=== PATIENT | female | born 1945 | race Caucasian/White ===

== ENCOUNTER → 2016-12-05 | Outpatient (CLI) | payer BC ==
[~2016-12-05] MED LIST: ANAS1TAB6 PO; ASPI81TA28 PO; CALC1CHW47 PO; CEPH500C PO; CHOL1CHW16 PO; CYAN100020 PO; ESCI10TA17 PO; FERR325T51 PO; FIBE1CHW PO; IRBE-37 PO; LXP10 PO; MAGN1CAP2 PO; METF1000 PO; METF500T PO; METO25TA56 PO; OMEG10007 PO; ONDA4TAB10 SL; PANT40TA PO; REPA1TAB42 PO; SIMV40TA2 PO; SITA100T3 PO
[2016-12-05 09:48] LABS: ALT/SGPT 28 U/L (12-78); BLOOD UREA NITROGEN 30 mg/dl (7-18); BUN/CREATININE RATIO 21.1 (10-20); CALCIUM 9.4 mg/dl (8.5-10.1); CARBON DIOXIDE 27 mmol/L (21-32); CHLORIDE 106 mmol/L (98-107); GLUCOSE 166 mg/dl (70-99); MAGNESIUM 1.4 mg/dl (1.8-2.4); POTASSIUM 4.6 mmol/L (3.5-5.1); SODIUM 142 mmol/L (136-145)
[2016-12-05 09:52] LABS: ALB/GLOB RATIO 1.1 (0.9-2); ALKALINE PHOSPHATASE 75 U/L (45-117); AST/SGOT 23 U/L (15-37); CHOLESTEROL 112 mg/dl (0-200); CHOLESTEROL/HDL RATIO 2.4; HDL CHOLESTEROL 47 mg/dl; LDL CHOLESTEROL CALCULATED 48 mg/dl; TRIGLYCERIDES 84 mg/dl (0-150); VERY LOW DENSITY LIPOPROT CALC 17 mg/dl
[2016-12-05 10:02] LABS: ESTIMATED AVERAGE GLUCOSE 123 mg/dl; HA1C FLAG Normal (Normal)
== END | disposition home or self-care (01) ==
LOC: C.LAB 08:46
PROVIDERS: ATTEND Internal Medicine Geriatric Medicine
DX: I10 Essential (primary) hypertension (principal); E78.5 Hyperlipidemia, unspecified; I25.10 Atherosclerotic heart disease of native coronary artery without angina pectoris; E11.9 Type 2 diabetes mellitus without complications; R94.39 Abnormal result of other cardiovascular function study; Z12.31 Encounter for screening mammogram for malignant neoplasm of breast; Z85.3 Personal history of malignant neoplasm of breast

== ENCOUNTER → 2016-12-05 | Outpatient (CLI) | payer BC ==
--- NOTE | 2016-12-09 13:32 | MAMMOGRAPHY REPORT ---
UNILATERAL LEFT DIGITAL SCREENING MAMMOGRAM TOMOSYNTHESIS WITH CAD: 12/05/2016 CLINICAL HISTORY: Asymptomatic. Personal history of breast cancer. TECHNIQUE: Breast tomosynthesis in addition to standard 2D mammography was performed. Current study was also evaluated with a Computer Aided Detection (CAD) system. Left CC and MLO 2-D and tomosynth esis images were obtained. COMPARISON: Comparison is made to exams dated: 11/30/2015 mammogram, 11/24/2014 mammogram, 11/18/2013 mammogram, 11/17/2012 mammogram, 11/14/2011 mammogram, and 11/07/2010 mammogram - [facility]. BREAST COMPOSITION: The tissue of the left breast is heterogeneously dense, which may obscure small masses. FINDINGS: There is a possible 11 mm mass seen within the left breast posterior to the nipple on the cc view middle depth, best seen on the tomosynthesis images, not clearly evident on the MLO views. While the appearance of this region is similar on 2-D exams going back to at least 2011, given the subtle mammographic appearance of the right breast cancer, further evaluation with ultrasound and po ssible additional spot compression views is recommended. The remainder of the left breast is stable compared to prior exams, without suspicious masses, calci fications, or areas of architectural distortion noted. Scattered benign-appearing calcifications ar e stable. IMPRESSION: ACR BI-RADS CATEGORY 0: INCOMPLETE EVALUATION: NEED ADDITIONAL IMAGING EVALUATION Possible left breast mass, for which additional imaging evaluation is recommended. The patient will be called to schedule an appointment. Approximately 10% of breast cancers are not detected with mammography. A negative mammographic repor t should not delay biopsy if a clinically suggestive mass is present. Dian Powell M.D. /:12/06/2016 16:30:33 Bridge Opener: Lisa TORRES(R)(M), [facility] letter sent: Addl Imaging 0 BI-RADS Code: ACR BI-RADS Category 0: Incomplete Evaluation: Need Additional Imaging Evaluation
== END | disposition home or self-care (01) ==
LOC: C.MAMM 09:28
PROVIDERS: ATTEND Internal Medicine
DX: Z12.31 Encounter for screening mammogram for malignant neoplasm of breast (principal); Z85.3 Personal history of malignant neoplasm of breast

== ENCOUNTER 2016-12-21 12:39 | Emergency (ER) | payer BC ==
[~2016-12-21] VITALS: Ht 167.6 cm; Wt 89.9 kg
[~2016-12-21 12:39] MED LIST changes: -ANAS1TAB6 PO; -CEPH500C PO; -LXP10 PO; -ONDA4TAB10 SL
[2016-12-21 12:45] VITALS: Ht 167.6 cm; Wt 89.9 kg
[2016-12-21] MEDS ORDERED: LXP10 PO (13:22)
[2016-12-21 13:58] LABS: BASO % 0.1 %; BASO ABS # 0.01 K/uL (0-0.2); COMPLETE YES; HEMATOCRIT 32.7 % (37-47); IG% 0.3 %; LYMPH % 14.7 %; LYMPH ABS # 1.53 K/uL (1.2-3.4); MEAN CELL VOLUME 85.4 fL (80-100); MEAN CORPUSCULAR HEMOGLOBIN 29.8 pg (25-34); MEAN CORPUSCULAR HGB CONC 34.9 g/dl (32-36); MEAN PLATELET VOLUME 8.7 fL (7.4-10.4); MONO % 6.9 %; PLATELET COUNT 152 K/uL (130-400); RED BLOOD COUNT 3.83 M/uL (4.2-5.4); WHITE BLOOD COUNT 10.38 K/uL (4.8-10.8)
[2016-12-21] MEDS ORDERED: ALBUTEROL HFA 8 GM INHALER INH STA (14:03)
--- NOTE | 2016-12-21 14:11 | EMERGENCY ROOM VISIT NOTE ---
History Report prepared by Erin: Yamila Barrera Under the Supervision of: Dr. José Conti M.D. First contact with patient: 13:58 Chief Complaint: FLU LIKE SX Stated Complaint: DIARRHEA, FLU LIKE SX History of Present Illness The patient is a 71 year old female who presents to the Emergency Room with complaints of persistent flu like symptoms that began Friday. She currently rates her discomfort as a 3/10 in severity. The patient states that she has been experiencing a cough, fever, and chills. She reports normal urination, but additionally states that she has been experiencing diarrhea. The patient states that she has had a decrease in appetite and a decrease in fluid intake. She states that she has had difficulty getting her medications down, due to her illness. The patient states that she has been experiencing abdominal pain, due to her persistent cough. She additionally notes body aches today. The patient denies ever using an inhaler for her symptoms. Source of History: patient Onset: Friday Position: other (global) Symptom Intensity: 3/10 Quality: other (flu like symptoms) Timing: other (persistent) Associated Symptoms: + abdominal pain, + chills, + cough, + diarrhea, + fevers Note: Associated Symptoms: body aches Review of Systems All systems have been listed, reviewed, and are negative other than those previously mentioned. Please see Additional Medical History Sheet. Past Medical & Surgical Medical Problems: (1) ARUNA (acute kidney injury) (2) Anemia (3) Benign hypertension (4) Breast cancer (5) Diabetes mellitus (6) Dyspnea Family History Cancer Diabetes mellitus FH: heart disease Hypertension Social History Smoking Status: Former Smoker Alcohol Use: none Drug Use: none Marital Status: single Housing Status: lives alone Occupation Status: retired Current/Historical Medications Scheduled Aspirin (Aspirin Ec), 81 MG PO QAM Calcium & Phosphorus W/ Vitami (Calcium Gummies), 2 TABS PO QAM Cholecalciferol (Vitamin D3 Adult Gummies), 2,000 UNITS PO QAM Cyanocobalamin (Vitamin B12), 1 TAB PO QAM Escitalopram (Lexapro), 10 MG PO QAM Escitalopram Oxalate (Escitalopram Oxalate), 10 MG PO PM Ferrous Sulfate (Iron Supplement), 1 TAB PO BID Fiber (Fiber Select Gummies), 2 TAB PO QAM Fish Oil (Redcrest-3), 1 CAP PO QAM Irbesartan (Avapro), 150 MG PO AM Magnesium Oxide (Mg Supplement (Magnesium), 400 MG PO QAM Metformin Hcl (Glucophage), 1,000 MG PO BID Metformin Hcl (Glucophage), 500 MG PO HS Metoprolol Tartrate (Lopressor) (Lopressor), 25 MG PO BID Pantoprazole (Protonix), 40 MG PO BID Repaglinide (Prandin), 1 MG PO TID Sitagliptin Phosphate (Januvia), 100 MG PO QAM Allergies Coded Allergies: Benzonatate (Verified Allergy, Unknown, PATIENT IS UNAWARE OF REACTION WAS PLACED ON CHART, 12/21/16) Propoxyphene (Verified Allergy, Unknown, PATIENT IS UNAWARE OF REACTION WAS PLACED ON CHART, 12/21/16) Codeine (Verified Adverse Reaction, Unknown, NAUSEA/VOMITING, 12/21/16) Physical Exam Vital Signs Date Time Temp Pulse Resp B/P Pulse Ox O2 Delivery O2 Flow Rate FiO2 12/21/16 14:35 77 18 133/64 91 Room Air 12/21/16 12:45 37.6 98 20 126/61 96 Room Air Physical Exam GENERAL: Patient awake, alert, oriented x 3. Patient follows commands. Patient does not appear toxic. Patient is adequately hydrated and well- nourished. SKIN: No erythema, pallor, cyanosis or rash HEENT: Normal head, pupils equal, reactive to light and accommodation. Increased cerumen bilaterally. Oral cavity and posterior pharynx appear normal. Neck: Without adenopathy, no neck vein distention. CHEST: Mastectomy to the right side. LUNGS: Occasional cough, otherwise clear. No wheezes, no rales, no rhonchi. HEART: No murmurs. No gallops. No rubs ABDOMEN: Obese. No masses, no rebound, no hepatomegaly or splenomegaly. EXTREMITIES: No signs of trauma. No pedal or pretibial edema. No calf or thigh tenderness. NEUROLOGIC: Cranial nerves II-XII within normal limits. No gross motor sensory function deficits. Medical Decision & Procedures ER Provider Diagnostic Interpretation: X ray results are stated below per my interpretation and the radiologist's interpretation. CHEST 2 VIEWS ROUTINE CLINICAL HISTORY: Cough. COMPARISON STUDY: Chest radiograph February 03, 2016. FINDINGS: A left subclavian Xjwzmb-f-Kgxv is in place. Cardiomediastinal silhouette is normal. There is no pneumothorax or pleural effusion. Mild left lower lung interstitial thickening is unchanged and is likely chronic. IMPRESSION: No acute cardiopulmonary findings. Electronically signed by: Keith Marion M.D. 12/21/2016 2:43 PM Dictated Date/Time: 12/21/2016 2:40 PM Laboratory Results 12/21/16 13:45 Red Blood Count 3.83, Mean Corpuscular Volume 85.4, Mean Corpuscular Hemoglobin 29.8, Mean Corpuscular Hemoglobin Concent 34.9, Mean Platelet Volume 8.7, Neutrophils (%) (Auto) 78.0, Lymphocytes (%) (Auto) 14.7, Monocytes (%) (Auto) 6.9, Eosinophils (%) (Auto) 0.0, Basophils (%) (Auto) 0.1, Neutrophils # (Auto) 8.09, Lymphocytes # (Auto) 1.53, Monocytes # (Auto) 0.72, Eosinophils # (Auto) 0.00, Basophils # (Auto) 0.01 12/21/16 13:45 Test 12/21/16 13:45 White Blood Count 10.38 K/uL (4.8-10.8) Red Blood Count 3.83 M/uL (4.2-5.4) Hemoglobin 11.4 g/dL (12.0-16.0) Hematocrit 32.7 % (37-47) Mean Corpuscular Volume 85.4 fL (80-100) Mean Corpuscular Hemoglobin 29.8 pg (25-34) Mean Corpuscular Hemoglobin Concent 34.9 g/dl (32-36) Platelet Count 152 K/uL (130-400) Mean Platelet Volume 8.7 fL (7.4-10.4) Neutrophils (%) (Auto) 78.0 % Lymphocytes (%) (Auto) 14.7 % Monocytes (%) (Auto) 6.9 % Eosinophils (%) (Auto) 0.0 % Basophils (%) (Auto) 0.1 % Neutrophils # (Auto) 8.09 K/uL (1.4-6.5) Lymphocytes # (Auto) 1.53 K/uL (1.2-3.4) Monocytes # (Auto) 0.72 K/uL (0.11-0.59) Eosinophils # (Auto) 0.00 K/uL (0-0.5) Basophils # (Auto) 0.01 K/uL (0-0.2) RDW Standard Deviation 41.4 fL (36.4-46.3) RDW Coefficient of Variation 13.2 % (11.5-14.5) Immature Granulocyte % (Auto) 0.3 % Immature Granulocyte # (Auto) 0.03 K/uL (0.00-0.02) Anion Gap 13.0 mmol/L (3-11) Est Creatinine Clear Calc Drug Dose 32.4 ml/min Estimated GFR () 32.3 Estimated GFR (Non- 27.8 BUN/Creatinine Ratio 17.6 (10-20) Calcium Level 8.8 mg/dl (8.5-10.1) Total Bilirubin 0.7 mg/dl (0.2-1) Aspartate Amino Transf (AST/SGOT) 24 U/L (15-37) Alanine Aminotransferase (ALT/SGPT) 21 U/L (12-78) Alkaline Phosphatase 54 U/L (45-117) Total Protein 7.1 gm/dl (6.4-8.2) Albumin 3.3 gm/dl (3.4-5.0) Globulin 3.8 gm/dl (2.5-4.0) Albumin/Globulin Ratio 0.9 (0.9-2) Influenza Type A Antigen Neg for Influ A (NEG) Influenza Type B Antigen Neg for Influ B (NEG) Laboratory results as stated above per my review. Medications Administered Medications (Trade) Dose Ordered Sig/Michael Route Start Time Stop Time Status Last Admin Dose Admin Sodium Chloride (Nss 1000ml) 1,000 ml @ 1,000 mls/hr Q1H ONCE IV 12/21/16 14:15 12/21/16 15:14 12/21/16 14:15 1,000 MLS/HR Ondansetron HCl (Zofran Inj) 4 mg Q1HWA PRN IV 12/21/16 14:15 01/20/17 14:14 12/21/16 14:33 4 MG Albuterol (Ventolin Hfa Inhaler) 2 puffs NOW STAT INH 12/21/16 14:03 12/21/16 14:05 DC 12/21/16 14:33 2 PUFFS ED Course 1359: Past medical records reviewed. The patient was evaluated in room B3B. A complete history and physical examination was performed. 1403: Ordered Albuterol 2 puffs INH. 1415: Ordered Zofran Inj 4 mg IV, Sodium Chloride 1000 ml @ 1000 mls/hr IV. 1458: I reevaluated the patient and she is resting comfortably while drinking fluids. I discussed the exam findings with her and I discussed the treatment plan. She verbalized complete understanding and agreement. She is ready to go home. Medical Decision Nurses notes reviewed. Medical history sheet reviewed. Differential diagnosis includes but is not limited to: pneumonia, bronchitis, upper respiratory infection, influenza and other viral infections. Multiple labs and imaging were obtained. Please see above. The patient has negative influenza testing. White count is not elevated. The patient was given IV fluids and later the patient was able to drink fluids well here. The patient will be given a prescription for Zofran. She will be encouraged to continue pushing fluids and taking acetaminophen as needed for aches, pain or fever. Impression Primary Impression: Influenza-like symptoms Additional Impressions: Diabetes mellitus out of control Hypokalemia Scribe Attestation The scribe's documentation has been prepared under my direction and personally reviewed by me in its entirety. I confirm that the note above accurately reflects all work, treatment, procedures, and medical decision making performed by me. Departure Information Dispostion Home / Self-Care Prescriptions Ondasetron Odt (ZOFRAN ODT) 4 Mg Tab 4 MG SL Q6H for Nausea, #10 TAB Prov: José Conti M.D. 12/21/16 Referrals No Doctor, Assigned (PCP) Patient Instructions My [facility] Additional Instructions 1 Zofran every 4 hours as needed for nausea. Continue all of your current medications as prescribed. Return here if you're unable to hold down liquids. Follow-up with your family physician within the next 10 days. Problem Qualifiers
[2016-12-21] MEDS ORDERED: ONDANSETRON INJ 2 MG/ML 2 ML VIAL IV PRN (14:15)
[2016-12-21] MEDS ORDERED: SODIUM CHLORIDE 0.9% 1000ML 1,000 ML IV ONE (14:15)
--- NOTE | 2016-12-21 14:44 | DIAGNOSTIC IMAGING REPORT ---
CHEST 2 VIEWS ROUTINE CLINICAL HISTORY: Cough. COMPARISON STUDY: Chest radiograph February 03, 2016. FINDINGS: A left subclavian Sqchxv-m-Wscf is in place. Cardiomediastinal silhouette is normal. There is no pneumothorax or pleural effusion. Mild left lower lung interstitial thickening is unchanged and is likely chronic. IMPRESSION: No acute cardiopulmonary findings. Electronically signed by: Keith Marion M.D. 12/21/2016 2:43 PM Dictated Date/Time: 12/21/2016 2:40 PM
[2016-12-21 14:50] LABS: BUN/CREATININE RATIO 17.6 (10-20); CALCIUM 8.8 mg/dl (8.5-10.1); CREATININE 1.8 mg/dl (0.60-1.20); POTASSIUM 3.2 mmol/L (3.5-5.1)
[2016-12-21 14:53] LABS: ALB/GLOB RATIO 0.9 (0.9-2)
[2016-12-21] MEDS ORDERED: ONDA4TAB10 SL (15:12)
[2016-12-21 16:03] VITALS: BP 148/62; PULSE 84; TEMP 37.4; O2SAT 92
[2017-07-14] MEDS ORDERED: CEPH500C PO (09:08)
[2017-07-17] MEDS ORDERED: ANAS1TAB6 PO (09:17)
== END 2016-12-21 16:04 | disposition home or self-care (01) ==
LOC: C.EDB 12:41
DX: R19.7 Diarrhea, unspecified (principal); R05 Cough; R50.9 Fever, unspecified; E11.9 Type 2 diabetes mellitus without complications; E87.6 Hypokalemia; I10 Essential (primary) hypertension; Z87.891 Personal history of nicotine dependence; Z80.9 Family history of malignant neoplasm, unspecified; Z83.3 Family history of diabetes mellitus

== ENCOUNTER → 2016-12-30 | Outpatient (CLI) | payer BC ==
[~2016-12-30] MED LIST changes: +ANAS1TAB6 PO; +CEPH500C PO; +LXP10 PO; +ONDA4TAB10 SL; -SIMV40TA2 PO
--- NOTE | 2016-12-30 15:22 | ECHOCARDIOGRAM REPORT ---
*NOTICE TO RECEIVING [employer] AGENCY This information is strictly Confidential and protected under [place] law. [place] law prohibits you from making any further disclosure of this information unless further disclosure is expressly permitted by the written consent of the person to whom it pertains or is authorized by law. A general authorization for the release of medical or other information is not sufficient for this purpose. Hospital accepts no responsibility if the information is made available to any other person, INCLUDING THE PATIENT. Interpretation Summary * Name: ARLEY ARCINIEGA Study Date: 12/30/2016 02:00 PM BP: 154/62 mmHg * Patient Location: [facility] HR: 81 * : 1945 (M/d/yyyy) Gender: Female Height: 66 in * Age: 71 yrs Ethnicity: CA Weight: 195 lb * Ordering Physician: Rosa Hawk * Referring Physician: Rosa Hawk . MANAGER OF CUSTOMER BILLING * Performed By: Yamila Rankin RDCS * * Reason For Study: BREAST CA, CHEMO * BSA: 2.0 m2 * History: BREAST CA, CHEMO * -- Conclusions -- * Compard with 09/06/16 study, no significant change. * The left ventricle is normal in size. * Left ventricular systolic function is normal. * Ejection Fraction = 60-65%. * The left ventricular wall motion is normal. * There is mild concentric left ventricular hypertrophy. * Grade I diastolic dysfunction, (abnormal relaxation pattern). * There is mild mitral regurgitation. * The left atrial size is normal. * There is trace tricuspid regurgitation. * Right ventricular systolic pressure is normal. * LV global longitudinal strain average = -17.0% (low normal). No prior strain measurements for comparison. Procedure Details * Left Ventricle The left ventricle is normal in size. There is mild concentric left ventricular hypertrophy. Ejection Fraction = 60-65%. Left ventricular systolic function is normal. The left ventricular wall motion is normal. * Right Ventricle The right ventricle is mildly dilated. There is normal right ventricular wall thickness. The right ventricular systolic function is normal. * Atria The left atrial size is normal. The right atrium is mildly dilated. The interatrial septum is intact with no evidence for an atrial septal defect. * Mitral Valve The mitral valve is normal in structure and function. There is no mitral valve stenosis. There is mild mitral regurgitation. * Tricuspid Valve The tricuspid valve is normal in structure and function. There is trace tricuspid regurgitation. Right ventricular systolic pressure is normal. * Aortic Valve The aortic valve is normal in structure and function. No aortic regurgitation is present. * Pulmonic Valve The pulmonic valve is normal in structure and function. Trace pulmonic valvular regurgitation. * Great Vessels The aortic root is normal size. No obvious dissection could be visualized. The pulmonary artery is normal size. * Pericardium/Pleural There is no pericardial effusion. * Left Ventricular Diastolic Function Grade I diastolic dysfunction, (abnormal relaxation pattern). * * MMode 2D Measurements and Calculations * IVSd 1.4 cm * IVSs 2.1 cm * * LVIDd 3.4 cm * LVIDs 2.1 cm * LVPWd 1.4 cm * LVPWs 1.6 cm * * IVS/LVPW 1.0 * FS 38.6 % * EDV(Teich) 48.9 ml * ESV(Teich) 14.7 ml * EF(Teich) 70.0 % * * EDV(cubed) 40.8 ml * ESV(cubed) 9.5 ml * EF(cubed) 76.8 % * % IVS thick 49.3 % * % LVPW thick 17.9 % * * LV mass(C)d 165.3 grams * LV mass(C)dI 83.5 grams/m\S\2 * LV mass(C)s 155.6 grams * LV mass(C)sI 78.7 grams/m\S\2 * * SV(Teich) 34.2 ml * SI(Teich) 17.3 ml/m\S\2 * SV(cubed) 31.4 ml * SI(cubed) 15.9 ml/m\S\2 * * Ao root diam 3.3 cm * Ao root area 8.5 cm\S\2 * LA dimension 2.4 cm * * LA/Ao 0.74 * * LVAd ap4 24.0 cm\S\2 * LVLd ap4 7.6 cm * EDV(MOD-sp4) 62.3 ml * EDV(sp4-el) 64.4 ml * LVAs ap4 13.6 cm\S\2 * LVLs ap4 6.8 cm * ESV(MOD-sp4) 24.4 ml * ESV(sp4-el) 23.4 ml * EF(MOD-sp4) 60.8 % * EF(sp4-el) 63.7 % * * LVAd ap2 18.2 cm\S\2 * LVLd ap2 6.9 cm * EDV(MOD-sp2) 40.5 ml * EDV(sp2-el) 40.7 ml * LVAs ap2 9.7 cm\S\2 * LVLs ap2 5.3 cm * ESV(MOD-sp2) 15.1 ml * ESV(sp2-el) 15.0 ml * EF(MOD-sp2) 62.7 % * EF(sp2-el) 63.0 % * * LVLd %diff -10.11 % * EDV(MOD-bp) 52.7 ml * LVLs %diff -26.96 % * ESV(MOD-bp) 20.5 ml * EF(MOD-bp) 61.0 % * * SV(MOD-sp4) 37.9 ml * SI(MOD-sp4) 19.2 ml/m\S\2 * * SV(MOD-sp2) 25.4 ml * SI(MOD-sp2) 12.8 ml/m\S\2 * * SV(MOD-bp) 32.1 ml * SI(MOD-bp) 16.2 ml/m\S\2 * * SV(sp4-el) 41.1 ml * SI(sp4-el) 20.7 ml/m\S\2 * * SV(sp2-el) 25.6 ml * SI(sp2-el) 12.9 ml/m\S\2 * * * Doppler Measurements and Calculations * MV E max keo 53.9 cm/sec * MV A max keo 73.9 cm/sec * * MV E/A 0.73 * * MV dec time 0.31 sec * * Ao V2 max 128.6 cm/sec * Ao max PG 6.6 mmHg * Ao max PG (full) 1.4 mmHg * * LV V1 max PG 5.2 mmHg * * LV V1 max 113.8 cm/sec * * TR max keo 226.8 cm/sec * * *
== END | disposition home or self-care (01) ==
LOC: C.CPL 12:38
PROVIDERS: ATTEND Nurse Practitioner Family
DX: C50.211 Malignant neoplasm of upper-inner quadrant of right female breast (principal)

== ENCOUNTER → 2017-01-01 | Outpatient (CLI) | payer BC ==
--- NOTE | 2017-01-01 12:35 | MAMMOGRAPHY REPORT ---
ULTRASOUND OF LEFT BREAST: 01/01/2017 CLINICAL HISTORY: Callback from screening mammogram for possible left breast mass. COMPARISON: Comparison is made to exams dated: 12/05/2016 mammogram, 11/30/2015 mammogram, 12/08/2015 ma mmogram, 11/24/2014 mammogram, 11/18/2013 mammogram, and 11/17/2012 mammogram - [facility] enter. TECHNIQUE: Real-time targeted ultrasound of the left breast was performed. FINDINGS: Real-time, high-resolution targeted ultrasound was performed of the left breast at 12:00, 6:00, and subareolar breast, in the region of the possible mass seen on one view only on the recent screening mammogram. The breast parenchyma is heterogeneous on ultrasound, with shadowing of zita l dense fibroglandular tissue seen which reduces the sensitivity of the exam. However, no suspiciou s mass or other suspicious sonographic abnormality is noted. In addition, the asymmetry seen on the screening mammogram does appear similar to prior 2-D images including the 2012 exam. Given the sta bility on 2-D images to multiple prior exams and given the lack of abnormality on ultrasound, the as ymmetry is considered benign and likely represents normal fibroglandular tissue. IMPRESSION: ACR BI-RADS CATEGORY 2: BENIGN No suspicious sonographic abnormality seen in the region of the possible left breast mass on the rec ent screening mammogram. Given that the region appears similar to prior exams including the 2012 ex am and given the lack of abnormality on ultrasound, the finding is benign and likely represents the patient's normal fibroglandular tissue pattern. There is no sonographic evidence of malignancy. A 1 year screening mammogram is recommended. The patient was verbally notified of the results. Dian Powell M.D. ah/:01/01/2017 11:10:34 Technical Customer Support Specialist: Dian Powell MD, [facility] letter sent: Normal 11/04 BI-RADS Code: ACR BI-RADS Category 2: Benign
== END | disposition home or self-care (01) ==
LOC: C.MAMM 10:45
PROVIDERS: ATTEND Internal Medicine
DX: N63 Unspecified lump in breast (principal)

== ENCOUNTER → 2017-01-31 | Outpatient (CLI) | payer BC ==
[~2017-01-31] MED LIST changes: +REPA1TAB40 PO; -REPA1TAB42 PO
--- NOTE | 2017-01-31 12:19 | DIAGNOSTIC IMAGING REPORT ---
RIGHT RIBS UNILATERAL WITH PA CHEST CLINICAL HISTORY: Right posterior rib pain following fall. COMPARISON STUDY: Chest radiograph December 21, 2016 and PET/CT January 01, 2016. FINDINGS: A left subclavian Qozetw-h-Tlob is in place. There are right breast/axillary surgical clips. Mild left basilar opacity favors atelectasis. There is no pneumothorax. There is no consolidation. There are numerous old right rib fractures. A mildly fracture of the right posterior 10th rib is likely old although is age-indeterminate. IMPRESSION: No pneumothorax. Age indeterminate, but likely old, mildly displaced right posterior 10th rib fracture. Numerous old right-sided rib fractures. Electronically signed by: Keith Marion M.D. 01/31/2017 12:18 PM Dictated Date/Time: 01/31/2017 12:08 PM
== END | disposition home or self-care (01) ==
LOC: C.RADBC 11:39
PROVIDERS: ATTEND Internal Medicine
DX: T14.90 Injury, unspecified (principal); M54.6 Pain in thoracic spine; X58.XXXA Exposure to other specified factors, initial encounter

== ENCOUNTER → 2017-04-15 | Outpatient (CLI) | payer BC ==
[2017-04-15 13:20] LABS: URINE APPEARANCE CLEAR (CLEAR); URINE BILIRUBIN NEG (NEG); URINE COLOR YELLOW; URINE EPITHELIAL CELL AUTO 0-5 /lpf (0-5); URINE NITRITE NEG (NEG); URINE PH 6.5 (4.5-7.5); URINE SPECIFIC GRAVITY 1.017 (1.000-1.030); UROBILINOGEN NEG (NEG)
[2017-04-15 13:24] LABS: MANUAL MICROSCOPIC REQUIRED? NO; REVIEW REQ? NO
[2017-04-15 13:50] LABS: URINE PROTIEN/CREAT RATIO 0.3 (0-0.2); URINE TOTAL PROTEIN 28.6 mg/dl (0-11.9)
== END | disposition home or self-care (01) ==
LOC: C.LABPBG 10:43
PROVIDERS: ATTEND Internal Medicine Nephrology
DX: N18.3 Chronic kidney disease, stage 3 (moderate) (principal)

== ENCOUNTER → 2017-04-24 | Outpatient (CLI) | payer BC ==
[2017-04-24 10:28] LABS: CHOLESTEROL/HDL RATIO 2.5
== END | disposition home or self-care (01) ==
LOC: C.LAB 08:13
PROVIDERS: ATTEND Internal Medicine Cardiovascular Disease
DX: E78.5 Hyperlipidemia, unspecified (principal); I10 Essential (primary) hypertension; I25.10 Atherosclerotic heart disease of native coronary artery without angina pectoris

== ENCOUNTER → 2017-06-16 | Outpatient (CLI) | payer BC ==
[~2017-06-16] MED LIST changes: -REPA1TAB40 PO; +REPA1TAB42 PO
[2017-06-16 18:11] LABS: URINE APPEARANCE CLOUDY (CLEAR); URINE BILIRUBIN NEG (NEG); URINE COLOR YELLOW; URINE NITRITE NEG (NEG); URINE PH 7.5 (4.5-7.5); URINE SPECIFIC GRAVITY 1.019 (1.000-1.030); UROBILINOGEN NEG (NEG)
[2017-06-16 18:28] LABS: MANUAL MICROSCOPIC REQUIRED? NO; REVIEW REQ? YES; SULFASALICYLIC ACID NEG (NEG)
[2017-06-16 19:18] LABS: ZZUR CULT IF INDIC CLEAN CATCH YES
== END | disposition home or self-care (01) ==
LOC: C.LABPBG 14:35
PROVIDERS: ATTEND Internal Medicine Geriatric Medicine
DX: R39.9 Unspecified symptoms and signs involving the genitourinary system (principal)

== ENCOUNTER → 2017-07-10 | Outpatient (CLI) | payer BC ==
[~2017-07-10] MED LIST changes: -ONDA4TAB10 SL
--- NOTE | 2017-07-10 12:32 | DIAGNOSTIC IMAGING REPORT ---
RIGHT TOE(S) MIN 2 VIEWS CLINICAL HISTORY: R 2ND TOE/ NON HEALING WOUND Right infection COMPARISON: None. DISCUSSION: Soft tissue edema surrounding the distal aspect of the second toe. No acute bony abnormality. Moderate degenerative change. No lytic or blastic process. IMPRESSION: Soft tissue edema. No acute bony abnormality. No bony destructive process. The above report was generated using voice recognition software. It may contain grammatical, syntax or spelling errors. Electronically signed by: Simone Galloway M.D. 07/10/2017 12:31 PM Dictated Date/Time: 07/10/2017 12:30 PM
== END | disposition home or self-care (01) ==
LOC: C.RAD 12:12
PROVIDERS: ATTEND Emergency Medicine
DX: S91.104A Unspecified open wound of right lesser toe(s) without damage to nail, initial encounter (principal); X58.XXXA Exposure to other specified factors, initial encounter; E11.628 Type 2 diabetes mellitus with other skin complications; R60.0 Localized edema

== ENCOUNTER → 2017-07-25 | Outpatient (CLI) | payer BC ==
[~2017-07-25] MED LIST changes: -METF500T PO; -PANT40TA PO
[2017-07-25 12:49] LABS: ALT/SGPT 27 U/L (12-78); AST/SGOT 21 U/L (15-37); BLOOD UREA NITROGEN 24 mg/dl (7-18); CALCIUM 9.4 mg/dl (8.5-10.1); CARBON DIOXIDE 27 mmol/L (21-32); CHLORIDE 108 mmol/L (98-107); GLUCOSE 132 mg/dl (70-99); POTASSIUM 4.4 mmol/L (3.5-5.1); SODIUM 141 mmol/L (136-145)
[2017-07-25 12:51] LABS: ALB/GLOB RATIO 1.3 (0.9-2); ALKALINE PHOSPHATASE 70 U/L (45-117); PHOSPHORUS 3.9 mg/dl (2.5-4.9)
[2017-07-25 12:56] LABS: ESTIMATED AVERAGE GLUCOSE 128 mg/dl; HA1C FLAG Normal (Normal)
--- NOTE | 2017-08-04 11:32 | CODING QUERY MEDICAL NECESSITY ---
CQSUPPORTING DIAGNOSIS NEEDED A supporting diagnosis is required for the test/procedure performed on this patient in order for us to be reimbursed by the patient's insurance. Please provide a supporting diagnosis for the following test/procedure listed below next to the test name along with your signature. *If there is no additional diagnosis for this patient that would support the following test/procedure please document that below next to the test/procedure. Test(s)/Procedure(s) that require a supporting diagnosis: DOS 07/25/17 GLYCATED HEMOGLOBIN TEST Provider Signature: Date: Thank you Crystal Salas Health Information Management Once completed, please kindly fax back to [phone] For questions please call [phone]
== END | disposition home or self-care (01) ==
LOC: C.LABPBG 09:05
PROVIDERS: ATTEND Internal Medicine Nephrology
DX: N18.3 Chronic kidney disease, stage 3 (moderate) (principal); E55.9 Vitamin D deficiency, unspecified

== ENCOUNTER → 2017-11-24 | Outpatient (CLI) | payer BC ==
[~2017-11-24] MED LIST changes: -CEPH500C PO; +CEPH500C2 PO; +REPA1TAB40 PO; -REPA1TAB42 PO
[2017-11-24 12:38] LABS: HEMOGLOBIN A1C 6.7 % (4.5-5.6)
== END | disposition home or self-care (01) ==
LOC: C.LABPBG 10:18
PROVIDERS: ATTEND Internal Medicine
DX: E11.9 Type 2 diabetes mellitus without complications (principal)

== ENCOUNTER → 2017-12-11 | Outpatient (CLI) | payer BC ==
[~2017-12-11] MED LIST changes: +ATOR-24 PO; -CEPH500C2 PO; -ESCI10TA17 PO; -FERR325T51 PO; +GLC/500 PO; +IRON1CAP2 PO; +METF-384 PO; -METF1000 PO
--- NOTE | 2017-12-11 14:28 | MAMMOGRAPHY REPORT ---
UNILATERAL LEFT DIGITAL SCREENING MAMMOGRAM TOMOSYNTHESIS WITH CAD: 12/11/2017 CLINICAL HISTORY: Routine screening. The patient has no current complaints. TECHNIQUE: Breast tomosynthesis in addition to standard 2D mammography was performed. Current study was also evaluated with a Computer Aided Detection (CAD) system. COMPARISON: Comparison is made to exams dated: 01/01/2017 ultrasound, 12/05/2016 mammogram, 11/30/2015 ma mmogram, 11/24/2014 mammogram, 11/18/2013 mammogram, and 11/17/2012 mammogram - [facility] nter. BREAST COMPOSITION: The tissue of the left breast is heterogeneously dense, which may obscure small masses. FINDINGS: Status post right mastectomy. There are no suspicious masses, calcifications, or areas of architectural distortion noted in the left breast. There has been no significant interval change co mpared to prior exams. Scattered benign-appearing left breast calcifications are not significantly c hanged. Nodular asymmetry seen within the left retroareolar breast on the cc view appears similar to prior exams including the 2013 and 2011 exams. IMPRESSION: ACR BI-RADS CATEGORY 2: BENIGN There is no mammographic evidence of malignancy in the left breast. A 1 year screening mammogram is r ecommended. The patient will receive written notification of the results. Approximately 10% of breast cancers are not detected with mammography. A negative mammographic report should not delay biopsy if a clinically suggestive mass is present. Dian Powell M.D. /:12/11/2017 13:42:10 [employer]er: Whitney TORRES(Jasson)(Millie), [facility] letter sent: Normal 1/2 BI-RADS Code: ACR BI-RADS Category 2: Benign
== END | disposition home or self-care (01) ==
LOC: C.MAMM 08:44
PROVIDERS: ATTEND Internal Medicine
DX: Z12.31 Encounter for screening mammogram for malignant neoplasm of breast (principal); Z90.11 Acquired absence of right breast and nipple

== ENCOUNTER → 2017-12-16 | Day surgery (SDC) | payer BC ==
[2017-12-09 07:43] VITALS: Ht 167.6 cm; Wt 91.8 kg
[~2017-12-16] VITALS: Ht 167.6 cm; Wt 91.8 kg
[~2017-12-16] MED LIST changes: +500ML BSS 0.3ML EPI 1:1000PF IRRIG ONE; +ACETAMINOPHEN 325 MG TAB PO PRN; +AMVISC PLUS 0.8ML SYRINGE INT OCU ONE; +ATROPINE SULFATE 0.1 MG/ML 5ML SYR IV PRN; +BSS FLUSH ONE; +EpHEDrine SULFATE INJ 50 MG/ML AMP IV PRN; +EpINEphrine INJ 1MG/ML AMP 1 MG/ML AMP ONE; +LACTATED RINGER'S 1000ML 500 ML IV SCH; +LIDOCAINE 3.5% OPH GEL PER APPLICATION CHARGE ONE; +LIDOCAINE HCL 1% MPF 2 ML VIAL ONE; +MIDAZOLAM HCL 1 MG/ML 2ML VIAL ONE; +ONDANSETRON INJ 2 MG/ML 2 ML VIAL IV PRN; +PHENYLEPHRINE HCL 10% OP SOLN PER DROP CHARGE OPL SCH; +POVIDONE-IODINE OP SOLN 30 ML BTL ONE; +PROPARACAINE 0.5% OP SOLN PER DROP CHARGE OPL SCH; +TOBRAMYCIN/DEXAMETHASONE OPH OINT PER APPLN CHARGE ONE
[2017-12-16] MEDS: PHENYLEPHRINE HCL 2.5% OP SOLN PER DROP CHARGE OPL SCH ×2 (08:43→08:49)
[2017-12-16] MEDS: TROPICAMIDE 1% OP SOLN PER DROP CHARGE OPL SCH ×2 (08:44→08:51)
[2017-12-16] MEDS: CYCLOPENTOLATE HCL 1% OP SOLN PER DROP CHARGE OPL SCH ×2 (08:46→08:52)
[2017-12-16] MEDS: KETOROLAC 0.5% OP SOLN PER DROP CHARGE OPL SCH ×2 (08:47→08:53)
[2017-12-16] MEDS: GATIFLOXACIN OP SOLN PER DROP CHARGE OPL SCH ×2 (08:48→08:57)
--- NOTE | 2017-12-16 09:00 | History & Physical Bridge - [place] ---
H&P Re-Evaluation Bridge Note: I have examined the patient, reviewed the History & Physical and in the interval since the performance of the History & Physical I have noted the following changes of clinical significance: No changes noted
--- NOTE | 2017-12-16 09:31 | [facility] Operative Report ---
Operative Report Date of Service Dec 16, 2017. Operative Report 1. PREOPERATIVE DIAGNOSIS: Cataract of the left eye. 2. POSTOPERATIVE DIAGNOSIS: Same. 3. PROCEDURE: Phacoemulsification with intraocular lens implantation of the left eye. SURGEON: Dr. Michael Lynch. ANESTHESIA: Topical Lidocaine gel, 1% Non- Preserved intracameral Lidocaine, and monitored intravenous sedation. INDICATIONS FOR THE PROCEDURE: The patient is a 72 - year-old female with a history of cataract of the left eye causing significant visual impairment. The details of the proposed procedure were explained to the patient who asked appropriate questions and following discussion of all risks, benefits and alternatives agreed to have the procedure done. 4. OPERATION AND FINDINGS: DESCRIPTION OF PROCEDURE: After informed consent was obtained, the patient was brought to the Operating Room at the [facility]. The patient was placed in a supine position and then the left eye was prepped and draped in the usual sterile fashion for intraocular surgery. A drop of topical Lidocaine gel was placed in the operative eye. A wire lid speculum was then placed in the fornices. A corneal paracentesis was then created temporally. The Non-Preserved Lidocaine was then instilled into the anterior chamber. The anterior chamber was then pressurized with viscoelastic. A 2.0 mm clear corneal incision was then created temporally. A cystotome was inserted into the anterior chamber and used to create a tear in the anterior lens capsule. This capsular tear was then used to create a small flap and the flap was dragged in a counterclockwise direction in order to create a continuous curvilinear capsulorrhexis. Hydrodissection was accomplished with balanced salt solution. Phacoemulsification of the lens nucleus was then performed in a standard [id number] technique. The phaco time was 24 seconds with an average power of 10 %. The remaining cortical material was removed using irrigation aspiration. The capsular bag was then filled with viscoelastic. A [employer]ch [employer] Lomb MI60L +21.5 diopters lens was then loaded into the injector and injected into the capsular bag. The remaining viscoelastic was removed with the irrigation aspiration handpiece. The wound was hydrated and then checked and found to be watertight. The intraocular pressure was checked and found to be adequate. The wire lid speculum was removed and the patient's face was cleaned and dried. TobraDex ointment was placed in the inferior fornix. The patient was discharged to the Recovery Room having tolerated the procedure well. There were no complications. The patient will be seen tomorrow in the office for follow-up. I attest to the content of the Intraoperative Record and any orders documented therein. Any exceptions are noted below.
[2017-12-16 09:32] VITALS: TEMP 37
--- NOTE | 2017-12-16 09:32 | Discharge Instructions-SurgCtr ---
Discharge Instructions Date of Service Dec 16, 2017. Visit Reason for Visit: Cataract Left Eye Discharge Discharge Diagnosis / Problem: cataract Discharge Goals Goal(s): Improve function Medications Stopped Medications Name(s): metformin. last dose friday Activity Recommendations Activity Limitations: per Instructions/Follow-up section Anesthesia . Post Anesthesia Instructions: If you have had General Anesthesia or IV Sedation: * Do not drive today. * Resume driving when surgeon permits. * Do not make important decisions or sign legal documents today. * Call surgeon for: 1. Temperature elevations greater than 101 degrees F. 2. Uncontrollable pain. 3. Excessive bleeding. 4. Persistent nausea and vomiting. 5. Medication intolerance (nausea, vomiting or rash). * For nausea and vomiting use only clear liquids such as: tea, soda, bouillon until nausea subsides, then gradually increase diet as tolerated. * If you have any concerns or questions, call your surgeon's office. If physician is unavailable and it is an emergency, call 911 or go to the nearest emergency room. . Diet Recommendations Home Diet: resume previous diet Procedures Procedures Performed: Left Cataract Phacoemulsification With Intraocular Lens Implant Pending Studies Studies pending at discharge: no Medical Emergencies . Who to Call and When: Medical Emergencies: If at any time you feel your situation is an emergency, please call 911 immediately. . Non-Emergent Contact Non-Emergency issues call your: Turkey Egg Gatherer . . "Provider Documentation" section prepared by Michael Lynch. .
--- NOTE | 2017-12-16 10:08 | Anesthesia Progress Nt - [facility] ---
Anesthesia Post Op Note Date & Time Dec 16, 2017 at 10:08 Vital Signs Pain Intensity: 0 Vital Signs Past 12 Hours Date Time Temp Pulse Resp B/P (MAP) Pulse Ox O2 Delivery O2 Flow Rate FiO2 12/16/17 08:27 37.2 63 16 154/74 (100) 95 Room Air Notes Mental Status: alert / awake / arousable, participated in evaluation Pt Amnestic to Procedure: No Nausea / Vomiting: adequately controlled Pain: adequately controlled Airway Patency, RR, SpO2: stable & adequate BP & HR: stable & adequate Hydration State: stable & adequate Anesthetic Complications: no major complications apparent non distressing recall as discussed preop
[2017-12-16 10:24] VITALS: BP 197/84; PULSE 57; O2SAT 98
== END | disposition home or self-care (01) ==
LOC: X.SURG 07:41
PROVIDERS: ATTEND Ophthalmology
DX: E11.36 Type 2 diabetes mellitus with diabetic cataract (principal); H26.9 Unspecified cataract; I10 Essential (primary) hypertension; Z98.41 Cataract extraction status, right eye; G47.33 Obstructive sleep apnea (adult) (pediatric); Z85.3 Personal history of malignant neoplasm of breast; Z79.82 Long term (current) use of aspirin; Z79.899 Other long term (current) drug therapy; Z79.4 Long term (current) use of insulin; Z90.11 Acquired absence of right breast and nipple; Z88.8 Allergy status to other drugs, medicaments and biological substances; Z88.5 Allergy status to narcotic agent; Z83.3 Family history of diabetes mellitus; Z82.49 Family history of ischemic heart disease and other diseases of the circulatory system

== ENCOUNTER → 2018-01-13 | Day surgery (SDC) | payer BC ==
[2017-12-25 10:53] VITALS: Ht 167.6 cm; Wt 91.8 kg
[~2018-01-13] VITALS: Ht 167.6 cm; Wt 91.8 kg
[~2018-01-13] MED LIST changes: +CYCLOPENTOLATE HCL 1% OP SOLN PER DROP CHARGE OPR SCH; +GATIFLOXACIN OP SOLN PER DROP CHARGE OPR SCH; +KETOROLAC 0.5% OP SOLN PER DROP CHARGE OPR SCH; -ONDANSETRON INJ 2 MG/ML 2 ML VIAL IV PRN; -PHENYLEPHRINE HCL 10% OP SOLN PER DROP CHARGE OPL SCH; +PHENYLEPHRINE HCL 10% OP SOLN PER DROP CHARGE OPR SCH; +PHENYLEPHRINE HCL 2.5% OP SOLN PER DROP CHARGE OPR SCH; -PROPARACAINE 0.5% OP SOLN PER DROP CHARGE OPL SCH; +PROPARACAINE 0.5% OP SOLN PER DROP CHARGE OPR SCH; +TROPICAMIDE 1% OP SOLN PER DROP CHARGE OPR SCH
[2018-01-13] MEDS: PHENYLEPHRINE HCL 2.5% OP SOLN PER DROP CHARGE OPR SCH ×2 (07:25→07:30)
[2018-01-13] MEDS: TROPICAMIDE 1% OP SOLN PER DROP CHARGE OPR SCH ×2 (07:26→07:31)
[2018-01-13] MEDS: CYCLOPENTOLATE HCL 1% OP SOLN PER DROP CHARGE OPR SCH ×2 (07:27→07:32)
[2018-01-13] MEDS: KETOROLAC 0.5% OP SOLN PER DROP CHARGE OPR SCH ×2 (07:28→07:33)
[2018-01-13] MEDS: GATIFLOXACIN OP SOLN PER DROP CHARGE OPR SCH ×2 (07:29→07:43)
--- NOTE | 2018-01-13 08:47 | [facility] Operative Report ---
Operative Report Date of Service Jan 13, 2018. Operative Report 1. PREOPERATIVE DIAGNOSIS: Cataract of the right eye. 2. POSTOPERATIVE DIAGNOSIS: Same. 3. PROCEDURE: Phacoemulsification with intraocular lens implantation of the right eye. SURGEON: Dr. Michael Lynch. ANESTHESIA: Topical Lidocaine gel, 1% Non- Preserved intracameral Lidocaine, and monitored intravenous sedation. INDICATIONS FOR THE PROCEDURE: The patient is a 72 - year-old female with a history of cataract of the right eye causing significant visual impairment. The details of the proposed procedure were explained to the patient who asked appropriate questions and following discussion of all risks, benefits and alternatives agreed to have the procedure done. 4. OPERATION AND FINDINGS: DESCRIPTION OF PROCEDURE: After informed consent was obtained, the patient was brought to the Operating Room at the [facility]. The patient was placed in a supine position and then the right eye was prepped and draped in the usual sterile fashion for intraocular surgery. A drop of topical Lidocaine gel was placed in the operative eye. A wire lid speculum was then placed in the fornices. A corneal paracentesis was then created temporally. The Non-Preserved Lidocaine was then instilled into the anterior chamber. The anterior chamber was then pressurized with viscoelastic. A 2.0 mm clear corneal incision was then created temporally. A cystotome was inserted into the anterior chamber and used to create a tear in the anterior lens capsule. This capsular tear was then used to create a small flap and the flap was dragged in a counterclockwise direction in order to create a continuous curvilinear capsulorrhexis. Hydrodissection was accomplished with balanced salt solution. Phacoemulsification of the lens nucleus was then performed in a standard [id number] technique. The phaco time was 24 seconds with an average power of 11 %. The remaining cortical material was removed using irrigation aspiration. The capsular bag was then filled with viscoelastic. A Bausch [employer] Lomb MI60L +21.5 diopters lens was then loaded into the injector and injected into the capsular bag. The remaining viscoelastic was removed with the irrigation aspiration handpiece. The wound was hydrated and then checked and found to be watertight. The intraocular pressure was checked and found to be adequate. The wire lid speculum was removed and the patient's face was cleaned and dried. TobraDex ointment was placed in the inferior fornix. The patient was discharged to the Recovery Room having tolerated the procedure well. There were no complications. The patient will be seen tomorrow in the office for follow-up. I attest to the content of the Intraoperative Record and any orders documented therein. Any exceptions are noted below.
--- NOTE | 2018-01-13 08:48 | Discharge Instructions-SurgCtr ---
Discharge Instructions Date of Service Jan 13, 2018. Visit Reason for Visit: Cataract Right Eye Discharge Discharge Diagnosis / Problem: cataract Discharge Goals Goal(s): Improve function Medications Stopped Medications Name(s): metforamin last dose 01-09-18 Activity Recommendations Activity Limitations: per Instructions/Follow-up section Anesthesia . Post Anesthesia Instructions: If you have had General Anesthesia or IV Sedation: * Do not drive today. * Resume driving when surgeon permits. * Do not make important decisions or sign legal documents today. * Call surgeon for: 1. Temperature elevations greater than 101 degrees F. 2. Uncontrollable pain. 3. Excessive bleeding. 4. Persistent nausea and vomiting. 5. Medication intolerance (nausea, vomiting or rash). * For nausea and vomiting use only clear liquids such as: tea, soda, bouillon until nausea subsides, then gradually increase diet as tolerated. * If you have any concerns or questions, call your surgeon's office. If physician is unavailable and it is an emergency, call 911 or go to the nearest emergency room. . Diet Recommendations Home Diet: resume previous diet Procedures Procedures Performed: Right Cataract Phacoemulsification With Intraocular Lens Implant Pending Studies Studies pending at discharge: no Medical Emergencies . Who to Call and When: Medical Emergencies: If at any time you feel your situation is an emergency, please call 911 immediately. . Non-Emergent Contact Non-Emergency issues call your: Power Press Operator . . "Provider Documentation" section prepared by Michael Lynch. .
[2018-01-13 08:52] VITALS: BP 171/97; PULSE 72; TEMP 36.4; O2SAT 94
--- NOTE | 2018-01-13 09:37 | Anesthesia Progress Nt - [facility] ---
Anesthesia Post Op Note Date & Time Jan 13, 2018 at 09:37 Vital Signs Pain Intensity: 2 Vital Signs Past 12 Hours Date Time Temp Pulse Resp B/P (MAP) Pulse Ox O2 Delivery O2 Flow Rate FiO2 01/13/18 08:52 36.4 72 18 171/97 (121) 94 Room Air 01/13/18 07:08 37.0 74 20 144/77 (99) 94 Room Air Notes Mental Status: alert / awake / arousable, participated in evaluation Pt Amnestic to Procedure: Yes Nausea / Vomiting: adequately controlled Pain: adequately controlled Airway Patency, RR, SpO2: stable & adequate BP & HR: stable & adequate Hydration State: stable & adequate Anesthetic Complications: no major complications apparent
== END | disposition home or self-care (01) ==
LOC: X.SURG 06:41
PROVIDERS: ATTEND Ophthalmology
DX: E11.36 Type 2 diabetes mellitus with diabetic cataract (principal); H26.9 Unspecified cataract; G47.33 Obstructive sleep apnea (adult) (pediatric); I10 Essential (primary) hypertension; M19.90 Unspecified osteoarthritis, unspecified site; Z88.6 Allergy status to analgesic agent; Z98.41 Cataract extraction status, right eye; Z85.3 Personal history of malignant neoplasm of breast

== ENCOUNTER → 2018-01-26 | Outpatient (CLI) | payer BC ==
[~2018-01-26] MED LIST changes: -500ML BSS 0.3ML EPI 1:1000PF IRRIG ONE; -ACETAMINOPHEN 325 MG TAB PO PRN; -AMVISC PLUS 0.8ML SYRINGE INT OCU ONE; -ATROPINE SULFATE 0.1 MG/ML 5ML SYR IV PRN; -BSS FLUSH ONE; -CYCLOPENTOLATE HCL 1% OP SOLN PER DROP CHARGE OPR SCH; -EpHEDrine SULFATE INJ 50 MG/ML AMP IV PRN; -EpINEphrine INJ 1MG/ML AMP 1 MG/ML AMP ONE; -GATIFLOXACIN OP SOLN PER DROP CHARGE OPR SCH; -KETOROLAC 0.5% OP SOLN PER DROP CHARGE OPR SCH; -LACTATED RINGER'S 1000ML 500 ML IV SCH; -LIDOCAINE 3.5% OPH GEL PER APPLICATION CHARGE ONE; -LIDOCAINE HCL 1% MPF 2 ML VIAL ONE; -MIDAZOLAM HCL 1 MG/ML 2ML VIAL ONE; -PHENYLEPHRINE HCL 10% OP SOLN PER DROP CHARGE OPR SCH; -PHENYLEPHRINE HCL 2.5% OP SOLN PER DROP CHARGE OPR SCH; -POVIDONE-IODINE OP SOLN 30 ML BTL ONE; -PROPARACAINE 0.5% OP SOLN PER DROP CHARGE OPR SCH; -TOBRAMYCIN/DEXAMETHASONE OPH OINT PER APPLN CHARGE ONE; -TROPICAMIDE 1% OP SOLN PER DROP CHARGE OPR SCH
[2018-01-26 14:38] LABS: ALBUMIN 3.8 gm/dl (3.4-5.0); BLOOD UREA NITROGEN 21 mg/dl (7-18); CALCIUM 9.3 mg/dl (8.5-10.1); CARBON DIOXIDE 27 mmol/L (21-32); GLUCOSE 195 mg/dl (70-99); PHOSPHORUS 3.4 mg/dl (2.5-4.9); POTASSIUM 4.7 mmol/L (3.5-5.1); SODIUM 137 mmol/L (136-145)
== END | disposition home or self-care (01) ==
LOC: C.LABPBG 09:18
PROVIDERS: ATTEND Internal Medicine Nephrology
DX: N18.3 Chronic kidney disease, stage 3 (moderate) (principal)

== ENCOUNTER → 2018-06-09 | Outpatient (CLI) | payer BC ==
[~2018-06-09] MED LIST changes: -ANAS1TAB6 PO; +ANAS1TAB7 PO; +HYDR-5688 PO
[2018-06-09 13:02] LABS: BASO % 1.1 %; BASO ABS # 0.09 K/uL (0-0.2); EOS % 15.1 %; EOS ABS # 1.24 K/uL (0-0.5); HEMATOCRIT 37.7 % (37-47); HEMOGLOBIN 12.4 g/dL (12.0-16.0); IG# 0.01 K/uL (0.00-0.02); MEAN CELL VOLUME 88.9 fL (80-100); MEAN CORPUSCULAR HEMOGLOBIN 29.2 pg (25-34); MEAN CORPUSCULAR HGB CONC 32.9 g/dl (32-36); MEAN PLATELET VOLUME 10.3 fL (7.4-10.4); MONO % 8.4 %; MONO ABS # 0.69 K/uL (0.11-0.59); NEUT % 47.3 %; NEUT ABS # 3.89 K/uL (1.4-6.5); PLATELET COUNT 243 K/uL (130-400); RED CELL DISTRIBUTION WIDTH SD 42.1 fL (36.4-46.3); WHITE BLOOD COUNT 8.22 K/uL (4.8-10.8)
[2018-06-09 13:42] LABS: HEMOGLOBIN A1C 6.8 % (4.5-5.6)
[2018-06-09 13:57] LABS: ALBUMIN 3.8 gm/dl (3.4-5.0); ALKALINE PHOSPHATASE 78 U/L (45-117); ALT/SGPT 27 U/L (12-78); AST/SGOT 19 U/L (15-37); BLOOD UREA NITROGEN 22 mg/dl (7-18); CALCIUM 9.2 mg/dl (8.5-10.1); CARBON DIOXIDE 26 mmol/L (21-32); CHOLESTEROL 94 mg/dl (0-200); CREATININE 1.18 mg/dl (0.60-1.20); GLUCOSE 145 mg/dl (70-99); LDL CHOLESTEROL CALCULATED 35 mg/dl; POTASSIUM 4.9 mmol/L (3.5-5.1); SODIUM 138 mmol/L (136-145); TOTAL PROTEIN 7.2 gm/dl (6.4-8.2)
== END | disposition home or self-care (01) ==
LOC: C.LABPBG 08:08
PROVIDERS: ATTEND Internal Medicine
DX: E11.22 Type 2 diabetes mellitus with diabetic chronic kidney disease (principal); I12.9 Hypertensive chronic kidney disease with stage 1 through stage 4 chronic kidney disease, or unspecified chronic kidney disease; I25.10 Atherosclerotic heart disease of native coronary artery without angina pectoris; E78.5 Hyperlipidemia, unspecified; N18.3 Chronic kidney disease, stage 3 (moderate); E83.42 Hypomagnesemia; E55.9 Vitamin D deficiency, unspecified

== ENCOUNTER 2020-10-06 08:47 | Inpatient (IN) ==
[2020-10-06] MEDS ORDERED: VANCOMYCIN CONSULT ACTIVE PRN (09:21)
[2020-10-06] MEDS ORDERED: cefTRIAXone SODIUM 2,000 MG/70 ML BAG IV STA (09:21)
[2020-10-06] MEDS ORDERED: VANCOMYCIN HCL 1,750 MG in SODIUM CHLORIDE 0.9% 500 ML IV ONE (09:21)
[2020-10-06] MEDS ORDERED: SODIUM CHLORIDE 0.9% 1000ML 500 ML IV ONE (09:21)
--- NOTE | 2020-10-06 09:35 | Emergency Department Note ---
History of Present Illness General Chief complaint: Infection Stated complaint: TOE INFECTION Time Seen by Provider: 10/06/20 09:06 Source: patient Mode of arrival: ambulatory Limitations: no limitations History of Present Illness Provider complaint: Right great toe infection Onset (ago): day(s) 6 Location: foot and right Maximum Pain Intensity: 0 Current Pain Intensity: 0 This 75-year-old female patient presents to the emergency department today via private vehicle at the request of the wound clinic for evaluation of right toe infection. The patient states she has a chronic callus wound on the right foot overlying the distal first metatarsal. She states she then believes she probably developed a blister on the right great toe, distal to the chronic wound, then believes the blister broke on Friday while at the gym doing lunges. She states she did have some chills on Friday, but has not checked her tempera ture. She was seen at the wound clinic today for the right great toe wound which was debrided and cultured, then sent to the emergency department for IV antibiotics, imaging, and orthopedics consultation. Patient does have a history of chronic neuropathy and has no feeling in her foot. She denies any associated pain. There is some bloody and purulent discharge coming from the wound. No fever, red streaking up the leg, or significant edema. The patient is not having difficulty with ambulation. Home Medications Medication Instructions Recorded Confirmed Type cholecalciferol (vitamin D3) 50 4,000 units PO QAM cap 07/29/19 10/06/20 History mcg (2,000 unit) capsule cyanocobalamin (vitamin B-12) 2,500 mcg SL QAM tab 07/29/19 10/06/20 History 2,500 mcg sublingual tablet ferrous sulfate 325 mg (65 mg 325 mg PO BID tab 07/29/19 10/06/20 History iron) tablet atorvastatin 40 mg tablet 40 mg PO HS #90 tab 11/11/19 10/06/20 Rx metformin 1,000 mg tablet 1,000 mg PO BID #180 tab 11/16/19 10/06/20 Rx albuterol sulfate 90 mcg/actuation 1 puffs INH Q6H PRN #8.5 gm 12/14/19 10/06/20 Rx aerosol inhaler inhalational spacing device #1 ea 12/14/19 06/22/20 Rx blood sugar diagnostic #300 ea 04/20/20 06/22/20 Rx anastrozole 1 mg PO QAM 06/21/20 10/06/20 History aspirin [Aspirin Low Dose] 81 mg PO QAM 06/21/20 10/06/20 History calcium carbonate 600 mg PO QAM 06/21/20 10/06/20 History sitagliptin 100 mg tablet 100 mg PO QAM tab 06/22/20 10/06/20 History metoprolol tartrate 25 mg tablet 25 mg PO BID #180 tab 06/29/20 10/06/20 Rx repaglinide 1 mg tablet 1 mg PO TID #270 tab 07/06/20 10/06/20 Rx clotrimazole-betamethasone 1 1 applic TOP BID PRN #45 g 08/01/20 10/06/20 Rx %-0.05 % topical cream acetaminophen [Tylenol Extra 1,500 mg PO Q6H PRN 10/06/20 10/06/20 History Strength] escitalopram oxalate 10 mg PO QAM 10/06/20 10/06/20 History irbesartan 300 mg PO QAM 10/06/20 10/06/20 History montelukast [Singulair] 10 mg PO Q OTHER DAY PRN 10/06/20 10/06/20 History Allergies Allergy/AdvReac Type Severity Reaction Status Date / Time benzonatate Allergy Unknown PATIENT IS Verified 10/06/20 10:20 UNAWARE OF REACTION WAS PLACED ON CHART propoxyphene Allergy Unknown PATIENT IS Verified 10/06/20 10:20 UNAWARE OF REACTION WAS PLACED ON CHART codeine AdvReac Intermediate NAUSEA/VOMI Verified 10/06/20 10:20 TING Past Med/Surg History Medical History Anemia Breast cancer CAD (coronary artery disease) CKD (chronic kidney disease) stage 3, GFR 30-59 ml/min COPD with asthma Diabetic peripheral neuropathy associated with type 2 diabetes mellitus Dyslipidemia History of asthma History of cough History of diabetic ulcer of foot History of duodenal ulcer History of edema History of impacted cerumen History of psoriasis HTN (hypertension) Non-occlusive coronary artery disease Sleep apnea Type 2 diabetes mellitus Surgical History H/O mastectomy History of colonoscopy History of esophagogastroduodenoscopy History of removal of Port-a-Cath central IV port placement--Dr. Sorto 01/08/2016 removal-04/07/18 S/P foot surgery Family History Unknown Congestive heart failure Mother Congestive heart failure Sister Hypertension Diabetes Hyperlipidemia Social History Smoking Status: Former smoker Second Hand Exposure: No; Hx Alcohol Use: No Hx Substance Use: No Preferred Language: Khmer Communication Ability: Effective Visual Impairment: Limited Hearing Ability: Normal Survival Equipment Repairer Required: No Beliefs That Will Affect Care: None marital status: Current Living Situation: Alone current occupational status: retired Feels Safe at Home: Yes Childhood Exposure to Second-Hand Smoke: Yes caffeine: Yes Dental Care, Regularly: Yes Physical Activity Frequency: 3-4 Times per Week Seatbelt Use: always Sunscreen Use: No Assistive Devices: Glasses Review of Systems A total of 10 systems reviewed and were otherwise negative Physical Exam Vital Signs Vital Signs - 24 hr 10/06/20 09:02 10/06/20 09:24 10/06/20 10:48 Temperature 37.0 C Temperature Source Oral Pulse Rate 77 Pulse Rate [Apical] 84 Respiratory Rate 20 18 Blood Pressure 138/78 Blood Pressure [Left Arm] 151/73 H Blood Pressure Mean 98 Blood Pressure Mean [Left Arm] 99 Pulse Oximetry 95 95 96 Oxygen Delivery Method Room Air Room Air Room Air Sepsis Recent Fever Within 48 Hours No Sepsis New/Unexplained Change in Mental Status N/A Sepsis Action Taken by Nursing No Action Required VITALS: Vitals are noted on the nurse's note and reviewed by myself. Patient mildly hypertensive, but afebrile. O2 saturation 95%. Pulse 77. GENERAL: This is a 75-year-old white female, in no acute distress, nondiaphoretic, well-developed well-nourished. SKIN: Right great toe tunneling wound approximately 2.5 x 1 cm. Wound base is erythematous with bloody purulent discharge noted. The entire toe is erythematous and edematous. There is a callused wound on the plantar aspect of the right foot, just proximal to the infected wound which does not appear to be healed over nicely. The skin was otherwise without rashes, erythema, edema, or bruising. There is no tenting of the skin. Capillary refill less than 2 seconds. HEAD: Normocephalic atraumatic. EYES: Conjunctivae without injection, sclerae without icterus. NECK: Supple without nuchal rigidity. No lymphadenopathy. Cervical spine is nontender. No JVD. HEART: Regular rate and rhythm without murmurs gallops or rubs. LUNGS: Clear to auscultation bilaterally without wheezes, rales or rhonchi. No retractions or accessory muscle use. MUSCULOSKELETAL: No muscle atrophy, erythema, or edema except as noted. Full range of motion without joint tenderness in all extremities. No tenderness to palpation. Normal gait. Strength 5/5 throughout. NEURO: Patient was alert and oriented to person place and time. Decreased se nsation in the bilateral feet due to chronic neuropathy - pt. notes is baseline. No focal neurological deficits. Course Course The patient was seen and evaluated as above. An order was placed for continuous cardiac monitoring. The monitor shows a normal sinus rhythm at a rate of 77 bpm. IV access obtained, labs drawn. Patient medicated with IV fluids, Rocephin, vancomycin. Imaging performed and reviewed by myself and radiologist as noted. Labs reviewed by myself. I discussed the findings with the patient at bedside. I did recommend admission for possible osteomyelitis due to the tunneling of the wound, location, and history. Patient was agreeable. I discussed the case with the recreation manager. I discussed the case with Dr. Sifuentes, hospitalist physician. He did agree to see and evaluate the patient. Please see hospitalist dictation regarding ongoing management care of this patient. Administered Medications Discontinued Medications Sodium Chloride (Nss 1000ml) 500 mls @ 999 mls/hr IV .Q31M ONE Stop: 10/06/20 09:51 Last Infusion: 10/06/20 10:35 Dose: 0 mls/hr Documented by: [id number] Admin: 10/06/20 10:03 Dose: 999 mls/hr Documented by: [id number] Vancomycin HCl 1,750 mg/ (Sodium Chloride) 535 mls @ 200 mls/hr IV NOW ONE Stop: 10/06/20 12:01 Last Infusion: 10/06/20 13:32 Dose: 0 mls/hr Documented by: [id number] Admin: 10/06/20 10:45 Dose: 200 mls/hr Documented by: [id number] Ceftriaxone Sodium (Rocephin) 2,000 mg in 70 mls @ 140 mls/hr IV NOW STA Stop: 10/06/20 09:50 Last Infusion: 10/06/20 10:34 Dose: 0 mls/hr Documented by: [id number] Admin: 10/06/20 10:03 Dose: 140 mls/hr Documented by: [id number] Medical Decision Making Differential Diagnosis Foreign body, fracture, dislocation, joint compromise, infection, osteomyelitis, soft tissue injury, tendon injury, vascular compromise, compartment syndrome, as well as other pathologies. Medical Records Attestation: I reviewed the patient's medical records. Home Medications Current Medication List: was personally reviewed by me Laboratory Data Attestation: I reviewed the patient's lab results. No leukocytosis, concerning anemia, thrombocytopenia. Renal, hepatic function, and electrolytes without significant abnormality. ESR elevated at 58. Coags normal. Lactate elevated at 2.1. C-reactive protein elevated at 11.30. Blood cultures pending. Wound culture pending, per wound clinic. Result diagrams: 10/06/20 09:38 10/06/20 09:38 Lab Results 10/06/20 10/06/20 10/06/20 Range/Units 09:30 09:38 09:38 WBC 9.92 (4.8-10.8) K/uL RBC 3.98 L (4.2-5.4) M/uL Hgb 11.5 L (12.0-16.0) g/dL Hct 34.6 L (37-47) % MCV 86.9 (80-100) fL MCH 28.9 (25-34) pg MCHC 33.2 (32-36) g/dL RDW Std Deviation 42.0 (36.4-46.3) fL RDW Coeff of Eagle 13.0 (11.5-14.5) % Plt Count 324 (130-400) K/uL MPV 9.1 (7.4-10.4) fL Immature Gran % (Auto) 0.2 % Neut % (Auto) 72.8 % Lymph % (Auto) 16.0 % Mills % (Auto) 6.1 % Eos % (Auto) 4.5 % Baso % (Auto) 0.4 % Neut # (Auto) 7.21 H (1.4-6.5) K/uL Lymph # (Auto) 1.59 (1.2-3.4) K/uL Mills # (Auto) 0.61 H (0.11-0.59) K/uL Eos # (Auto) 0.45 (0-0.5) K/uL Baso # (Auto) 0.04 (0-0.2) K/uL Immature Gran # (Auto) 0.02 (0.00-0.02) K/uL ESR 58 H (0-21) mm/hr PT (9.0-12.0) Seconds INR (0.9-1.1) APTT (21.0-31.0) Seconds PTT Ratio Sodium (136-145) mmol/L Potassium (3.5-5.1) mmol/L Chloride (98-107) mmol/L Carbon Dioxide (21-32) mmol/L Anion Gap (3-11) BUN (7-18) mg/dl Creatinine (0.6-1.2) mg/dl Est Cr Clr Drug Dosing ml/min Est GFR ( Amer) Est GFR (Non-Af Amer) BUN/Creatinine Ratio (10-20) Glucose (70-99) mg/dl Estimat Average Glucose 160 mg/dl Hemoglobin A1c 7.2 H (4.5-5.6) % Lactate (0.4-2.0) mmol/L Calcium (8.5-10.1) mg/dl Total Bilirubin (0.2-1) mg/dl AST (15-37) U/L ALT (12-78) U/L Alkaline Phosphatase (45-117) U/L C-Reactive Protein (0-0.29) mg/dl Total Protein (6.4-8.2) gm/dl Albumin (3.4-5.0) gm/dl Globulin (2.5-4.0) gm/dl Albumin/Globulin Ratio (0.9-2) Hepatitis C Ab Screen (Neg) 10/06/20 10/06/20 10/06/20 Range/Units 09:38 09:38 09:39 WBC (4.8-10.8) K/uL RBC (4.2-5.4) M/uL Hgb (12.0-16.0) g/dL Hct (37-47) % MCV (80-100) fL MCH (25-34) pg MCHC (32-36) g/dL RDW Std Deviation (36.4-46.3) fL RDW Coeff of Eagle (11.5-14.5) % Plt Count (130-400) K/uL MPV (7.4-10.4) fL Immature Gran % (Auto) % Neut % (Auto) % Lymph % (Auto) % Mills % (Auto) % Eos % (Auto) % Baso % (Auto) % Neut # (Auto) (1.4-6.5) K/uL Lymph # (Auto) (1.2-3.4) K/uL Mills # (Auto) (0.11-0.59) K/uL Eos # (Auto) (0-0.5) K/uL Baso # (Auto) (0-0.2) K/uL Immature Gran # (Auto) (0.00-0.02) K/uL ESR (0-21) mm/hr PT 10.2 (9.0-12.0) Seconds INR 1.0 (0.9-1.1) APTT 27.9 (21.0-31.0) Seconds PTT Ratio 1.0 Sodium 135 L (136-145) mmol/L Potassium 4.4 (3.5-5.1) mmol/L Chloride 102 (98-107) mmol/L Carbon Dioxide 26 (21-32) mmol/L Anion Gap 7.0 (3-11) BUN 36 H (7-18) mg/dl Creatinine 1.34 H (0.6-1.2) mg/dl Est Cr Clr Drug Dosing 41.4 ml/min Est GFR ( Amer) 44.8 Est GFR (Non-Af Amer) 38.7 BUN/Creatinine Ratio 26.9 H (10-20) Glucose 160 H (70-99) mg/dl Estimat Average Glucose mg/dl Hemoglobin A1c (4.5-5.6) % Lactate 2.1 H* (0.4-2.0) mmol/L Calcium 9.4 (8.5-10.1) mg/dl Total Bilirubin 0.4 (0.2-1) mg/dl AST 14 L (15-37) U/L ALT 21 (12-78) U/L Alkaline Phosphatase 100 (45-117) U/L C-Reactive Protein 11.30 H (0-0.29) mg/dl Total Protein 7.5 (6.4-8.2) gm/dl Albumin 3.0 L (3.4-5.0) gm/dl Globulin 4.5 H (2.5-4.0) gm/dl Albumin/Globulin Ratio 0.7 L (0.9-2) Hepatitis C Ab Screen (Neg) 10/06/20 Range/Units 09:43 WBC (4.8-10.8) K/uL RBC (4.2-5.4) M/uL Hgb (12.0-16.0) g/dL Hct (37-47) % MCV (80-100) fL MCH (25-34) pg MCHC (32-36) g/dL RDW Std Deviation (36.4-46.3) fL RDW Coeff of Eagle (11.5-14.5) % Plt Count (130-400) K/uL MPV (7.4-10.4) fL Immature Gran % (Auto) % Neut % (Auto) % Lymph % (Auto) % Mills % (Auto) % Eos % (Auto) % Baso % (Auto) % Neut # (Auto) (1.4-6.5) K/uL Lymph # (Auto) (1.2-3.4) K/uL Mills # (Auto) (0.11-0.59) K/uL Eos # (Auto) (0-0.5) K/uL Baso # (Auto) (0-0.2) K/uL Immature Gran # (Auto) (0.00-0.02) K/uL ESR (0-21) mm/hr PT (9.0-12.0) Seconds INR (0.9-1.1) APTT (21.0-31.0) Seconds PTT Ratio Sodium (136-145) mmol/L Potassium (3.5-5.1) mmol/L Chloride (98-107) mmol/L Carbon Dioxide (21-32) mmol/L Anion Gap (3-11) BUN (7-18) mg/dl Creatinine (0.6-1.2) mg/dl Est Cr Clr Drug Dosing ml/min Est GFR ( Amer) Est GFR (Non-Af Amer) BUN/Creatinine Ratio (10-20) Glucose (70-99) mg/dl Estimat Average Glucose mg/dl Hemoglobin A1c (4.5-5.6) % Lactate (0.4-2.0) mmol/L Calcium (8.5-10.1) mg/dl Total Bilirubin (0.2-1) mg/dl AST (15-37) U/L ALT (12-78) U/L Alkaline Phosphatase (45-117) U/L C-Reactive Protein (0-0.29) mg/dl Total Protein (6.4-8.2) gm/dl Albumin (3.4-5.0) gm/dl Globulin (2.5-4.0) gm/dl Albumin/Globulin Ratio (0.9-2) Hepatitis C Ab Screen Neg (Neg) Imaging Data Radiologist's Impression: RIGHT FOOT 3 VIEWS CLINICAL HISTORY: First toe wound. FINDINGS: 3 views of the right foot are compared to study dated 06/21/2020. The skeletal structures are osteopenic. No fracture is seen. Moderate osteoarthritic change is seen at the tarsometatarsal joints. Mild to moderate arthritic change is also seen at the first metatarsophalangeal joint. There is no bony erosion or periostitis. There are small dorsal and large plantar calcaneal enthesophytes, with degenerative spurring noted along the dorsal aspect of the tarsal bones. Soft tissue edema is seen in the forefoot, greatest in the first toe. No subcuta neous gas or radiodense foreign body is identified. There is advanced atherosclerotic calcification of the regional arteries. Soft tissue calcifications are noted in the posterior aspect of the distal calf. IMPRESSION: 1. Soft tissue swelling with no acute bony abnormality identified. 2. Osteopenia, degenerative change, and heel spurs as above. Electronically signed by: Mal Burkett M.D. 10/06/2020 10:12 AM Blood Pressure Blood Pressure Findings: Elevated blood pressure Blood Pressure Disposition: elevated BP felt to be situational MDM Narrative This 75-year-old female patient presents to the emergency department today for evaluation of a right toe infection. The patient believes the infection began on Friday when she developed chills. She then believes the blister opened up while exercising at the gym on Friday. She has not had chills or fever since Friday, though this is a concerning history with clear evidence of tunneling wound on the right foot. Patient does have a history of diabetic neuropathy and has no sensation in the distal portion of her foot, so has not noticed any pain. Work-up here in the ED without leukocytosis. Patient is mildly anemic. Lactic acid mildly elevated at 2.1. Inflammatory markers elevated. Plain film imaging of the right foot shows soft tissue swelling with no acute bony abnormality. No clear evidence of osteomyelitis, subcutaneous gas, or radiodense foreign body. Given the history and exam, however, I am concerned for possible developing osteomyelitis. The patient will be admitted to the hospitalist service. Wound culture was obtained by the wound clinic as an outpatient. Blood cultures pending. Medicine will consult orthopedics. Patient was agreeable with treatment plan. Please see hospitalist dictation regarding ongoing management care of this patient. The chart was completed utilizing [employer] Speech voice recognition software. Grammatical errors, random word insertions, pronoun errors, and incomplete sentences are an occasional consequence of this system due to software limitations, ambient noise, and hardware issues. Any formal questions or concerns about the content, text, or information contained within the body of this dictation should be directly addressed to the provider for clarification. Impression & Plan Diabetic ulcer of right great toe, Diabetic peripheral neuropathy associated with type 2 diabetes mellitus, Loss of sensation Discharge Plan Visit Data Chief Complaint: Infection Stated Complaint: TOE INFECTION ED Provider: Herson Patel ED Midlevel Provider: Ciara Gonzalez Discharge Problem: Diabetic ulcer of right great toe, Diabetic peripheral neuropathy associated with type 2 diabetes mellitus, Loss of sensation Patient Disposition: Admitted As Inpatient Discharge Instructions Interventions: ED Discharge Assessment Last Done: 10/06/20 13:24
[2020-10-06 09:49] LABS: Basophils # (auto) 0.04 K/uL (0-0.2); Basophils % (auto) 0.4 %; Eosinophils # (auto) 0.45 K/uL (0-0.5); Eosinophils % (auto) 4.5 %; Hematocrit (blood only) 34.6 % (37-47); Hemoglobin 11.5 g/dL (12.0-16.0); Immature Granulocytes # (auto) 0.02 K/uL (0.00-0.02); Immature Granulocytes % (auto) 0.2 %; Lymphocytes # (auto) 1.59 K/uL (1.2-3.4); Mean Corpuscular Hemoglobin 28.9 pg (25-34); Mean Corpuscular Hgb Conc 33.2 g/dL (32-36); Mean Corpuscular Volume 86.9 fL (80-100); Mean Platelet Volume 9.1 fL (7.4-10.4); Monocytes # (auto) 0.61 K/uL (0.11-0.59); Monocytes % (auto) 6.1 %; Neutrophils # (auto) 7.21 K/uL (1.4-6.5); Neutrophils % (auto) 72.8 %; Platelet Count 324 K/uL (130-400); Red Blood Count 3.98 M/uL (4.2-5.4); White Blood Count 9.92 K/uL (4.8-10.8)
[2020-10-06 10:13] LABS: BUN Creatinine Ratio 26.9 (10-20); Calcium 9.4 mg/dl (8.5-10.1); Creatinine Clr Calc Pharmacy 41.4 ml/min; Est GFR (African American) 44.8; Est GFR (Non-African American) 38.7; Potassium 4.4 mmol/L (3.5-5.1)
--- NOTE | 2020-10-06 10:13 | XRay Report ---
RIGHT FOOT 3 VIEWS CLINICAL HISTORY: First toe wound. FINDINGS: 3 views of the right foot are compared to study dated 06/21/2020. The skeletal structures ar e osteopenic. No fracture is seen. Moderate osteoarthritic change is seen at the tarsometatarsal join ts. Mild to moderate arthritic change is also seen at the first metatarsophalangeal joint. There is n o bony erosion or periostitis. There are small dorsal and large plantar calcaneal enthesophytes, with degenerative spurring noted along the dorsal aspect of the tarsal bones. Soft tissue edema is seen i n the forefoot, greatest in the first toe. No subcutaneous gas or radiodense foreign body is identifi ed. There is advanced atherosclerotic calcification of the regional arteries. Soft tissue calcificati ons are noted in the posterior aspect of the distal calf. IMPRESSION: 1. Soft tissue swelling with no acute bony abnormality identified. 2. Osteopenia, degenerative change, and heel spurs as above. Electronically signed by: Mal Burkett M.D. 10/06/2020 10:12 AM
[2020-10-06 10:14] LABS: Partial Thromboplastin Time 27.9 Seconds (21.0-31.0); Prothrombin Time 10.2 Seconds (9.0-12.0)
[2020-10-06 10:19] LABS: Albumin Globulin Ratio 0.7 (0.9-2); Bilirubin,Total 0.4 mg/dl (0.2-1); C Reactive Protein 11.3 mg/dl (0-0.29); Globulin 4.5 gm/dl (2.5-4.0); Total Protein 7.5 gm/dl (6.4-8.2)
--- NOTE | 2020-10-06 11:58 | History & Physical Report ---
Date of Service October 06, 2020 Assessment & Plan (1) Diabetic ulcer of right great toe: concerning for deeper infection - Xray OK but with tunneling and ??duration of ulcer - MRI and ortho consult -not septic, not showing concern on rapid progression, and hasn't been on abx for >3 months so not overwhelming risk for MRSA/pseudomonas (certainly has risk for both, but outcomes data would support a narrower approach) - will start w ancef, follow cultures (ordered here to be safe as i don't have record of culture sent by wound clinic - but my order was after starting abx, seems that wound was cultured at wound clinic as well - which will be more helpful and clinical progress, and escalate if need arises) -wound care -CRP in AM (2) Chills: concerning given chills, malaise, lightheaded, nausaeated now knowing status of foot, reassurring that it happened friday and not since blood cultures have been sent. follow (3) Type 2 diabetes mellitus: educated - she expressed total unawareness of relationship between DM and her foot ulcer. taught "high sugars clog arteries" as well as how heavily lifestyle impacts control of DM2. encouraged to check postprandial glucoses once she is home so that she can see impact of what she eats on her metabolism and DM control. admits she loves carbs. A1c, continue home meds (if any shifting in renal function can consider holding orals but for now would like to continue since she is used to them, there is no compelling need to stop at this time, at it will allow for better approximation of home control regimen); supplemental insulin as needed (4) CKD (chronic kidney disease) stage 3, GFR 30-59 ml/min: chronic, appearing stable (5) CAD (coronary artery disease): chronic, appears stable, continue home meds (6) COPD with asthma: no complaints of dyspnea, continue prn albuterol (7) Dyslipidemia: continue statin (8) Sleep apnea: outpatient management (9) DVT prophylaxis: had DVT in june as well - off eliquis for this now. lovenox DVT proph at this time (10) Discharge planning issues: full code for now - she notes that she's never really thought about issues like that before; discussed that she would not need to have an immediate answer but that it would be a good phase of life to start to discuss end of life wishes/etc admit med/surg [facility] hospitalists, ortho consult History of Present Illness Chief Complaint: toe drainage, sent by wound clinic Primary Care Provider: Abimael Vargas MD very pleasant 75F sent by wound clinic friday (5 days ago) had chills, felt lightheaded, nauseated. at that time only thing she knew was going on with her toe was a blister - not really any new or worse findigs she was aware of, no real pain - although she has bad enough neuropathy that she really doesn't feel it much. that lasted a while then went away - no f/c/s since, no lightheaded/dizzy since, nausea resolved. friday at [place] sneakers doing lunges and toe blister opened - blood and other drainage - and kept draining. still no f/c/s, again no pain but she notes not a lot of sensation. went to wound clinic today - sent to ER for ongoing eval/management/admission. has not been on abx for this recently - last course of abx was cipro in june. Allergies Allergy/AdvReac Type Severity Reaction Status Date / Time benzonatate Allergy Unknown PATIENT IS Verified 10/06/20 10:20 UNAWARE OF REACTION WAS PLACED ON CHART propoxyphene Allergy Unknown PATIENT IS Verified 10/06/20 10:20 UNAWARE OF REACTION WAS PLACED ON CHART codeine AdvReac Intermediate NAUSEA/VOMI Verified 10/06/20 10:20 TING Home Medications Medication Instructions Recorded Confirmed Type cholecalciferol (vitamin D3) 50 4,000 units PO QAM cap 07/29/19 10/06/20 History mcg (2,000 unit) capsule cyanocobalamin (vitamin B-12) 2,500 mcg SL QAM tab 07/29/19 10/06/20 History 2,500 mcg sublingual tablet ferrous sulfate 325 mg (65 mg 325 mg PO BID tab 07/29/19 10/06/20 History iron) tablet atorvastatin 40 mg tablet 40 mg PO HS #90 tab 11/11/19 10/06/20 Rx metformin 1,000 mg tablet 1,000 mg PO BID #180 tab 11/16/19 10/06/20 Rx albuterol sulfate 90 mcg/actuation 1 puffs INH Q6H PRN #8.5 gm 12/14/19 10/06/20 Rx aerosol inhaler inhalational spacing device #1 ea 12/14/19 06/22/20 Rx blood sugar diagnostic #300 ea 04/20/20 06/22/20 Rx anastrozole 1 mg PO QAM 06/21/20 10/06/20 History aspirin [Aspirin Low Dose] 81 mg PO QAM 06/21/20 10/06/20 History calcium carbonate 600 mg PO QAM 06/21/20 10/06/20 History sitagliptin 100 mg tablet 100 mg PO QAM tab 06/22/20 10/06/20 History metoprolol tartrate 25 mg tablet 25 mg PO BID #180 tab 06/29/20 10/06/20 Rx repaglinide 1 mg tablet 1 mg PO TID #270 tab 07/06/20 10/06/20 Rx clotrimazole-betamethasone 1 1 applic TOP BID PRN #45 g 08/01/20 10/06/20 Rx %-0.05 % topical cream acetaminophen [Tylenol Extra 1,500 mg PO Q6H PRN 10/06/20 10/06/20 History Strength] escitalopram oxalate 10 mg PO QAM 10/06/20 10/06/20 History irbesartan 300 mg PO QAM 10/06/20 10/06/20 History montelukast [Singulair] 10 mg PO Q OTHER DAY PRN 10/06/20 10/06/20 History Past Med/Surg History Medical History (Updated 10/06/20 @ 11:49 by Hung Sifuentes DO) Anemia Breast cancer CAD (coronary artery disease) CKD (chronic kidney disease) stage 3, GFR 30-59 ml/min COPD with asthma Diabetic peripheral neuropathy associated with type 2 diabetes mellitus Dyslipidemia History of asthma History of cough History of diabetic ulcer of foot History of duodenal ulcer History of edema History of impacted cerumen History of psoriasis HTN (hypertension) Non-occlusive coronary artery disease Sleep apnea Type 2 diabetes mellitus Surgical History H/O mastectomy History of colonoscopy History of esophagogastroduodenoscopy History of removal of Port-a-Cath central IV port placement--Dr. Sorto 01/08/2016 removal-04/07/18 S/P foot surgery Family History Unknown Congestive heart failure Mother Congestive heart failure Sister Hypertension Diabetes Hyperlipidemia Social History Smoking Status: Never smoker Hx Alcohol Use: Yes Alcohol type: wine Alcohol Intake Frequency Comment: twice a year Hx Substance Use: No Preferred Language: Gambian Communication Ability: Effective Visual Impairment: Limited Hearing Ability: Normal Barrel Inspector Tight Required: No marital status: Current Living Situation: Alone current occupational status: retired Feels Safe at Home: Yes Childhood Exposure to Second-Hand Smoke: Yes caffeine: Yes Dental Care, Regularly: Yes Physical Activity Frequency: 3-4 Times per Week Seatbelt Use: always Sunscreen Use: No Review of Systems Review of Systems: All systems reviewed & are unremarkable except as noted in HPI & below Physical Exam Physical Exam: gen aaox3 pleasant nad heent nc at mmm neck full AROM no noted problems cardio reg no r/m/g lungs cta b/l no r/r/w good effort no conversational dyspnea no accessory muscles abd soft nd nt no masses, no noted organomegaly, no guarding/rebound/rigidity ext no c/c/e. see msk for foot. no calf tenderness msk - R great toe plantar surface macerated ulcer with areas that appear tunneling deep (can't see depth) as well as broader more superficial areas of ulceration. no tracking erythema going up toe/foot/surrounding skin, but (+) exudate. scabbed lesion on 1st MP joint plantar surface as well skin - as above, otherwise no other noted rashes/pallor/icterus neuro - seems to have diminished sensation b/l LE no other noted sensory or motor deficits, cn 2-12 grossly intact mental - good recent and remote recall normal mood and affect, good judgement and insight Results & Data Results & Data ([facility]) Vital Signs (Past 12 Hours) Vital Signs see Temp Pulse Pulse Resp BP BP Pulse Ox 10/06/20 10:48 84 18 151/73 H 96 10/06/20 09:24 95 10/06/20 09:02 98.6 F 77 20 138/78 95 Code Status & VTE Plan VTE Prophylaxis Plan VTE Prophylaxis will be ordered: Yes PG Care Time/CCT Total # of Minutes Spent Total Time Spent with Patient: Total time spent is greater than 50% in coordination of care (as documented) at patient's floor/unit and/or counseling patient: Coding Level of Care Code 70558 Initial Inpt Care Lvl 3 Diagnoses Diabetic ulcer of right great toe E11.621; L97.519 Chills R68.83 Type 2 diabetes mellitus E11.9 CKD (chronic kidney disease) stage 3, GFR 30-59 ml/min N18.3 CAD (coronary artery disease) I25.10 COPD with asthma J44.9 Dyslipidemia E78.5 Sleep apnea G47.30 DVT prophylaxis Z29.9 Discharge planning issues Z02.9
[2020-10-06] MEDS ORDERED: ALUMINUM/MAGNESIUM SUSP 30 ML UDC PO PRN (14:04)
[2020-10-06] MEDS ORDERED: MAGNESIUM HYDROXIDE SUSP 30 ML UDC PO PRN (14:04)
[2020-10-06] MEDS ORDERED: POLYETHYLENE (MIRALAX) 17 GM PACK PO PRN (14:04)
[2020-10-06] MEDS ORDERED: CLOTRIMAZOLE/BETAMETHASONE CR 15 GM TUBE EXT PRN (14:04)
[2020-10-06] MEDS ORDERED: ALBUTEROL HFA 8 GM INHALER INH PRN (14:04)
[2020-10-06] MEDS ORDERED: ONDANSETRON INJ 2 MG/ML 2 ML VIAL IV PRN (14:04)
[2020-10-06] MEDS ORDERED: MONTELUKAST SODIUM 10 MG TABLET PO PRN (14:04)
[2020-10-06] MEDS ORDERED: CARBOHYDRATES FOR HYPOGLYCEMIA PO PRN (14:15)
[2020-10-06] MEDS ORDERED: GLUCAGON FOR INJ 1 MG VIAL IM PRN (14:15)
[2020-10-06] MEDS ORDERED: GLUCOSE 10 TABS/TUBE PO PRN (14:15)
[2020-10-06] MEDS ORDERED: DEXTROSE 50% 50 ML SYRINGE IV PRN (14:15)
[2020-10-06] MEDS ORDERED: GLUCOSE 40% GEL 15 GM TUBE PO PRN (14:15)
[2020-10-06 14:31] LABS: Estimated Average Glucose 160 mg/dl; Hemoglobin A1C 7.2 % (4.5-5.6)
[2020-10-06] MEDS: ceFAZolin 1000MG 1,000 MG/7.5 ML SYR IV SCH (15:46)
--- NOTE | 2020-10-06 16:38 | History & Physical Report ---
Date of Service October 06, 2020 Assessment & Plan (1) Diabetic ulcer of right great toe: An MRI of the right foot has been ordered. We will wait and see what the MRI shows. If there is a large abscess and may require I&D, however without a large abscess I do not think that a surgical debridement would be necessary. As long as we can get this under control with wound care and IV antibiotics we may be able to get the ulcerations on the toe to heel. However, I did mention briefly that this may lead to a toe amputation and she seemed very surprised to hear that. I told her that we will do everything we can to save the toe. Present on Admission?: Yes Admission and Anticipated Discharge Date Admission Date: October 06, 2020 History of Present Illness Chief Complaint: Diabetic ulcer of the right great toe Primary Care Provider: Abimael Vargas MD Leila is a pleasant 75-year-old female who is been dealing with a weeklong history of increasing right great toe swelling and erythema. She noticed an ulceration on the plantar aspect of the great toe. She has been going to wound care. Wound care was concerned that she may need IV antibiotics and she was admitted to [facility]. Orthopedics was consulted to evaluate and treat. Allergies Allergy/AdvReac Type Severity Reaction Status Date / Time benzonatate Allergy Unknown PATIENT IS Verified 10/06/20 10:20 UNAWARE OF REACTION WAS PLACED ON CHART propoxyphene Allergy Unknown PATIENT IS Verified 10/06/20 10:20 UNAWARE OF REACTION WAS PLACED ON CHART codeine AdvReac Intermediate NAUSEA/VOMI Verified 10/06/20 10:20 TING Home Medications Medication Instructions Recorded Confirmed Type cholecalciferol (vitamin D3) 50 4,000 units PO QAM cap 07/29/19 10/06/20 History mcg (2,000 unit) capsule cyanocobalamin (vitamin B-12) 2,500 mcg SL QAM tab 07/29/19 10/06/20 History 2,500 mcg sublingual tablet ferrous sulfate 325 mg (65 mg 325 mg PO BID tab 07/29/19 10/06/20 History iron) tablet atorvastatin 40 mg tablet 40 mg PO HS #90 tab 11/11/19 10/06/20 Rx metformin 1,000 mg tablet 1,000 mg PO BID #180 tab 11/16/19 10/06/20 Rx albuterol sulfate 90 mcg/actuation 1 puffs INH Q6H PRN #8.5 gm 12/14/19 10/06/20 Rx aerosol inhaler inhalational spacing device #1 ea 12/14/19 06/22/20 Rx blood sugar diagnostic #300 ea 04/20/20 06/22/20 Rx anastrozole 1 mg PO QAM 06/21/20 10/06/20 History aspirin [Aspirin Low Dose] 81 mg PO QAM 06/21/20 10/06/20 History calcium carbonate 600 mg PO QAM 06/21/20 10/06/20 History sitagliptin 100 mg tablet 100 mg PO QAM tab 06/22/20 10/06/20 History metoprolol tartrate 25 mg tablet 25 mg PO BID #180 tab 06/29/20 10/06/20 Rx repaglinide 1 mg tablet 1 mg PO TID #270 tab 07/06/20 10/06/20 Rx clotrimazole-betamethasone 1 1 applic TOP BID PRN #45 g 08/01/20 10/06/20 Rx %-0.05 % topical cream acetaminophen [Tylenol Extra 1,500 mg PO Q6H PRN 10/06/20 10/06/20 History Strength] escitalopram oxalate 10 mg PO QAM 10/06/20 10/06/20 History irbesartan 300 mg PO QAM 10/06/20 10/06/20 History montelukast [Singulair] 10 mg PO Q OTHER DAY PRN 10/06/20 10/06/20 History Past Med/Surg History Medical History Anemia Breast cancer CAD (coronary artery disease) CKD (chronic kidney disease) stage 3, GFR 30-59 ml/min COPD with asthma Diabetic peripheral neuropathy associated with type 2 diabetes mellitus Dyslipidemia History of asthma History of cough History of diabetic ulcer of foot History of duodenal ulcer History of edema History of impacted cerumen History of psoriasis HTN (hypertension) Non-occlusive coronary artery disease Sleep apnea Type 2 diabetes mellitus Surgical History H/O mastectomy History of colonoscopy History of esophagogastroduodenoscopy History of removal of Port-a-Cath central IV port placement--Dr. Sorto 01/08/2016 removal-04/07/18 S/P foot surgery Family History Unknown Congestive heart failure Mother Congestive heart failure Sister Hypertension Diabetes Hyperlipidemia Social History Smoking Status: Former smoker Second Hand Exposure: No; Hx Alcohol Use: No Hx Substance Use: No Preferred Language: Urdu Communication Ability: Effective Visual Impairment: Limited Hearing Ability: Normal Digester Hand Required: No Beliefs That Will Affect Care: None marital status: Current Living Situation: Alone current occupational status: retired Feels Safe at Home: Yes Childhood Exposure to Second-Hand Smoke: Yes caffeine: Yes Dental Care, Regularly: Yes Physical Activity Frequency: 3-4 Times per Week Seatbelt Use: always Sunscreen Use: No Assistive Devices: Glasses Review of Systems Review of Systems: All systems reviewed & are unremarkable except as noted in HPI & below Physical Exam Constitutional: WD/WN, vitals as above Eyes: PERRL, conjunctivae normal, anicteric sclerae ENMT: external ear and nose normal, oropharynx normal Neck: trachea midline, no thyromegaly Respiratory: normal respiratory effort Cardiovascular: RRR, no murmur, no edema Gastrointestinal (Abdomen): normal bowel sounds, soft, nontender, no hepatosplenomegaly Psychiatric: A+Ox3, euthymic affect Results & Data Results & Data ([facility]) Vital Signs (Past 12 Hours) Vital Signs Temp Pulse Pulse Pulse Resp BP BP 10/06/20 15:14 36.4 C L 69 17 178/78 H 10/06/20 14:07 36.9 C 69 16 162/75 H 10/06/20 12:00 88 18 148/79 H 10/06/20 10:48 84 18 151/73 H 10/06/20 09:24 10/06/20 09:02 37.0 C 77 20 138/78 Pulse Ox 10/06/20 15:14 95 10/06/20 14:07 98 10/06/20 12:00 96 10/06/20 10:48 96 10/06/20 09:24 95 10/06/20 09:02 95 Code Status & VTE Plan VTE Prophylaxis Plan VTE Prophylaxis will be ordered: Yes PG Care Time/CCT Total # of Minutes Spent Total Time Spent with Patient: Total time spent is greater than 50% in coordination of care (as documented) at patient's floor/unit and/or counseling patient: Coding Level of Care Code 44778 Initial Inpt Care Lvl 1 Diagnoses Diabetic ulcer of right great toe E11.621; L97.519
[2020-10-06] MEDS: INSULIN ASPART 100 UNITS/ML 3 ML PEN SC SCH ×3 (16:49→21:26)
[2020-10-06] MEDS: REPAGLINIDE 1 MG TAB PO SCH (16:49)
[2020-10-06] MEDS: metFORMIN HCL 500 MG TAB PO SCH (16:49)
[2020-10-06] MEDS: FERROUS SULFATE 325 MG TAB PO SCH (20:32)
[2020-10-06] MEDS: ATORVASTATIN 40 MG TAB PO SCH (20:32)
[2020-10-06] MEDS: ENOXAPARIN INJ 40 MG/0.4 ML SYR SQ SCH (20:33)
[2020-10-06] MEDS: METOPROLOL TARTRATE 25 MG TAB PO SCH (20:33)
--- NOTE | 2020-10-06 21:12 | Magnetic Resonance Report ---
MR foot RT w/o con HISTORY: great toe infection, concern for osteomyelitis TECHNIQUE: Multiplanar multisequence MRI of the right forefoot was performed without contrast accordi ng to standard departmental protocol. COMPARISON STUDY: Right foot radiograph 10/06/2020. FINDINGS: Diffuse soft tissue edema seen throughout the forefoot. This most pronounced within the fir st toe. There is thinning and edema within the distal flexor hallucis longus tendon consistent with a high-grade partial tear. This is best seen on sagittal image 25. There is edema like marrow signal w ithin the distal phalanx of the first toe. No abnormal signal on the T1 sequences. No fracture or dis location identified. Moderate osteoarthritis seen throughout the majority of the forefoot. IMPRESSION: 1. Edema like marrow signal seen throughout the distal phalanx of the first toe. This is nonspecific could be due to an osteitis or bone contusion. No erosive changes to suggest osteomyelitis at this ti me. 2. High-grade partial tear at the distal flexor hallucis longus tendon. 3. Diffuse soft tissue edema seen throughout the forefoot. ACT 112: Negative or not required by law. Electronically signed by: Sohan Way M.D. 10/06/2020 9:11 PM
[2020-10-07] MEDS: ceFAZolin 1000MG 1,000 MG/7.5 ML SYR IV SCH ×3 (00:25→16:35)
[2020-10-07 04:59] LABS: BUN Creatinine Ratio 22.8 (10-20); C Reactive Protein 6.86 mg/dl (0-0.29); Calcium 8.9 mg/dl (8.5-10.1); Creatinine Clr Calc Pharmacy 40.5 ml/min; Est GFR (African American) 43.6; Est GFR (Non-African American) 37.6; Potassium 4.4 mmol/L (3.5-5.1)
[2020-10-07] MEDS: ANASTROZOLE 1 MG TAB PO SCH (08:45)
[2020-10-07] MEDS: INSULIN ASPART 100 UNITS/ML 3 ML PEN SC SCH ×5 (08:45→20:20)
[2020-10-07] MEDS: ASPIRIN 81 MG ECTAB PO SCH (09:00)
[2020-10-07] MEDS: CYANOCOBALAMIN (VITAMIN B-12) 2,500 MCG TAB.SUBL SL SCH (09:00)
[2020-10-07] MEDS: FERROUS SULFATE 325 MG TAB PO SCH ×2 (09:00→20:18)
[2020-10-07] MEDS ORDERED: SITagliptin PHOSPHATE 100 MG TAB PO SCH (09:00)
[2020-10-07] MEDS: IRBESARTAN 150 MG TAB PO SCH (09:00)
[2020-10-07] MEDS: ESCITALOPRAM OXALATE 10 MG TAB PO SCH (09:00)
[2020-10-07] MEDS ORDERED: CHOLECALCIFEROL 1,000 UNITS 25 MCG TAB PO SCH (09:00)
[2020-10-07] MEDS: CALCIUM 600MG + VIT D 400 IU TAB PO SCH (09:00)
[2020-10-07] MEDS: METOPROLOL TARTRATE 25 MG TAB PO SCH ×2 (09:00→20:18)
[2020-10-07] MEDS ORDERED: PIPERACILL/TAZOBAC CONSULT ACTIVE PRN (17:47)
[2020-10-07] MEDS: metFORMIN HCL 500 MG TAB PO SCH ×2 (17:57→18:06)
[2020-10-07] MEDS: REPAGLINIDE 1 MG TAB PO SCH ×3 (17:57→18:06)
[2020-10-07] MEDS ORDERED: PIPERACILLIN/TAZOBACTAM 3.375 GM in DEXTROSE 5% 100 ML IV SCH (18:00)
[2020-10-07] MEDS ORDERED: PIPERACILLIN/TAZOBACTAM 3.375 GM in DEXTROSE 5% 100 ML IV ONE (18:00)
[2020-10-07] MEDS: DAPTOmycin 250 MG in SYRINGE 0 ML IV SCH (19:13)
[2020-10-07] MEDS: ENOXAPARIN INJ 40 MG/0.4 ML SYR SQ SCH (20:19)
[2020-10-07] MEDS: ACETAMINOPHEN 325 MG TAB PO PRN (20:20)
[2020-10-08] MEDS: PIPERACILLIN/TAZOBACTAM 3.375 GM in DEXTROSE 5% 100 ML IV SCH ×3 (00:24→15:39)
[2020-10-08 06:07] LABS: Hematocrit (blood only) 34.9 % (37-47); Hemoglobin 11.6 g/dL (12.0-16.0); Mean Corpuscular Hemoglobin 29.1 pg (25-34); Mean Corpuscular Hgb Conc 33.2 g/dL (32-36); Mean Corpuscular Volume 87.5 fL (80-100); Platelet Count 339 K/uL (130-400); RDW Coefficient of Variation 12.9 % (11.5-14.5); RDW Standard Deviation 41.4 fL (36.4-46.3); Red Blood Count 3.99 M/uL (4.2-5.4); White Blood Count 8.33 K/uL (4.8-10.8)
[2020-10-08 06:33] LABS: BUN Creatinine Ratio 21.2 (10-20); Calcium 9.9 mg/dl (8.5-10.1); Creatinine Clr Calc Pharmacy 41.4 ml/min; Est GFR (African American) 44.8; Est GFR (Non-African American) 38.7; Magnesium 1.7 mg/dl (1.8-2.4); Potassium 4.8 mmol/L (3.5-5.1)
--- NOTE | 2020-10-08 08:39 | Orthopedic Progress Note ---
Date of Service October 08, 2020 Assessment & Plan (1) Diabetic ulcer of right great toe: Overall her symptoms seem stable, may be slightly improved. I spoke about her condition with the hospitalist. I think if we stay aggressive we may be able to save her toe. I think the best course of action would be to get a vascular consultation to make sure that she has good blood supply to the right foot. She needs to keep her sugars under control. We would then need infectious disease recommendations for IV antibiotics versus oral antibiotics. When she has a full treatment plan in place then she can be discharged to home and follow-up as an outpatient with wound care. Present on Admission?: Yes Admission and Anticipated Discharge Date Admission Date: October 06, 2020 Chato Dee was seen and examined at bedside this morning. Overall she is pretty stable. She has been getting wound care to her right foot. She has been ge tting IV antibiotics. Her symptoms of not worsened. She has no new complaints. Physical Exam Physical Exam: On physical examination of the right foot, I did remove the dressing. There is some granulation starting to form in the flexor crease of the right great toe. There is still some swelling of the toe but it may be a little bit smaller than it was yesterday. There is still some redness as well. The examination of the great toe is slightly improved from yesterday. Results & Data ([facility]) Vital Signs (Past 12 Hours) Vital Signs Temp Pulse Resp BP BP Pulse Ox 10/08/20 07:47 36.8 C 66 18 152/70 H 94 10/08/20 00:00 36.8 C 53 L 18 137/64 94 Diagnostic Findings MRI of the right great toe was reviewed by myself today with radiology interpretation and I will see any signs of osteomyelitis in the area of the great toe. There is some inflammatory changes and some edema within the bone but not see any destruction of the bone to consider osteomyelitis. There is no collection of an abscess. There is some fraying of the flexor tendon. PG Care Time/CCT Total # of Minutes Spent Total Time Spent with Patient: Total time spent is greater than 50% in coordination of care (as documented) at patient's floor/unit and/or counseling patient: Coding Level of Care Code 40453 Subseq Hosp Care Lvl 1 Diagnoses Diabetic ulcer of right great toe E11.621; L97.519
[2020-10-08] MEDS: INSULIN ASPART 100 UNITS/ML 3 ML PEN SC SCH ×4 (08:40→20:59)
[2020-10-08] MEDS: CYANOCOBALAMIN (VITAMIN B-12) 2,500 MCG TAB.SUBL SL SCH (08:41)
[2020-10-08] MEDS: CHOLECALCIFEROL 1,000 UNITS 25 MCG TAB PO SCH (08:41)
[2020-10-08] MEDS: FERROUS SULFATE 325 MG TAB PO SCH ×2 (08:42→20:58)
[2020-10-08] MEDS: METOPROLOL TARTRATE 25 MG TAB PO SCH ×2 (08:42→20:58)
[2020-10-08] MEDS: ESCITALOPRAM OXALATE 10 MG TAB PO SCH (08:42)
[2020-10-08] MEDS: ANASTROZOLE 1 MG TAB PO SCH (08:43)
[2020-10-08] MEDS: IRBESARTAN 150 MG TAB PO SCH (08:46)
[2020-10-08] MEDS: ASPIRIN 81 MG ECTAB PO SCH (08:46)
[2020-10-08] MEDS: CALCIUM 600MG + VIT D 400 IU TAB PO SCH (08:46)
--- NOTE | 2020-10-08 12:23 | Hospitalist Progress Note ---
Date of Service October 08, 2020 Assessment & Plan (1) Diabetic ulcer of right great toe: MRI foot of right foot on 10/06 showed "edema like marrow signal seen throughout the distal phalanx of the first toe" concerning for osteitis. - Discussed with Dr. Lockhart on 10/08 - Will get ABIs & ID consult - Continue daptomycin & Zosyn - Wound care - Follow wound culture from 10/06 - Growing Staph spc & Gram (-) (2) Type 2 diabetes mellitus: A1c was 7.2% this admission. - Sliding scale insulin (3) CKD (chronic kidney disease) stage 3, GFR 30-59 ml/min: Baseline Cr ~1.3. - Presently stable; avoid nephrotoxic meds. (4) CAD (coronary artery disease): No chest pain today. - Continue home meds: ASA, statin, beta-lou, ARB (5) HTN (hypertension): BP is 150/70. - Continue above meds (6) COPD with asthma: No complaints of dyspnea today. - Continue albuterol PRN (7) Sleep apnea: No issues. - CPAP HS - Outpatient management (8) Breast cancer: - Continue anastrozole (9) DVT prophylaxis: Had DVT in June as well - off Eliquis for this now. - Lovenox 40 mg SQ Q24h Admission and Anticipated Discharge Date Admission Date: October 06, 2020 Subjective No major concerns today. Foot is not incredibly painful. Reports no fevers/chills, chest pain, shortness of breath, abdominal pain, nausea, or vomiting. Physical Exam Constitutional: WD/WN, vitals as above Eyes: EOM intact bilaterally; no conjunctival abnormality ENMT: external ear and nose normal, oropharynx normal Neck: trachea midline, no thyromegaly normal visual inspection Respiratory: normal respiratory effort, lungs clear to auscultation no respiratory distress Cardiovascular: RRR, no murmur, no edema Gastrointestinal (Abdomen): Inspection/Auscultation: abdomen normal to inspection; abdomen not distended Musculoskeletal: no cyanosis or clubbing, extremities motor strength 5/5 Skin: + ulcer (Right great toe) Neurologic: moves all extremities and awake Psychiatric: Orientation: alert, oriented to person and cooperative Results & Data Results & Data ([facility]) Vital Signs (Past 12 Hours) Vital Signs Temp Pulse Resp BP Pulse Ox 10/08/20 07:47 36.8 C 66 18 152/70 H 94 PG Care Time/CCT Total # of Minutes Spent Total Time Spent with Patient: Total time spent is greater than 50% in coordination of care (as documented) at patient's floor/unit and/or counseling patient: Coding Level of Care Code 74861 Subseq Hosp Care Lvl 3 Diagnoses Diabetic ulcer of right great toe E11.621; L97.519 Type 2 diabetes mellitus E11.9 CKD (chronic kidney disease) stage 3, GFR 30-59 ml/min N18.3 CAD (coronary artery disease) I25.10 HTN (hypertension) I10 Hypertension type: essential hypertension COPD with asthma J44.9 Sleep apnea G47.30 Breast cancer C50.919 DVT prophylaxis Z29.9 (1) HTN (hypertension) Hypertension type: essential hypertension Qualified Code(s): I10 - Essential (primary) hypertension
--- NOTE | 2020-10-08 14:50 | Ultrasound Report ---
US ankle/brachial index comp CLINICAL HISTORY: Diabetic foot ulcer. COMPARISON STUDY: No previous studies for comparison. FINDINGS: Bilateral ankle to brachial indices were attempted. The left posterior tibial and dorsalis pedis vessels were noncompressible. The right posterior tibial artery was noncompressible. Right ankl e to brachial index measured 1.45 when using the dorsalis pedis. This is likely artificially elevated . This study is considered nondiagnostic. IMPRESSION: Nondiagnostic evaluation given vessel noncompressibility. ACT 112: Negative or not required by law. Electronically signed by: Keith Marion M.D. 10/08/2020 2:48 PM
[2020-10-08] MEDS: DAPTOmycin 250 MG in SYRINGE 0 ML IV SCH (18:03)
[2020-10-08] MEDS: ENOXAPARIN INJ 40 MG/0.4 ML SYR SQ SCH (20:58)
[2020-10-09] MEDS: PIPERACILLIN/TAZOBACTAM 3.375 GM in DEXTROSE 5% 100 ML IV SCH ×2 (00:02→10:19)
[2020-10-09 06:32] LABS: Hematocrit (blood only) 34.5 % (37-47); Hemoglobin 11.5 g/dL (12.0-16.0); Mean Corpuscular Hgb Conc 33.3 g/dL (32-36); Mean Corpuscular Volume 87.1 fL (80-100); Platelet Count 369 K/uL (130-400); RDW Coefficient of Variation 12.9 % (11.5-14.5); RDW Standard Deviation 41.8 fL (36.4-46.3); Red Blood Count 3.96 M/uL (4.2-5.4); White Blood Count 8.85 K/uL (4.8-10.8)
[2020-10-09 07:02] LABS: BUN Creatinine Ratio 18.7 (10-20); Calcium 9.5 mg/dl (8.5-10.1); Creatinine Clr Calc Pharmacy 39.4 ml/min; Est GFR (African American) 42.1; Est GFR (Non-African American) 36.3; Magnesium 1.7 mg/dl (1.8-2.4); Potassium 4.7 mmol/L (3.5-5.1)
[2020-10-09] MEDS ORDERED: PHARMACY GLYCEMIC MGMT CONSULT PRN (09:33)
[2020-10-09] MEDS ORDERED: INSULIN GLARGINE SOLOSTAR 100 UNITS/ML 3 ML PEN SC ONE (10:00)
[2020-10-09] MEDS: ANASTROZOLE 1 MG TAB PO SCH (10:13)
[2020-10-09] MEDS: ASPIRIN 81 MG ECTAB PO SCH (10:14)
[2020-10-09] MEDS: IRBESARTAN 150 MG TAB PO SCH (10:14)
[2020-10-09] MEDS: CALCIUM 600MG + VIT D 400 IU TAB PO SCH (10:14)
[2020-10-09] MEDS: CYANOCOBALAMIN (VITAMIN B-12) 2,500 MCG TAB.SUBL SL SCH (10:15)
[2020-10-09] MEDS: METOPROLOL TARTRATE 25 MG TAB PO SCH ×2 (10:15→20:25)
[2020-10-09] MEDS: FERROUS SULFATE 325 MG TAB PO SCH ×2 (10:15→20:25)
[2020-10-09] MEDS: ESCITALOPRAM OXALATE 10 MG TAB PO SCH (10:15)
[2020-10-09] MEDS: CHOLECALCIFEROL 1,000 UNITS 25 MCG TAB PO SCH (10:16)
[2020-10-09] MEDS: INSULIN ASPART 100 UNITS/ML 3 ML PEN SC SCH ×4 (10:22→20:25)
--- NOTE | 2020-10-09 10:34 | Ultrasound Report ---
US arterial duplex LE BI HISTORY: 75 years-old Female Diabetic foot ulcer COMPARISON: Ankle-brachial indices 10/09/2020 TECHNIQUE: Multiple real-time sonographic images of the arterial structures of the bilateral lower ex tremity is were obtained assessing grayscale appearance, color and spectral flow FINDINGS: RIGHT: Diffuse arterial calcifications. Triphasic waveforms noted within the common femoral, superficial fem oral, and popliteal arteries. Biphasic and triphasic waveforms are noted within the arteries of the c fci. No arterial occlusion. Slightly elevated peak systolic velocities within the anterior tibial and dorsalis pedis arteries are noted measuring up to 151 and 159 cm/s respectively. LEFT: Diffuse arterial calcifications. Triphasic waveforms are noted within the common femoral, femoris, betancourt perficial femoral and popliteal arteries. Elevated peak systolic velocities within the posterior tibi al artery measure up to 243 cm/s. Blunted monophasic waveforms within the distal peroneal artery with otherwise biphasic and triphasic waveforms noted within the lower leg. Elevated peak systolic veloci ties within the anterior tibial artery measure up to 130 cm/s. No arterial occlusion. IMPRESSION: 1. Diffuse calcified plaque of the lower legs without arterial occlusion. 2. Elevated peak systolic velocities within the bilateral lower leg arteries is most pronounced in th e left posterior tibial artery compatible with arterial stenosis. ACT 112: Negative or not required by law. The above report was generated using voice recognition software. It may contain grammatical, syntax o r spelling errors. Electronically signed by: Bridger Henriquez M.D. 10/09/2020 10:33 AM
--- NOTE | 2020-10-09 11:36 | Pharmacy Report ---
Glycemic Control Consultation - Date of Service October 09, 2020 - Scope Scope: Glycemic Pharmacist consulted for glycemic control and to write orders per [facility] inpatient glycemic control protocol. - Objective Weight: 92 kg Accuchecks BSG (last 24hrs): 10/07/20 10/08/20 10/08/20 07:33 11:49 16:19 Glucose POC Glucose 173 H 264 H 204 H 10/08/20 10/09/20 10/09/20 20:26 05:59 07:30 Glucose 197 H POC Glucose 206 H 246 H 10/09/20 11:25 Glucose POC Glucose 274 H Laboratory Data (last 24hrs): 10/09/20 05:59 Potassium 4.7 Carbon Dioxide 29 Anion Gap 3.0 Creatinine 1.41 H Est Cr Clr Drug Dosing 39.4 HbA1c: Hemoglobin A1c 7.2 % (4.5-5.6) H 10/06/20 09:30 - Recent Pertinent Medications Outpatient Anti-diabetic Regimen: * metformin 1 gm PO BID + Januvia 100 mg PO daily + Prandin 1 mg TIDM * A1c = 7.2 % 10/06/20 The patient is currently receiving: * Basal insulin: Lantus -- units every -- hours * Correctional Insulin: Novolog Correction per scale ACHS Goal Range: Low 120 mg/dL - High 160 mg/dL Correction Factor: 25 mg/dL/unit * Prandial insulin: Per carb ratio of 1 unit per - grams CHO consumed * Oral Agents: Risk Factors for Insulin Resistance: * Infection: diabetic foot infection on Zosyn * Diet: T2DM - Assessment & Plan Assessment & Plan: ASSESSMENT: * Ms Parker is a 75 y/o F with a PMH of T2DM on three oral medications. Oral medications have been held. BSGs yesterday were [phone] mg/dL with fasting today of 246 mg/dL. * Give between 0.2-0.3 units/kg of Lantus to start. (Almost full weight-based stress of 2 Lantus). * Start weight-based stress of 2 Novolog. * Continue to hold oral medications in light of infection. * Lunch BSG today elevated as patient received breakfast Novolog at 1030 and lunch BSG taken at 1130. Instructed nurse to only cover carbohydrates for lunch. PLAN FOR INPATIENT GLYCEMIC CONTROL: * Holding outpatient oral diabetes medications * Basal insulin * Lantus 27 units SQ x 1 * Bolus insulin * NovoLog per scale ACHS or Q6hrs while NPO * Goal Range: Low 110 mg/dL - High 140 mg/dL * Correction Factor: 25 mg/dL/unit * Nutritional / Prandial insulin per carb ratio of 1 unit per 7 grams CHO consumed * Please note that the plan above was derived based on current level of insulin resistance and hospital stress. These recommendations are appropriate for inpatient admission only. Plan of care upon discharge will need to be reassessed to avoid potential outpatient hypo/hyperglycemia. Thank you.
--- NOTE | 2020-10-09 15:00 | Hospitalist Progress Note ---
Date of Service October 09, 2020 Assessment & Plan (1) Diabetic ulcer of right great toe: MRI foot of right foot on 10/06 showed "edema like marrow signal seen throughout the distal phalanx of the first toe" concerning for osteitis. - Discussed with Dr. Lockhart on 10/08 - Wound care - Wound culture from 10/06 - Growing Staph aureus and ESBL E. coli - Stopped daptomycin & Zosyn -> Switch to ertapenem IV x 4-6 weeks. PICC ordered. Will work with CM to arrange home abx. Will follow up with Dr. Lockhart in 1-2 weeks to check wound. (2) Type 2 diabetes mellitus: A1c was 7.2% this admission. - Sliding scale insulin - Sugars up to 264. - Consulted glycemic pharmacist to adjust basal-bolus. (3) CKD (chronic kidney disease) stage 3, GFR 30-59 ml/min: Baseline Cr ~1.3. - Presently stable; avoid nephrotoxic meds. (4) CAD (coronary artery disease): No chest pain today. - Continue home meds: ASA, statin, beta-lou, ARB (5) HTN (hypertension): BP is 130/60. - Continue above meds (6) COPD with asthma: No complaints of dyspnea today. - Continue albuterol PRN (7) Sleep apnea: No issues. - CPAP HS - Outpatient management (8) Breast cancer: - Continue anastrozole (9) DVT prophylaxis: Had DVT in June as well - off Eliquis for this now. - Lovenox 40 mg SQ Q24h Admission and Anticipated Discharge Date Admission Date: October 06, 2020 Subjective Feeling well overall today. No foot pain. Reports no fevers/chills, chest pain, shortness of breath, abdominal pain, nausea, or vomiting. Physical Exam Constitutional: WD/WN, vitals as above Eyes: EOM intact bilaterally; no conjunctival abnormality ENMT: external ear and nose normal, oropharynx normal Neck: trachea midline, no thyromegaly normal visual inspection Respiratory: normal respiratory effort, lungs clear to auscultation no respiratory distress Cardiovascular: RRR, no murmur, no edema Gastrointestinal (Abdomen): Inspection/Auscultation: abdomen normal to inspection; abdomen not distended Musculoskeletal: no cyanosis or clubbing, extremities motor strength 5/5 Skin: + ulcer (Right great toe) Neurologic: moves all extremities and awake Psychiatric: Orientation: alert, oriented to person and cooperative Results & Data Results & Data ([facility]) Vital Signs (Past 12 Hours) Vital Signs Temp Pulse Resp BP Pulse Ox 10/09/20 07:19 37 C 74 16 131/61 91 PG Care Time/CCT Total # of Minutes Spent Total Time Spent with Patient: Total time spent is greater than 50% in coordination of care (as documented) at patient's floor/unit and/or counseling patient: Coding Level of Care Code 35345 Subseq Hosp Care Lvl 3 Diagnoses Diabetic ulcer of right great toe E11.621; L97.519 Type 2 diabetes mellitus E11.9 CKD (chronic kidney disease) stage 3, GFR 30-59 ml/min N18.3 CAD (coronary artery disease) I25.10 HTN (hypertension) I10 Hypertension type: essential hypertension COPD with asthma J44.9 Sleep apnea G47.30 Breast cancer C50.919 DVT prophylaxis Z29.9 (1) HTN (hypertension) Hypertension type: essential hypertension Qualified Code(s): I10 - Essential (primary) hypertension
[2020-10-09] MEDS: ERTAPENEM SODIUM 1,000 MG in SODIUM CHLORIDE 0.9% 50 ML IV SCH (17:12)
[2020-10-09] MEDS: ATORVASTATIN 40 MG TAB PO SCH (20:24)
[2020-10-09] MEDS: ENOXAPARIN INJ 40 MG/0.4 ML SYR SQ SCH (20:25)
[2020-10-09] MEDS: ACETAMINOPHEN 325 MG TAB PO PRN (20:32)
[2020-10-10 06:47] LABS: Hematocrit (blood only) 34.6 % (37-47); Hemoglobin 11.6 g/dL (12.0-16.0); Mean Corpuscular Hemoglobin 29.1 pg (25-34); Mean Corpuscular Hgb Conc 33.5 g/dL (32-36); Mean Corpuscular Volume 86.9 fL (80-100); Mean Platelet Volume 9.1 fL (7.4-10.4); Platelet Count 383 K/uL (130-400); RDW Coefficient of Variation 12.9 % (11.5-14.5); RDW Standard Deviation 41.6 fL (36.4-46.3); Red Blood Count 3.98 M/uL (4.2-5.4); White Blood Count 8.04 K/uL (4.8-10.8)
[2020-10-10 06:56] LABS: BUN Creatinine Ratio 23.9 (10-20); Calcium 9.8 mg/dl (8.5-10.1); Creatinine Clr Calc Pharmacy 43.1 ml/min; Est GFR (African American) 46.9; Est GFR (Non-African American) 40.5; Magnesium 1.8 mg/dl (1.8-2.4); Potassium 4.9 mmol/L (3.5-5.1)
[2020-10-10] MEDS: INSULIN ASPART 100 UNITS/ML 3 ML PEN SC SCH ×4 (08:19→21:05)
[2020-10-10] MEDS: CHOLECALCIFEROL 1,000 UNITS 25 MCG TAB PO SCH (08:20)
[2020-10-10] MEDS: CALCIUM 600MG + VIT D 400 IU TAB PO SCH (08:21)
[2020-10-10] MEDS: ASPIRIN 81 MG ECTAB PO SCH (08:21)
[2020-10-10] MEDS: FERROUS SULFATE 325 MG TAB PO SCH ×2 (08:21→21:04)
[2020-10-10] MEDS: ESCITALOPRAM OXALATE 10 MG TAB PO SCH (08:21)
[2020-10-10] MEDS: ANASTROZOLE 1 MG TAB PO SCH (08:21)
[2020-10-10] MEDS: CYANOCOBALAMIN (VITAMIN B-12) 2,500 MCG TAB.SUBL SL SCH (08:22)
[2020-10-10] MEDS: IRBESARTAN 150 MG TAB PO SCH (08:22)
[2020-10-10] MEDS: METOPROLOL TARTRATE 25 MG TAB PO SCH ×2 (08:22→21:04)
[2020-10-10] MEDS ORDERED: INSULIN GLARGINE SOLOSTAR 100 UNITS/ML 3 ML PEN SC SCH ×2 (09:00→21:00)
--- NOTE | 2020-10-10 12:20 | Pharmacy Report ---
Glycemic Control Progress Note - Date of Service October 10, 2020 - Scope Glycemic Pharmacist consulted for glycemic control to write orders per [facility] inpatient glycemic control protocol. - Objective Accuchecks BSG(last 24 hours):: 10/09/20 10/09/20 10/10/20 16:30 20:05 05:31 Glucose 190 H POC Glucose 235 H 265 H 10/10/20 10/10/20 07:30 11:18 Glucose POC Glucose 239 H 278 H HbA1c:: Hemoglobin A1c 7.2 % (4.5-5.6) H 10/06/20 09:30 - Recent Pertinent Medications The patient is currently receiving: * Basal insulin: Lantus 27 units every 24 hours * Correctional Insulin: Novolog Correction per scale ACHS Goal Range: Low 110 mg/dL - High 140 mg/dL Correction Factor: 25 mg/dL/unit * Prandial insulin: Per carb ratio of 1 unit per 7 grams CHO consumed - Outpatient Anti-Diabetic Meds METFORMIN 1 GM PO BID JANUVIA 100 MG DAILY PRANDIN 1 MG TIDM - Assessment & Plan ASSESSMENT: * See progress note from 10/09/20 for more background info, in short: * Pt receiving SQ basal bolus insulin regimen for hyperglycemia secondary to baseline DM (outpatient regimen on hold). * Patient is currently receiving an average of 62 units of insulin per day * 27 units of basal insulin * 35 units of prandial/correctional insulin * BSGs ranging 235 - 274 mg/dl over the past 24hrs * Changes needed to insulin regimen: * AM Fasting BSG = 239 mg/dl. This is above goal range for patient based on inpatient targets and co-morbidities. Therefore Basal insulin will be increased to 30 units daily (weight-based stress of 2). * Post-prandial BSGs were stable. Tighten to weight-based stress of 3. * Total daily dose = 70-80 units. Increased insulin appropriately. PLAN FOR INPATIENT GLYCEMIC CONTROL: * INCREASING Lantus to 30 units SQ daily * TIGHTENING correction factor to 15 mg/dl/unit * TIGHTENING carb ratio to 1 unit per 5 grams CHO consumed * Continuing goal range of Low 110 mg/dL - High 140 mg/dL * Please note that the plan above was derived based on current level of insulin resistance and hospital stress. These recommendations are appropriate for inpatient admission only. Plan of care upon discharge will need to be reassessed to avoid potential outpatient hypo/hyperglycemia. Thank you.
[2020-10-10] MEDS: ERTAPENEM SODIUM 1,000 MG in SODIUM CHLORIDE 0.9% 50 ML IV SCH (15:57)
--- NOTE | 2020-10-10 20:42 | Hospitalist Progress Note ---
Date of Service October 10, 2020 Assessment & Plan (1) Diabetic ulcer of right great toe: MRI foot of right foot on 10/06 showed "edema like marrow signal seen throughout the distal phalanx of the first toe" concerning for osteitis. - Discussed with Dr. Lockhart on 10/08 - Wound care - Wound culture from 10/06 - Growing Staph aureus and ESBL E. coli - Stopped daptomycin & Zosyn -> Switch to ertapenem IV x 4-6 weeks. PICC line ordered and consent obtained on 10/10. However, no adequate IV access, will have patient Will work with CM to arrange home abx. Will follow up with Dr. Lockhart in 1-2 weeks to check wound. (2) Type 2 diabetes mellitus: A1c was 7.2% this admission. - Sliding scale insulin - Sugars up to 264. - Consulted glycemic pharmacist to adjust basal-bolus. (3) CKD (chronic kidney disease) stage 3, GFR 30-59 ml/min: Baseline Cr ~1.3. - Presently stable; avoid nephrotoxic meds. (4) CAD (coronary artery disease): No chest pain today. - Continue home meds: ASA, statin, beta-lou, ARB (5) HTN (hypertension): BP is 130/60. - Continue above meds (6) COPD with asthma: No complaints of dyspnea today. - Continue albuterol PRN (7) Sleep apnea: No issues. - CPAP HS - Outpatient management (8) Breast cancer: - Continue anastrozole (9) DVT prophylaxis: Had DVT in June as well - off Eliquis for this now. - Lovenox 40 mg SQ Q24h Admission and Anticipated Discharge Date Admission Date: October 06, 2020 Subjective 75 yo female reports no new symptoms today. Currently is feeling well. Review of Systems Review of Systems: All systems reviewed & are unremarkable except as noted in HPI & below Physical Exam Physical Exam: Constitutional: WD/WN, vitals as above Eyes: EOM intact bilaterally; no conjunctival abnormality ENMT: external ear and nose normal, oropharynx normal Neck: trachea midline, no thyromegaly normal visual inspection Respiratory: normal respiratory effort, lungs clear to auscultation no respiratory distress Cardiovascular: RRR, no murmur, no edema Gastrointestinal (Abdomen): Inspection/Auscultation: abdomen normal to inspection; abdomen not distended Musculoskeletal: no cyanosis or clubbing, extremities motor strength 5/5 Skin: + ulcer (Right great toe) Neurologic: moves all extremities and awake Psychiatric: Orientation: alert, oriented to person and cooperative Results & Data Results & Data ([facility]) Vital Signs (Past 12 Hours) Vital Signs Temp Pulse Resp BP Pulse Ox 10/10/20 15:55 36.7 C 65 18 156/71 H 96 PG Care Time/CCT Total # of Minutes Spent Total Time Spent with Patient: Total time spent is greater than 50% in coordination of care (as documented) at patient's floor/unit and/or counseling patient: Coding Level of Care Code 69305 Subseq Hosp Care Lvl 2 Diagnoses Diabetic ulcer of right great toe E11.621; L97.519 Type 2 diabetes mellitus E11.9 CKD (chronic kidney disease) stage 3, GFR 30-59 ml/min N18.3 CAD (coronary artery disease) I25.10 HTN (hypertension) I10 Hypertension type: essential hypertension COPD with asthma J44.9 Sleep apnea G47.30 Breast cancer C50.919 DVT prophylaxis Z29.9 (1) HTN (hypertension) Hypertension type: essential hypertension Qualified Code(s): I10 - Essential (primary) hypertension
[2020-10-10] MEDS: ACETAMINOPHEN 325 MG TAB PO PRN (21:03)
[2020-10-10] MEDS: ATORVASTATIN 40 MG TAB PO SCH (21:06)
[2020-10-10] MEDS: ENOXAPARIN INJ 40 MG/0.4 ML SYR SQ SCH (21:06)
[2020-10-11] MEDS: CHOLECALCIFEROL 1,000 UNITS 25 MCG TAB PO SCH (08:30)
[2020-10-11] MEDS: CYANOCOBALAMIN (VITAMIN B-12) 2,500 MCG TAB.SUBL SL SCH (08:31)
[2020-10-11] MEDS: ESCITALOPRAM OXALATE 10 MG TAB PO SCH (08:31)
[2020-10-11] MEDS: ANASTROZOLE 1 MG TAB PO SCH (08:31)
[2020-10-11] MEDS: CALCIUM 600MG + VIT D 400 IU TAB PO SCH (08:31)
[2020-10-11] MEDS: ASPIRIN 81 MG ECTAB PO SCH (08:31)
[2020-10-11] MEDS: IRBESARTAN 150 MG TAB PO SCH (08:31)
[2020-10-11] MEDS: FERROUS SULFATE 325 MG TAB PO SCH (08:31)
[2020-10-11] MEDS: METOPROLOL TARTRATE 25 MG TAB PO SCH (08:32)
[2020-10-11] MEDS: INSULIN ASPART 100 UNITS/ML 3 ML PEN SC SCH ×2 (08:33→13:11)
[2020-10-11] MEDS ORDERED: INSULIN GLARGINE SOLOSTAR 100 UNITS/ML 3 ML PEN SC SCH (09:00)
[2020-10-11] MEDS ORDERED: ERTAPENEM SODIUM 1,000 MG in SODIUM CHLORIDE 0.9% 50 ML IV SCH (12:00)
--- NOTE | 2020-10-11 12:26 | Pharmacy Report ---
Glycemic Control Progress Note - Date of Service October 11, 2020 - Scope Glycemic Pharmacist consulted for glycemic control to write orders per [facility] inpatient glycemic control protocol. - Objective Accuchecks BSG(last 24 hours):: 10/10/20 10/10/20 10/11/20 16:07 20:05 07:46 POC Glucose 153 H 204 H 208 H 10/11/20 11:24 POC Glucose 291 H HbA1c:: Hemoglobin A1c 7.2 % (4.5-5.6) H 10/06/20 09:30 - Recent Pertinent Medications The patient is currently receiving: * Basal insulin: Lantus 30 units every 24 hours plus 10 units HS * Correctional Insulin: Novolog Correction per scale ACHS Goal Range: Low 110 mg/dL - High 140 mg/dL Correction Factor: 15 mg/dL/unit * Prandial insulin: Per carb ratio of 1 unit per 5 grams CHO consumed - Outpatient Anti-Diabetic Meds metformin 1 gm BID Prandin 1 mg TIDM Januvia 100 mg daily - Assessment & Plan ASSESSMENT: * See progress note from 10/09/20 for more background info, in short: * Pt receiving SQ basal bolus insulin regimen for hyperglycemia secondary to baseline DM (outpatient regimen on hold). Currently on Invanz for diabetic foot infection. * Patient is currently receiving an average of 92 units of insulin per day * 40 units of basal insulin * 52 units of prandial/correctional insulin * BSGs ranging 153 - 278 mg/dl over the past 24hrs * Changes needed to insulin regimen: * AM Fasting BSG = 208 mg/dl. This is getting close goal range for patient based on inpatient targets and co-morbidities. Therefore Basal insulin will be increased to Lantus 40 units (close to weight-based stress of 3) . * Post-prandial BSGs trended upwards yesterday. Tightened CF/CR. * Total daily dose = ~100 units -- about 1 unit/kg. * Additional notes / comments: Hold oral medications PLAN FOR INPATIENT GLYCEMIC CONTROL: * Increasing Lantus to 40 units SQ daily * TIGHTENING correction factor to 12 mg/dl/unit * TIGHTENING carb ratio to 1 unit per 4 grams CHO consumed * Continuing goal range of Low 110 mg/dL - High 140 mg/dL RECOMMENDATIONS FOR DISCHARGE: * Patient's HbA1C is within goal range. Can continue same regimen as an outpatient while monitoring BSGs closely. Thank you.
--- NOTE | 2020-10-12 12:24 | Discharge Summary ---
Date of Service October 11, 2020 Admission HPI Per Admitting Provider Leila is a pleasant 75-year-old female who is been dealing with a weeklong history of increasing right great toe swelling and erythema. She noticed an ulceration on the plantar aspect of the great toe. She has been going to wound care. Wound care was concerned that she may need IV antibiotics and she was admitted to [facility]. Orthopedics was consulted to evaluate and treat. Principal Diagnosis Diabetic foot ulcer Discharge Exam Constitutional: WD/WN, vitals as above Eyes: EOM intact bilaterally; no conjunctival abnormality ENMT: external ear and nose normal, oropharynx normal Neck: trachea midline, no thyromegaly normal visual inspection Respiratory: normal respiratory effort, lungs clear to auscultation no respiratory distress Cardiovascular: RRR, no murmur, no edema Gastrointestinal (Abdomen): Inspection/Auscultation: abdomen normal to inspection; abdomen not distended Musculoskeletal: no cyanosis or clubbing, extremities motor strength 5/5 Skin: + ulcer (Right great toe) Neurologic: moves all extremities and awake Psychiatric: Orientation: alert, oriented to person and cooperative Discharge Data Allergies Allergy/AdvReac Type Severity Reaction Status Date / Time benzonatate Allergy Unknown PATIENT IS Verified 10/12/20 09:07 UNAWARE OF REACTION WAS PLACED ON CHART propoxyphene Allergy Unknown PATIENT IS Verified 10/12/20 09:07 UNAWARE OF REACTION WAS PLACED ON CHART codeine AdvReac Intermediate NAUSEA/VOMI Verified 10/12/20 09:07 TING Consultations 10/06/20 10:59 ED Decision to Admit Stat 10/06/20 14:04 Consult Orthopedic Surgery Routine 10/08/20 12:23 Consult Infectious Diseases Routine Ordered Studies 10/06/20 14:04 MR foot RT w/o con Routine 10/08/20 12:23 US ankle/brachial index comp Routine 10/09/20 09:00 US arterial duplex LE BI Routine Hospital Course (1) Diabetic ulcer of right great toe: MRI foot of right foot on 10/06 showed "edema like marrow signal seen throughout the distal phalanx of the first toe" concerning for osteitis. - Discussed with Dr. Lockhart on 10/08 - Wound care - Wound culture from 10/06 - Growing Staph aureus and ESBL E. coli - Stopped daptomycin & Zosyn -> Switch to ertapenem IV x 4-6 weeks. PICC line ordered and consent obtained on 10/10. However, no adequate IV access, us GUIDED PERIPHERAL LINE PLACED. Will give IV antibotics for 4 weeks. Patient will followup with Wound care clinic and will decide if patient will need 2 more weeks of antibiotics for a total of 6 weeks if necessary. May followup with Dr. Lockhart as an outpatient. (2) Type 2 diabetes mellitus: A1c was 7.2% this admission. - Sliding scale insulin - Sugars up to 264. - Consulted glycemic pharmacist to adjust basal-bolus. (3) CKD (chronic kidney disease) stage 3, GFR 30-59 ml/min: Baseline Cr ~1.3. - Presently stable; avoid nephrotoxic meds. (4) CAD (coronary artery disease): No chest pain today. - Continue home meds: ASA, statin, beta-lou, ARB (5) HTN (hypertension): BP is 130/60. - Continue above meds (6) COPD with asthma: No complaints of dyspnea today. - Continue albuterol PRN (7) Sleep apnea: No issues. - CPAP HS - Outpatient management (8) Breast cancer: - Continue anastrozole (9) DVT prophylaxis: Had DVT in June as well - off Eliquis for this now. - Lovenox 40 mg SQ Q24h Total Time Total Time Spent Total Time Spent (In Minutes): 32 Discharge Plan Discharge Items Patient Disposition: Home - Home Health Services Reason For Visit: FOOT INFECTION Discharge Diagnosis: foot infection Activity: Resume your previous activity Non-emergency contact: Primary Care Provider Call non-emergency contact if: you have any medication questions Follow-up/Referrals: Abimael Vargas MD [Primary Care Provider] - 10/17/20 11:00 am (APPT WITH ANSHUL CLAIRE) Diet: Carb Consistent or DM2 Addtl Attending Provider Instructions: You have been hospitalized for an acute medical problem. During your stay at [facility], we have made an effort to correct the problem that brought you to the hospital while keeping you as comfortable as possible. Medications were used to bring your condition under control and your discharge instructions will include directions for any medications you should take after leaving the hospital. Please make sure you see your Primary Care Provider as part of your follow up plan. Ortho followup in 3-4 weeks. PCP followup in 1-2 weeks. Pending Studies at Discharge: No Stand-Alone Forms: My [facility], Smoking Cessation Medications and DC Order Prescriptions: New ertapenem 1 gram recon soln 1 g IV DAILY Qty: 28 RF: 0 Continued metformin 1,000 mg tablet 1,000 mg PO BID Qty: 180 RF: 3 (DME) OneTouch Ultra Blue Test Strip Strip See Dose Instructions .ROUTE .MEDSUPPLY Qty: 300 RF: 3 metoprolol tartrate 25 mg tablet 25 mg PO BID Qty: 180 RF: 3 repaglinide 1 mg tablet 1 mg PO TID Qty: 270 RF: 3 clotrimazole-betamethasone 1-0.05 % cream 1 applic TOP BID PRN (Reason: candidal intertrigo) Qty: 45 RF: 1 atorvastatin 40 mg tablet 40 mg PO HS Qty: 90 RF: 3 ferrous sulfate 325 mg (65 mg iron) tablet 325 mg PO BID RF: 0 cyanocobalamin (vitamin B-12) 2,500 mcg tablet, sublingual 2,500 mcg SL QAM RF: 0 cholecalciferol (vitamin D3) 2,000 unit capsule 4,000 units PO QAM RF: 0 albuterol sulfate [Ventolin HFA] 90 mcg/actuation HFA aerosol inhaler 1 puffs INH Q6H PRN (Reason: shortness of breath or wheezing) Qty: 8.5 RF: 0 (DME) Aerochamber Plus Z Stat Spacer See Rx Instructions .ROUTE .MEDSUPPLY Qty: 1 RF: 0 sitagliptin 100 mg tablet 100 mg PO QAM RF: 0 anastrozole 1 mg tablet 1 mg PO QAM RF: 0 aspirin [Aspirin Low Dose] 81 mg Tablet,Delayed Release (Dr/Ec) 81 mg PO QAM RF: 0 calcium carbonate 600 mg calcium (1,500 mg) Tablet 600 mg PO QAM RF: 0 acetaminophen [Tylenol Extra Strength] 500 mg Tablet 1,500 mg PO Q6H PRN (Reason: Pain) RF: 0 montelukast [Singulair] 10 mg tablet 10 mg PO Q OTHER DAY PRN (Reason: asthma) RF: 0 irbesartan 300 mg tablet 300 mg PO QAM RF: 0 escitalopram oxalate 10 mg tablet 10 mg PO QAM RF: 0 Discontinued sulfamethoxazole-trimethoprim [Bactrim DS] 800-160 mg tablet 1 tab PO BID 14 Days Qty: 28 RF: 0 Discharge Orders: Discharge Order (Routine); Ordered 10/11/20 Ordered By: Nima Inman Admission Data Admit Date/Time: 10/06/20 11:40 Attending Provider: Nima Inman Admit Provider: Hung Sifuentes Primary Care Provider: Abimael Vargas Other Providers: Jose Lockhart ; Laureano Dove ; Scott Phillips ; Dev Mayen ; Angel Bermudez I. ; Pablo Corral II ; Ghislaine Fish ; Simone Cruz ; [facility] Other Interventions: Discharge Summary Assessment (RN) Last Done: 10/11/20 14:22 Coding Level of Care Code D/C Day Management >30 mins Diagnoses Diabetic ulcer of right great toe E11.621; L97.519 Type 2 diabetes mellitus E11.9 CKD (chronic kidney disease) stage 3, GFR 30-59 ml/min N18.3 CAD (coronary artery disease) I25.10 HTN (hypertension) I10 Hypertension type: essential hypertension COPD with asthma J44.9 Sleep apnea G47.30 Breast cancer C50.919 DVT prophylaxis Z29.9 Time Spent (min) 32
== END 2020-10-11 14:59 | disposition home health service (06) | DRG 638 ==
LOC: ED 08:47 → 2N 11:40 → SUATTDRO 11:40 → 2N 13:24

== ENCOUNTER 2020-11-23 14:37 | Inpatient (IN) ==
--- NOTE | 2020-11-23 15:44 | Emergency Department Note ---
Impression & Plan Osteomyelitis, ESBL (extended spectrum beta-lactamase) producing bacteria infection, HTN (hypertension) ED Provider Note NAME: ARLEY ARCINIEGA AGE: 75 SEX: F : 1945 ARRIVES VIA: Walk-In INFORMANT: Patient ED PROVIDER(S): Hung Galdamez DO CHIEF COMPLAINT: Infection of right third toe HPI: Patient is a 75-year-old female who presents to the ER for infection of her right third toe. She was seen and evaluated at wound care clinic and referred in. They are concerned for osteomyelitis which involves the bone in combination with an ESBL and staph cultures. The whole third toe is red and getting worse. She has no pain there. She has breakdown at the base of the right first toe which is not painful either and is improving. She also has two ulcers right midfoot which are mildly painful only with palpation. She denies any headache or change in vision. No cough or runny nose. No loss of taste or smell. No chest pain shortness of breath, nausea,vomiting or diarrhea. No other exacerbating or remitting factors. ROS: See above HPI for pertinent positives & negatives. A total of 10 systems reviewed and were otherwise negative. PAST MEDICAL HISTORY:See Below PAST SURGICAL HISTORY:See Below FAMILY HISTORY:See Below SOCIAL HISTORY:See Below HOME MEDICATIONS:See Below ALLERGIES:See Below VITALS:See Below PHYSICAL EXAMINATION: GENERAL: Sitting up in bed, alert, well appearing, well nourished, no distress, non-toxic EYE EXAM: normal conjunctiva. OROPHARYNX: no exudate, no erythema, lips, buccal mucosa, and tongue normal and mucous membranes are moist LUNGS: Clear to auscultation. Normal chest wall mechanics HEART: no murmurs, S1 normal and S2 normal ABDOMEN: abdomen soft, non-tender, normo-active bowel sounds, no masses, no rebound or guarding. UPPER EXTREMITIES: upper extremities are grossly normal. LOWER EXTREMITIES: Right foot with two small ulcers on dorsal midfoot surface. No surrounding erythema or drainage. Right third toe is erythematous circumferentially with an ulcer distal aspect of the toe which appears to involve the bone which is palpable. Small ulcer at the base of the right first toe. NEURO EXAM: Normal sensorium, cranial nerves II-XII grossly intact, normal speech, no gross weakness of arms, no gross weakness of legs. MEDICAL DECISION MAKING: Patient is a 75-year-old female referred in from wound care clinic for 3 open wounds on the right foot to which are growing ESBL and staph in the third which is just growing staph. Patient does have an osteo of the right third toe. Wounds have been followed by wound care clinic and the right third toe is getting worse. She has been on antibiotics as an outpatient for the past 2 to 3 days. Labs show no significant leukocytosis or anemia. BMP with LFTs bilirubin was unremarkable. Covid was negative. X-ray confirms osteo-. Patient was given meropenem combination with vancomycin updated bedside discussed with the hospitalist for further evaluation. Triage Nursing notes reviewed. Limited review of prior medical records performed Vital Signs: reviewed and remarkable for HTN Differential diagnosis: Cellulitis, abscess, MRSA infection, DVT, necrotizing fasciitis, dermatitis, drug eruption, allergic reaction, as well as other pathologies. ER treatment provided: See below Diagnostics interpreted by me: ECG: none Cardiac Monitoring: An order was placed for continuous cardiac monitoring. The monitor shows a rate of 70 with sinus rhythm. Laboratory studies: As stated above and show below. Imaging studies: X-ray of the right third toe shows osteomyelitis Consultation(s): Discussed with the hospitalist for further evaluation Procedures: none Critical Care: None Past Med/Surg History Medical History Anemia Breast cancer CAD (coronary artery disease) CKD (chronic kidney disease) stage 3, GFR 30-59 ml/min COPD with asthma Diabetic peripheral neuropathy associated with type 2 diabetes mellitus Dyslipidemia History of asthma History of cough History of diabetic ulcer of foot History of duodenal ulcer History of edema History of impacted cerumen History of psoriasis HTN (hypertension) Non-occlusive coronary artery disease Sleep apnea Type 2 diabetes mellitus Surgical History H/O mastectomy History of colonoscopy History of esophagogastroduodenoscopy History of removal of Port-a-Cath central IV port placement--Dr. Sorto 01/08/2016 removal-04/07/18 S/P foot surgery Family History Unknown Congestive heart failure Mother Congestive heart failure Sister Hypertension Diabetes Hyperlipidemia Social History Smoking Status: Former smoker Second Hand Exposure: No; Hx Alcohol Use: No Hx Substance Use: No Preferred Language: Turkmen Communication Ability: Effective Visual Impairment: Limited Hearing Ability: Normal Distance Education Teacher Required: No Beliefs That Will Affect Care: None marital status: Current Living Situation: Alone current occupational status: retired Feels Safe at Home: Yes Childhood Exposure to Second-Hand Smoke: Yes caffeine: Yes Dental Care, Regularly: Yes Physical Activity Frequency: 3-4 Times per Week Seatbelt Use: always Sunscreen Use: No Assistive Devices: None Allergies Allergies Allergy/AdvReac Type Severity Reaction Status Date / Time benzonatate Allergy Unknown PATIENT IS Verified 11/23/20 15:43 UNAWARE OF REACTION WAS PLACED ON CHART propoxyphene Allergy Unknown PATIENT IS Verified 11/23/20 15:43 UNAWARE OF REACTION WAS PLACED ON CHART codeine AdvReac Intermediate NAUSEA/VOMI Verified 11/23/20 15:43 TING Home Meds Home Medications Medication Instructions Recorded Confirmed cyanocobalamin (vitamin B-12) 2,500 mcg SL QAM tab 07/29/19 11/23/20 2,500 mcg sublingual tablet ferrous sulfate 325 mg (65 mg 325 mg PO BID tab 07/29/19 11/23/20 iron) tablet anastrozole 1 mg PO QAM 06/21/20 11/23/20 aspirin [Aspirin Low Dose] 81 mg PO QAM 06/21/20 11/23/20 calcium carbonate 600 mg PO QAM 06/21/20 11/23/20 acetaminophen [Tylenol Extra 1,500 mg PO Q6H PRN 10/06/20 11/23/20 Strength] escitalopram oxalate 10 mg PO QAM 10/06/20 11/23/20 irbesartan 300 mg PO QAM 10/06/20 11/23/20 montelukast [Singulair] 10 mg PO Q OTHER DAY PRN 10/06/20 11/23/20 cholecalciferol (vitamin D3) 50 2,000 unit PO QAM cap 10/12/20 11/23/20 mcg (2,000 unit) capsule magnesium oxide 600 mg PO BID tab 10/17/20 11/23/20 metformin 1,000 mg tablet 1,000 mg PO .am tab 10/17/20 11/23/20 metformin 500 mg tablet 1,500 mg PO .q pm tab 10/17/20 11/23/20 Previous Rx's Medication Instructions Recorded atorvastatin 40 mg tablet 40 mg PO HS #90 tab 11/11/19 albuterol sulfate 90 mcg/actuation 1 puffs INH Q6H PRN #8.5 gm 12/14/19 aerosol inhaler inhalational spacing device #1 ea 12/14/19 blood sugar diagnostic #300 ea 04/20/20 metoprolol tartrate 25 mg tablet 25 mg PO BID #180 tab 06/29/20 repaglinide 1 mg tablet 1 mg PO TID #270 tab 07/06/20 clotrimazole-betamethasone 1 1 applic TOP BID PRN #45 g 08/01/20 %-0.05 % topical cream sitagliptin 100 mg tablet 100 mg PO QAM #90 tab 11/13/20 cefdinir 300 mg capsule 300 mg PO BID 14 Days #28 cap 11/20/20 Results & Data (ED) Vital Signs Vital Signs - 24 hr 11/23/20 14:39 11/23/20 17:05 11/23/20 17:10 Temperature 35.7 C L Temperature Source Oral Pulse Rate 81 63 Pulse Rate from SpO2 Sensor 64 Respiratory Rate 18 16 Blood Pressure 182/68 H 151/67 H Blood Pressure Mean 106 95 Pulse Oximetry 97 95 97 Oxygen Delivery Method Room Air Sepsis Recent Fever Within 48 Hours No Sepsis New/Unexplained Change in Mental Status N/A Sepsis Action Taken by Nursing No Action Required 11/23/20 17:30 11/23/20 18:00 11/23/20 18:30 Temperature Temperature Source Pulse Rate 63 60 61 Pulse Rate from SpO2 Sensor 62 61 62 Respiratory Rate 12 14 14 Blood Pressure 154/66 H 136/70 145/68 H Blood Pressure Mean 95 92 93 Pulse Oximetry 96 95 96 Oxygen Delivery Method Sepsis Recent Fever Within 48 Hours Sepsis New/Unexplained Change in Mental Status Sepsis Action Taken by Nursing 11/23/20 19:00 Temperature Temperature Source Pulse Rate 67 Pulse Rate from SpO2 Sensor 68 Respiratory Rate 21 Blood Pressure 174/74 H Blood Pressure Mean 107 Pulse Oximetry 96 Oxygen Delivery Method Sepsis Recent Fever Within 48 Hours Sepsis New/Unexplained Change in Mental Status Sepsis Action Taken by Nursing Laboratory Data Result diagrams: 11/23/20 17:05 11/23/20 17:05 Lab Results 11/23/20 11/23/20 11/23/20 Range/Units 17:05 17:05 17:05 WBC 9.09 (4.8-10.8) K/uL RBC 4.37 (4.2-5.4) M/uL Hgb 12.7 (12.0-16.0) g/dL Hct 37.7 (37-47) % MCV 86.3 (80-100) fL MCH 29.1 (25-34) pg MCHC 33.7 (32-36) g/dL RDW Std Deviation 43.7 (36.4-46.3) fL RDW Coeff of Eagle 13.9 (11.5-14.5) % Plt Count 303 (130-400) K/uL MPV 9.4 (7.4-10.4) fL Immature Gran % (Auto) 0.1 % Neut % (Auto) 66.1 % Lymph % (Auto) 18.4 % [place] % (Auto) 7.4 % Eos % (Auto) 7.2 % Baso % (Auto) 0.8 % Neut # (Auto) 6.02 (1.4-6.5) K/uL Lymph # (Auto) 1.67 (1.2-3.4) K/uL [place] # (Auto) 0.67 H (0.11-0.59) K/uL Eos # (Auto) 0.65 H (0-0.5) K/uL Baso # (Auto) 0.07 (0-0.2) K/uL Immature Gran # (Auto) 0.01 (0.00-0.02) K/uL Sodium 138 (136-145) mmol/L Potassium 4.5 (3.5-5.1) mmol/L Chloride 105 (98-107) mmol/L Carbon Dioxide 28 (21-32) mmol/L Anion Gap 5.0 (3-11) BUN 23 H (7-18) mg/dl Creatinine 1.12 (0.6-1.2) mg/dl Est Cr Clr Drug Dosing 49.8 ml/min Est GFR ( Amer) 55.6 Est GFR (Non-Af Amer) 48.0 BUN/Creatinine Ratio 20.4 H (10-20) Glucose 83 (70-99) mg/dl Calcium 10.6 H (8.5-10.1) mg/dl Total Bilirubin 0.6 (0.2-1) mg/dl AST 25 (15-37) U/L ALT 35 (12-78) U/L Alkaline Phosphatase 102 (45-117) U/L Total Protein 8.2 (6.4-8.2) gm/dl Albumin 3.9 (3.4-5.0) gm/dl Globulin 4.3 H (2.5-4.0) gm/dl Albumin/Globulin Ratio 0.9 (0.9-2) COVID-19 Eval [facility] SARS-CoV-2, RNA, NAAT (NEGATIVE) 11/23/20 Range/Units 17:05 WBC (4.8-10.8) K/uL RBC (4.2-5.4) M/uL Hgb (12.0-16.0) g/dL Hct (37-47) % MCV (80-100) fL MCH (25-34) pg MCHC (32-36) g/dL RDW Std Deviation (36.4-46.3) fL RDW Coeff of Eagle (11.5-14.5) % Plt Count (130-400) K/uL MPV (7.4-10.4) fL Immature Gran % (Auto) % Neut % (Auto) % Lymph % (Auto) % [place] % (Auto) % Eos % (Auto) % Baso % (Auto) % Neut # (Auto) (1.4-6.5) K/uL Lymph # (Auto) (1.2-3.4) K/uL [place] # (Auto) (0.11-0.59) K/uL Eos # (Auto) (0-0.5) K/uL Baso # (Auto) (0-0.2) K/uL Immature Gran # (Auto) (0.00-0.02) K/uL Sodium (136-145) mmol/L Potassium (3.5-5.1) mmol/L Chloride (98-107) mmol/L Carbon Dioxide (21-32) mmol/L Anion Gap (3-11) BUN (7-18) mg/dl Creatinine (0.6-1.2) mg/dl Est Cr Clr Drug Dosing ml/min Est GFR ( Amer) Est GFR (Non-Af Amer) BUN/Creatinine Ratio (10-20) Glucose (70-99) mg/dl Calcium (8.5-10.1) mg/dl Total Bilirubin (0.2-1) mg/dl AST (15-37) U/L ALT (12-78) U/L Alkaline Phosphatase (45-117) U/L Total Protein (6.4-8.2) gm/dl Albumin (3.4-5.0) gm/dl Globulin (2.5-4.0) gm/dl Albumin/Globulin Ratio (0.9-2) COVID-19 Eval Order SARS-CoV-2, RNA, NAAT NEGATIVE (NEGATIVE) Administered Medications Discontinued Medications Vancomycin HCl 1,750 mg/ (Sodium Chloride) 535 mls @ 200 mls/hr IV NOW ONE Stop: 11/23/20 18:26 Last Admin: 11/23/20 17:03 Dose: 200 mls/hr Documented by: [id number] Meropenem 500 mg/ Syringe 10 mls @ 2 mls/min IV NOW STA; Protocol Stop: 11/23/20 15:55 Last Admin: 11/23/20 17:03 Dose: 2 mls/min Documented by: [id number] Discharge Plan Visit Data Chief Complaint: Wound Stated Complaint: Infection in 3rd toe on R foot ED Provider: Hung Galdamez Discharge Problem: Osteomyelitis, ESBL (extended spectrum beta-lactamase) producing bacteria infection, HTN (hypertension) Forms Stand Alone Forms: My [facility] Prescriptions Prescriptions: No Action (DME) OneTouch Ultra Blue Test Strip Strip See Dose Instructions .ROUTE .MEDSUPPLY Qty: 300 RF: 3 metoprolol tartrate 25 mg tablet 25 mg PO BID Qty: 180 RF: 3 repaglinide 1 mg tablet 1 mg PO TID Qty: 270 RF: 3 clotrimazole-betamethasone 1-0.05 % cream 1 applic TOP BID PRN (Reason: candidal intertrigo) Qty: 45 RF: 1 cholecalciferol (vitamin D3) 50 mcg (2,000 unit) capsule 2,000 unit PO QAM RF: 0 sitagliptin 100 mg tablet 100 mg PO QAM Qty: 90 RF: 3 cefdinir 300 mg capsule 300 mg PO BID 14 Days Qty: 28 RF: 0 atorvastatin 40 mg tablet 40 mg PO HS Qty: 90 RF: 3 ferrous sulfate 325 mg (65 mg iron) tablet 325 mg PO BID RF: 0 cyanocobalamin (vitamin B-12) 2,500 mcg tablet, sublingual 2,500 mcg SL QAM RF: 0 albuterol sulfate [Ventolin HFA] 90 mcg/actuation HFA aerosol inhaler 1 puffs INH Q6H PRN (Reason: shortness of breath or wheezing) Qty: 8.5 RF: 0 (DME) Aerochamber Plus Z Stat Spacer See Rx Instructions .ROUTE .MEDSUPPLY Qty: 1 RF: 0 metformin 1,000 mg tablet 1,000 mg PO .am RF: 0 metformin 500 mg tablet 1,500 mg PO .q pm RF: 0 magnesium oxide 400 mg magnesium tablet 600 mg PO BID RF: 0 anastrozole 1 mg tablet 1 mg PO QAM RF: 0 aspirin [Aspirin Low Dose] 81 mg Tablet,Delayed Release (Dr/Ec) 81 mg PO QAM RF: 0 calcium carbonate 600 mg calcium (1,500 mg) Tablet 600 mg PO QAM RF: 0 acetaminophen [Tylenol Extra Strength] 500 mg Tablet 1,500 mg PO Q6H PRN (Reason: Pain) RF: 0 montelukast [Singulair] 10 mg tablet 10 mg PO Q OTHER DAY PRN (Reason: asthma) RF: 0 irbesartan 300 mg tablet 300 mg PO QAM RF: 0 escitalopram oxalate 10 mg tablet 10 mg PO QAM RF: 0 Discharge Problem: Osteomyelitis Qualifiers: Osteomyelitis type: unspecified type Osteomyelitis location: unspecified site Qualified Code(s): M86.9 - Osteomyelitis, unspecified HTN (hypertension) Qualifiers: Hypertension type: unspecified Qualified Code(s): I10 - Essential (primary) hypertension
[2020-11-23] MEDS ORDERED: CEFEPIME 2,000 MG/20 ML VIAL IV STA (15:46)
[2020-11-23] MEDS ORDERED: VANCOMYCIN CONSULT ACTIVE PRN (15:46)
[2020-11-23] MEDS ORDERED: VANCOMYCIN HCL 1,750 MG in SODIUM CHLORIDE 0.9% 500 ML IV ONE (15:46)
[2020-11-23] MEDS ORDERED: MEROPENEM 500 MG in SYRINGE 0 ML IV STA (15:51)
--- NOTE | 2020-11-23 16:41 | XRay Report ---
XR toe(s) RT min 2V CLINICAL HISTORY: Right third toe ulcer. Assess for a pneumonitis. COMPARISON STUDY: Right foot 10/06/2020. FINDINGS: There is a 7 mm focal skin ulceration at the distal right third toe. There appears be subtl e erosive change at the distal tuft. Therefore, this likely represents an osteomyelitis. IMPRESSION: Subtle erosive change at the distal tuft of the right third toe due to the focal skin ul ceration. Therefore, this likely represents a an osteomyelitis. ACT 112: Negative or not required by law. Electronically signed by: Sohan Way M.D. 11/23/2020 4:40 PM
[2020-11-23 17:22] LABS: Basophils # (auto) 0.07 K/uL (0-0.2); Basophils % (auto) 0.8 %; Eosinophils # (auto) 0.65 K/uL (0-0.5); Eosinophils % (auto) 7.2 %; Hematocrit (blood only) 37.7 % (37-47); Hemoglobin 12.7 g/dL (12.0-16.0); Immature Granulocytes # (auto) 0.01 K/uL (0.00-0.02); Immature Granulocytes % (auto) 0.1 %; Lymphocytes # (auto) 1.67 K/uL (1.2-3.4); Lymphocytes % (auto) 18.4 %; Mean Corpuscular Hemoglobin 29.1 pg (25-34); Mean Corpuscular Hgb Conc 33.7 g/dL (32-36); Mean Corpuscular Volume 86.3 fL (80-100); Mean Platelet Volume 9.4 fL (7.4-10.4); Monocytes # (auto) 0.67 K/uL (0.11-0.59); Monocytes % (auto) 7.4 %; Neutrophils # (auto) 6.02 K/uL (1.4-6.5); Neutrophils % (auto) 66.1 %; Platelet Count 303 K/uL (130-400); RDW Coefficient of Variation 13.9 % (11.5-14.5); RDW Standard Deviation 43.7 fL (36.4-46.3); Red Blood Count 4.37 M/uL (4.2-5.4); White Blood Count 9.09 K/uL (4.8-10.8)
[2020-11-23 17:41] LABS: Albumin Level 3.9 gm/dl (3.4-5.0); BUN Creatinine Ratio 20.4 (10-20); Calcium 10.6 mg/dl (8.5-10.1); Creatinine Clr Calc Pharmacy 49.8 ml/min; Est GFR (African American) 55.6; Potassium 4.5 mmol/L (3.5-5.1)
[2020-11-23 17:43] LABS: Albumin Globulin Ratio 0.9 (0.9-2); Bilirubin,Total 0.6 mg/dl (0.2-1); Globulin 4.3 gm/dl (2.5-4.0); Total Protein 8.2 gm/dl (6.4-8.2)
--- NOTE | 2020-11-23 19:50 | History & Physical Report ---
Date of Service November 23, 2020 Assessment & Plan (1) Osteomyelitis: Mrs. Parker is a 75 yo woman with a PMHx of type II diabetes mellitus, CAD, and HTN who is being admitted for failed outpatient treatment of a wound on the plantar surface of the R thrid toe, with imaging concerning for osteomyelitis. - recently completed 4 weeks of IV Ertapenem for presumed osteomyelitis of R great toe wound (Culture from 10/06/20 + for ESBL) - Wound culture of R 3rd digit obtained in wound care clinic on 11/16 growing MSSA. Progressive despite 48 hours of cefdinir - XR of R toe showing subtle erosive change at the distal tuft of the third toe, suggestive of osteomyelitis - WBC normal. SIRS criteria not met - received 1 dose of IV vancomycin and meropenem in ED - new wound culture obtained from R third toe on arrival to ED - We will discontinue vancomycin at this time (as culture of R 3rd toe obtained 11/16 growing MSSA) and start Rocephin on 11/24/19. Meropenem discontinued - as patient was adequately treated for ESBL + culture obtained in October 2020. - ID and ortho consults placed - wound care nurse consulted (2) Diabetic ulcer of right foot: - patient currently following with [facility] and diabetic foot clinic for treatment of 3 wounds on R foot - wears diabetic shoes - currently offloading R foot with CAM boot (3) CAD (coronary artery disease): - continue home dose atorvastatin and daily baby ASA (4) Type 2 diabetes mellitus: - HbA1c at goal for age at 7.2 (10/06/20) - hold oral home anti-glycemics - Lantus + sliding scale while inpatient - on ARB and statin - carb consistent, heart healthy diet when not NPO (5) HTN (hypertension): - continue home irbesartan - continue home metoprolol tartrate (6) CKD (chronic kidney disease) stage 3, GFR 30-59 ml/min: - Cr 1.12 on admission - GFR 48 (7) Breast cancer: - continue home anastrazole (8) Depression: - continue home escitalopram Dispo: Med/Surg Diet: NPO after midnight in the event of possible procedure (per ortho) DVT ppx: Heparin Code: Full, I discussed with patient History of Present Illness Primary Care Provider: Abimael Vargas MD Mrs. Parker is a 75 yo woman with a PMHx of type II diabetes mellitus, CAD, and HTN who was referred to the ED by [facility] due to concerns for developing cellulitis and possible osteomyelitis of the right third toe despite treatment with 48 hours of cefdinir. Mrs. Parker follows with wound care clinic and diabetic foot clinic for treatment of 3 R foot ulcers. She does wear diabetic shoes, except in the summer time she wears water shoes around her pool. Of note, she was started on 4 week course of IV Ertapenem (US guided peripheral IV line) in early October 2020 for suspected osteomyelitis of the R great toe (completed 2 weeks ago). MRI of the R foot was obtained during the October hospital stay - although it did not show definitive evidence of bone involvement, a tendon was exposed through the wound, so she was treated for presumed osteomyelitis. Mrs. Parker did have SHERWIN and a bilateral lower extremity duplex study during her October hospital admission, which showed diffuse plaque of the lower legs without arterial occlusion. She has been offloading her R foot with a CAM walker for the past 6 weeks. No allergies to antibiotics. Social Hx: 10 pack year history of cigarette smoking, quit in 1978 In the ED she was afebrile with a normal HR and BP. Her WBC was not elevated. Cr normal. Wound culture was obtained. XR of R foot showed subtle erosive change at the distal tuft of the third toe, suggestive of osteomyelitis. She was given 1 dose of IV meropenem and vancomycin. Allergies Allergy/AdvReac Type Severity Reaction Status Date / Time benzonatate Allergy Unknown PATIENT IS Verified 11/23/20 15:43 UNAWARE OF REACTION WAS PLACED ON CHART propoxyphene Allergy Unknown PATIENT IS Verified 11/23/20 15:43 UNAWARE OF REACTION WAS PLACED ON CHART codeine AdvReac Intermediate NAUSEA/VOMI Verified 11/23/20 15:43 TING Home Medications Medication Instructions Recorded Confirmed Type cyanocobalamin (vitamin B-12) 2,500 mcg SL QAM tab 07/29/19 11/28/20 History 2,500 mcg sublingual tablet ferrous sulfate 325 mg (65 mg 325 mg PO BID tab 07/29/19 11/28/20 History iron) tablet atorvastatin 40 mg tablet 40 mg PO HS #90 tab 11/11/19 11/28/20 Rx albuterol sulfate 90 mcg/actuation 1 puffs INH Q6H PRN #8.5 gm 12/14/19 11/28/20 Rx aerosol inhaler inhalational spacing device #1 ea 12/14/19 11/28/20 Rx blood sugar diagnostic #300 ea 04/20/20 11/28/20 Rx anastrozole 1 mg PO QAM 06/21/20 11/28/20 History aspirin [Aspirin Low Dose] 81 mg PO QAM 06/21/20 11/28/20 History calcium carbonate 600 mg PO QAM 06/21/20 11/28/20 History metoprolol tartrate 25 mg tablet 25 mg PO BID #180 tab 06/29/20 11/28/20 Rx repaglinide 1 mg tablet 1 mg PO TID #270 tab 07/06/20 11/28/20 Rx clotrimazole-betamethasone 1 1 applic TOP BID PRN #45 g 08/01/20 11/28/20 Rx %-0.05 % topical cream escitalopram oxalate 10 mg PO QAM 10/06/20 11/28/20 History irbesartan 300 mg PO QAM 10/06/20 11/28/20 History montelukast [Singulair] 10 mg PO Q OTHER DAY PRN 10/06/20 11/28/20 History cholecalciferol (vitamin D3) 50 2,000 unit PO QAM cap 10/12/20 11/28/20 History mcg (2,000 unit) capsule magnesium oxide 600 mg PO BID tab 10/17/20 11/28/20 History metformin 1,000 mg tablet 1,000 mg PO .am tab 10/17/20 11/28/20 History metformin 500 mg tablet 1,500 mg PO .q pm tab 10/17/20 11/28/20 History sitagliptin 100 mg tablet 100 mg PO QAM #90 tab 11/13/20 11/28/20 Rx acetaminophen [Tylenol Extra 1,000 mg PO Q6H PRN #0 tab 11/27/20 11/28/20 Rx Strength] amlodipine [Norvasc] 2.5 mg PO QAM #15 tab 11/27/20 11/28/20 Rx cephalexin [Keflex] 500 mg PO Q6H 7 Days #28 cap 11/27/20 11/28/20 Rx Past Med/Surg History Medical History Anemia Breast cancer CAD (coronary artery disease) CKD (chronic kidney disease) stage 3, GFR 30-59 ml/min COPD with asthma Diabetic peripheral neuropathy associated with type 2 diabetes mellitus Dyslipidemia History of asthma History of cough History of diabetic ulcer of foot History of duodenal ulcer History of edema History of impacted cerumen History of psoriasis HTN (hypertension) Non-occlusive coronary artery disease Sleep apnea Type 2 diabetes mellitus Surgical History H/O mastectomy History of colonoscopy History of esophagogastroduodenoscopy History of removal of Port-a-Cath central IV port placement--Dr. Sorto 01/08/2016 removal-04/07/18 S/P foot surgery Family History Unknown Congestive heart failure Mother Congestive heart failure Sister Hypertension Diabetes Hyperlipidemia Social History Smoking Status: Former smoker Second Hand Exposure: No; Hx Alcohol Use: No Hx Substance Use: No Preferred Language: Montserratian Communication Ability: Effective Visual Impairment: Limited Hearing Ability: Normal Dipping Machine Operator Required: No Beliefs That Will Affect Care: None marital status: Current Living Situation: Alone current occupational status: retired Feels Safe at Home: Yes Childhood Exposure to Second-Hand Smoke: Yes caffeine: Yes Dental Care, Regularly: Yes Physical Activity Frequency: 3-4 Times per Week Seatbelt Use: always Sunscreen Use: No Assistive Devices: Glasses and Walker Review of Systems Constitutional: no fever and no chills Physical Exam Constitutional: WD/WN, vitals as above cooperative; no acute distress Eyes: + anicteric sclerae ENMT: external ear and nose normal, oropharynx normal Neck: normal visual inspection and trachea midline Respiratory: normal respiratory effort, lungs clear to auscultation Auscultation: no crackles, no rales and no wheezes Cardiovascular: RRR, no murmur, no edema Heart Sounds: normal S1 and normal S2 Vessels: normal carotid upstroke; no carotid bruit Extremities: + pedal edema (+1 b/l) Gastrointestinal (Abdomen): normal bowel sounds, soft, nontender, no hepatosplenomegaly Skin: no rashes, warm and dry + wound + R third toe is swollen and erythematous. Wound on distal aspect of plantar surface. non-tender to palpati on. + wound on plantar aspect of R great toe. non-tender to palpation. + wound on dorsum of midfoot. non-tender to palpation. Psychiatric: A+Ox3, euthymic affect Results & Data Results & Data ([facility]) Vital Signs (Past 12 Hours) Vital Signs Temp Pulse Resp BP Pulse Ox 11/23/20 19:00 67 21 174/74 H 96 11/23/20 18:30 61 14 145/68 H 96 11/23/20 18:00 60 14 136/70 95 11/23/20 17:30 63 12 154/66 H 96 11/23/20 17:10 63 16 151/67 H 97 11/23/20 17:05 95 11/23/20 14:39 35.7 C L 81 18 182/68 H 97 Supervising Physician Co-Signing Physician Notes I personally saw and examined the patient. I verified all aguilera points and agree with Resident Physician Dr Delarosa with the following exceptions and/or additions: 75 year old female with cellulitis and osteomyelitis right 3rd toe. Prior culture positive osteomyelitis right great toe with MSSA and ESBL however finished full course of antibiotics for this. Recent wound culture MSSA. O/E Non septic appearing. Chest CTAB. HS 1+2, RR, no murmurs, Cap refil < 2 s in toes. Cellulitis to end of right 3rd toe surrounding unstageable ulcer on tip A/P Osteomyelitis - Given full treatment for ESBL no need to cover for this. No need for MRSA coverage as no history of this. IV ceftriaxone 2g IV daily. Consult orthopedics. PAD - Left extremity will need vascular f/u however no claudication or wound healing recently. Resident Activity Tracking Resident Involvement: Resident Care Provided Care Provided: Adult Hospital Medicine (1) HTN (hypertension) Hypertension type: unspecified Qualified Code(s): I10 - Essential (primary) hypertension (2) Osteomyelitis Osteomyelitis location: unspecified site Osteomyelitis type: unspecified type Qualified Code(s): M86.9 - Osteomyelitis, unspecified
[2020-11-23] MEDS ORDERED: GLUCOSE 40% GEL 15 GM TUBE PO PRN (21:09)
[2020-11-23] MEDS ORDERED: DEXTROSE 50% 50 ML SYRINGE IV PRN (21:09)
[2020-11-23] MEDS ORDERED: GLUCAGON FOR INJ 1 MG VIAL SQ PRN (21:09)
[2020-11-23] MEDS ORDERED: ONDANSETRON INJ 2 MG/ML 2 ML VIAL IV PRN (21:09)
[2020-11-23] MEDS ORDERED: GLUCOSE 10 TABS/TUBE PO PRN (21:09)
[2020-11-23] MEDS ORDERED: CARBOHYDRATES FOR HYPOGLYCEMIA PO PRN (21:09)
[2020-11-23] MEDS ORDERED: MONTELUKAST SODIUM 10 MG TABLET PO PRN (21:09)
[2020-11-23] MEDS ORDERED: INSULIN ASPART 100 UNITS/ML 3 ML PEN SC SCH (22:00)
[2020-11-23] MEDS: FERROUS SULFATE 325 MG TAB PO SCH (22:45)
[2020-11-23] MEDS: ATORVASTATIN 40 MG TAB PO SCH (22:46)
[2020-11-23] MEDS: MAGNESIUM OXIDE 400 MG TAB PO SCH (22:46)
[2020-11-23] MEDS: METOPROLOL TARTRATE 25 MG TAB PO SCH (22:47)
[2020-11-23] MEDS: HEPARIN SOD 5,000 UNIT/0.5 ML VIAL SQ SCH (22:47)
[2020-11-23] MEDS: INSULIN GLARGINE SOLOSTAR 100 UNITS/ML 3 ML PEN SC SCH (22:49)
[2020-11-24] MEDS ORDERED: Nursing to Pharmacy Communication SCH ×2 (04:00→16:00)
[2020-11-24 06:04] LABS: Basophils # (auto) 0.08 K/uL (0-0.2); Eosinophils # (auto) 0.57 K/uL (0-0.5); Eosinophils % (auto) 7.4 %; Hematocrit (blood only) 33.5 % (37-47); Hemoglobin 11.2 g/dL (12.0-16.0); Immature Granulocytes # (auto) 0.02 K/uL (0.00-0.02); Immature Granulocytes % (auto) 0.3 %; Lymphocytes # (auto) 2.13 K/uL (1.2-3.4); Lymphocytes % (auto) 27.6 %; Mean Corpuscular Hemoglobin 28.5 pg (25-34); Mean Corpuscular Hgb Conc 33.4 g/dL (32-36); Mean Corpuscular Volume 85.2 fL (80-100); Mean Platelet Volume 9.5 fL (7.4-10.4); Monocytes # (auto) 0.74 K/uL (0.11-0.59); Monocytes % (auto) 9.6 %; Neutrophils # (auto) 4.19 K/uL (1.4-6.5); Neutrophils % (auto) 54.1 %; Platelet Count 260 K/uL (130-400); RDW Coefficient of Variation 13.9 % (11.5-14.5); RDW Standard Deviation 43.1 fL (36.4-46.3); Red Blood Count 3.93 M/uL (4.2-5.4); White Blood Count 7.73 K/uL (4.8-10.8)
[2020-11-24] MEDS: INSULIN ASPART 100 UNITS/ML 3 ML PEN SC SCH ×4 (06:14→20:55)
[2020-11-24] MEDS: SODIUM CHLORIDE 0.9% 1000ML 1,000 ML IV SCH ×2 (06:17→14:23)
[2020-11-24] MEDS: IRBESARTAN 150 MG TAB PO SCH (09:27)
[2020-11-24] MEDS: METOPROLOL TARTRATE 25 MG TAB PO SCH ×2 (09:28→20:50)
[2020-11-24] MEDS: ASPIRIN 81 MG ECTAB PO SCH (09:28)
[2020-11-24] MEDS: ANASTROZOLE 1 MG TAB PO SCH (09:28)
[2020-11-24] MEDS: CYANOCOBALAMIN (VITAMIN B-12) 2,500 MCG TAB.SUBL SL SCH (09:28)
[2020-11-24] MEDS: MAGNESIUM OXIDE 400 MG TAB PO SCH ×2 (09:28→20:50)
[2020-11-24] MEDS: ESCITALOPRAM OXALATE 10 MG TAB PO SCH (09:28)
[2020-11-24] MEDS: CALCIUM 600MG + VIT D 400 IU TAB PO SCH (09:30)
[2020-11-24] MEDS: CHOLECALCIFEROL 1,000 UNITS 25 MCG TAB PO SCH (09:30)
[2020-11-24] MEDS: FERROUS SULFATE 325 MG TAB PO SCH ×2 (09:30→20:48)
[2020-11-24] MEDS: INSULIN GLARGINE SOLOSTAR 100 UNITS/ML 3 ML PEN SC SCH ×2 (10:03→20:52)
[2020-11-24] MEDS: HEPARIN SOD 5,000 UNIT/0.5 ML VIAL SQ SCH ×2 (10:03→20:49)
[2020-11-24] MEDS ORDERED: cefTRIAXone SODIUM 2,000 MG in DEXTROSE 5% 50 ML IV SCH ×2 (16:00→20:00)
--- NOTE | 2020-11-24 16:44 | Orthopedic Consultation ---
Date of Service November 24, 2020 Assessment & Plan (1) Diabetic ulcer of right foot: Leila is doing with diabetic foot ulcers of her right foot. She has 2 ulcers around the great toe and an ulcer on the tip of the third toe. The one on the third toe was concerning for osteomyelitis. She obviously has poor circulation. She has poor skin quality around the foot. Before I do an amputation I want a make sure that we can optimize her blood flow and circulation to be sure that no further amputations are necessary. I am going to obtain an MRI of her right foot. We can compared to the last MRI obtained 6 weeks ago on October 06, 2020. I also recommend a vascular consultation. Would like to know if there is anything they can do to help improve blood flow to her right foot. If we do need to do an amputation I need to make sure it is successful and necessary. She was actually able to heal the ulcers around her great toe over the past 4 weeks. I will wait to see the MRI results of her foot as well as input from the vascular team before we decide whether amputation would be beneficial or not. I personally order the MRI of her right foot. I will leave it up to the admitting physician to order the consultation for the vascular team. I will continue following her closely. If you have any questions in the meantime, please feel free to contact me privately on my cell phone at [phone]. History of Present Illness Reason for Consultation: Diabetic foot ulcers right foot. Requesting Physician: . Attending Physician: Jabier Toledo DO Leila is a pleasant 75-year-old female whose been dealing with more recent diabetic foot ulcers. I initially saw her in consultation in the hospital about 6 weeks ago for 2 ulcers on her right great toe. MRI at that time did not show any significant abscess or osteomyelitis. She has been treated with wound care and antibiotics. Those wounds do appear to be healing some. Unfortunately she has been dealing with an ulceration now in the tip of her right third toe. I Reviewed the previous wound images over the past week and it seems to be improving some, however an x-ray was done upon arrival at the hospital and there was some concern for osteomyelitis. She was started on IV antibiotics. She was seen via telemedicine consult with infectious disease. Infectious disease recommend possible toe amputation. Unfortunately, her skin quality does not appear very good. She is dealing with multiple diabetic foot ulcers. The ones on her great toe are healing but the one on her third toe is improving but may be involving the bone. Orthopedics was consulted to evaluate and treat.. Allergies Allergy/AdvReac Type Severity Reaction Status Date / Time benzonatate Allergy Unknown PATIENT IS Verified 11/23/20 15:43 UNAWARE OF REACTION WAS PLACED ON CHART propoxyphene Allergy Unknown PATIENT IS Verified 11/23/20 15:43 UNAWARE OF REACTION WAS PLACED ON CHART codeine AdvReac Intermediate NAUSEA/VOMI Verified 11/23/20 15:43 TING Home Medications Medication Instructions Recorded Confirmed Type cyanocobalamin (vitamin B-12) 2,500 mcg SL QAM tab 07/29/19 11/23/20 History 2,500 mcg sublingual tablet ferrous sulfate 325 mg (65 mg 325 mg PO BID tab 07/29/19 11/23/20 History iron) tablet atorvastatin 40 mg tablet 40 mg PO HS #90 tab 11/11/19 11/23/20 Rx albuterol sulfate 90 mcg/actuation 1 puffs INH Q6H PRN #8.5 gm 12/14/19 11/23/20 Rx aerosol inhaler inhalational spacing device #1 ea 12/14/19 11/23/20 Rx blood sugar diagnostic #300 ea 04/20/20 11/23/20 Rx anastrozole 1 mg PO QAM 06/21/20 11/23/20 History aspirin [Aspirin Low Dose] 81 mg PO QAM 06/21/20 11/23/20 History calcium carbonate 600 mg PO QAM 06/21/20 11/23/20 History metoprolol tartrate 25 mg tablet 25 mg PO BID #180 tab 06/29/20 11/23/20 Rx repaglinide 1 mg tablet 1 mg PO TID #270 tab 07/06/20 11/23/20 Rx clotrimazole-betamethasone 1 1 applic TOP BID PRN #45 g 08/01/20 11/23/20 Rx %-0.05 % topical cream acetaminophen [Tylenol Extra 1,500 mg PO Q6H PRN 10/06/20 11/23/20 History Strength] escitalopram oxalate 10 mg PO QAM 10/06/20 11/23/20 History irbesartan 300 mg PO QAM 10/06/20 11/23/20 History montelukast [Singulair] 10 mg PO Q OTHER DAY PRN 10/06/20 11/23/20 History cholecalciferol (vitamin D3) 50 2,000 unit PO QAM cap 10/12/20 11/23/20 History mcg (2,000 unit) capsule magnesium oxide 600 mg PO BID tab 10/17/20 11/23/20 History metformin 1,000 mg tablet 1,000 mg PO .am tab 10/17/20 11/23/20 History metformin 500 mg tablet 1,500 mg PO .q pm tab 10/17/20 11/23/20 History sitagliptin 100 mg tablet 100 mg PO QAM #90 tab 11/13/20 11/23/20 Rx cefdinir 300 mg capsule 300 mg PO BID 14 Days #28 cap 11/20/20 11/23/20 Rx Past Med/Surg History Medical History Anemia Breast cancer CAD (coronary artery disease) CKD (chronic kidney disease) stage 3, GFR 30-59 ml/min COPD with asthma Diabetic peripheral neuropathy associated with type 2 diabetes mellitus Dyslipidemia History of asthma History of cough History of diabetic ulcer of foot History of duodenal ulcer History of edema History of impacted cerumen History of psoriasis HTN (hypertension) Non-occlusive coronary artery disease Sleep apnea Type 2 diabetes mellitus Surgical History H/O mastectomy History of colonoscopy History of esophagogastroduodenoscopy History of removal of Port-a-Cath central IV port placement--Dr. Sorto 01/08/2016 removal-04/07/18 S/P foot surgery Family History Unknown Congestive heart failure Mother Congestive heart failure Sister Hypertension Diabetes Hyperlipidemia Social History Smoking Status: Former smoker Second Hand Exposure: No; Hx Alcohol Use: No Hx Substance Use: No Preferred Language: [place] Communication Ability: Effective Visual Impairment: Limited Hearing Ability: Normal Animal Attendants And Trainers Required: No Beliefs That Will Affect Care: None marital status: Current Living Situation: Alone current occupational status: retired Other Information That Helps Us Care for You: No Feels Safe at Home: Yes Safety Concerns: Feels Safe At This Time Childhood Exposure to Second-Hand Smoke: Yes caffeine: Yes Dental Care, Regularly: Yes Physical Activity Frequency: 3-4 Times per Week Seatbelt Use: always Sunscreen Use: No Assistive Devices: Cane Review of Systems All systems reviewed & are unremarkable except as noted in HPI & below. Physical Exam On physical examination of the right foot, there is not much air erythema. The wound on the plantar aspect of the MCP joint of the right great toe seems to be healing. The wound under the flexor crease of the right great toe seems to be healing as well. There is an eschar area on the tip of the right third toe. There is a little erythema around the toe and a little bit of swelling. She does have motion of her toes. She really does not have any pain. She has very scaly skin. . Constitutional WD/WN, vitals as above Eyes PERRL, conjunctivae normal, anicteric sclerae ENMT external ear and nose normal, oropharynx normal Neck trachea midline, no thyromegaly Respiratory normal respiratory effort Cardiovascular RRR, no murmur, no edema Gastrointestinal (Abdomen) normal bowel sounds, soft, nontender, no hepatosplenomegaly Psychiatric A+Ox3, euthymic affect Results & Data Results & Data Laboratory Results Lab values reviewed show a normal white blood cell count and she is afebrile. Her H&H appear within normal limits. Her glucose is running high and her last A1c was 7.2 from October 06, 2020. . Diagnostic Findings X-rays of the right foot were reviewed and there is a little bit of scalloping on the plantar aspect of the distal phalanx of the right third toe. This could be concerning for osteomyelitis but is difficult to tell. . PG Care Time/CCT Total # of Minutes Spent Total Time Spent with Patient: Total time spent is greater than 50% in coordination of care (as documented) at patient's floor/unit and/or counseling patient: Coding Level of Care Code 89027 Inpt Consult Level 4 Diagnoses Diabetic ulcer of right foot E11.621; L97.519
--- NOTE | 2020-11-24 16:50 | Hospitalist Progress Note ---
Date of Service November 24, 2020 Assessment & Plan (1) Osteomyelitis: Mrs. Parker is a 75 yo woman with a PMHx of type II diabetes mellitus, CAD, and HTN who is being admitted for failed outpatient treatment of a wound on the plantar surface of the R thrid toe, with imaging concerning for osteomyelitis. - recently completed 4 weeks of IV Ertapenem for presumed osteomyelitis of R great toe wound (Culture from 10/06/20 + for ESBL) - Wound culture of R 3rd digit obtained in wound care clinic on 11/16 growing MSSA. Progressive despite 48 hours of cefdinir - XR of R toe showing subtle erosive change at the distal tuft of the third toe, suggestive of osteomyelitis - No leukocytosis - new wound culture obtained from R third toe on arrival to ED - ID consulted - recommends change to cefazolin, can resume vancomycin if culture shows MRSA. Recommends amputation and then 5-7 days of Keflex 500 mg qid post amputation if residual soft tissue infection is noted post amputation - wound care nurse consulted - Ortho consult - recommends MRI and vascular consult before deciding on surgical intervention (2) Diabetic ulcer of right foot: - patient currently following with [facility] and diabetic foot clinic for treatment of 3 wounds on R foot - wears diabetic shoes - currently offloading R foot with CAM boot - has bilateral scratches on the top of her feet due to CAM boot - will need to monitor these wounds (3) CAD (coronary artery disease): - continue home dose atorvastatin and daily baby ASA (4) Type 2 diabetes mellitus: - HbA1c at goal for age at 7.2 (10/06/20) - hold oral home anti-glycemics - Lantus + sliding scale while inpatient - on ARB and statin - carb consistent, heart healthy diet when not NPO (5) HTN (hypertension): - continue home irbesartan - continue home metoprolol tartrate (6) CKD (chronic kidney disease) stage 3, GFR 30-59 ml/min: - Stable, avoid nephrotoxins where possible (7) Breast cancer: - continue home anastrazole (8) Depression: - continue home escitalopram Dispo: Med/Surg Diet: NPO after midnight in the event of possible procedure (per ortho) DVT ppx: Heparin Code: Full, I discussed with patient (9) COPD with asthma: Not in exacerbation at this time. Continue home albuterol prn PFT's 11/23/2019: Moderate obstructive lung dysfunction. Significant bronchodilator response. Normal DLCO. Normal lung volumes. (10) DVT prophylaxis: Heparin subq Admission and Anticipated Discharge Date Admission Date: November 23, 2020 Subjective Ms. Parker is doing well, no complaints,. Foot wound not particularly painful Review of Systems Constitutional: no fever, no chills and no body aches Respiratory: no cough and no dyspnea Cardiovascular: no chest pain, no dyspnea and no palpitations Gastrointestinal: no abdominal pain, no nausea and no vomiting Genitourinary: no dysuria and no urinary hesitancy Musculoskeletal: no back pain and no joint pain Integumentary: no rash Physical Exam Physical Exam: General: no distress Eyes: normal inspection, PERLL Respiratory: chest non tender, clear to auscultation, normal breath sounds, no respiratory distress, no accessory muscle use Cardiac: regular rate and rhythm, no rub or gallop, no murmur, no edema, no jvd GI/: active bowel sounds, no abd pain or tenderness, soft, non distended Extremities: normal range of motion, normal strength, non tender Neuro/Psych: alert and oriented x 3, normal mood and affect Skin: normal color, dry, Right third toe with plantar dried black wound and erythema/edema of the toe, right great toe with scabbed/slough area plantar surface of distal joint Results & Data Results & Data ([facility]) Vital Signs (Past 12 Hours) Vital Signs Temp Pulse Resp BP Pulse Ox 11/24/20 15:06 36.9 C 62 20 146/73 H 95 11/24/20 09:32 60 128/75 94 11/24/20 07:29 36.7 C 62 18 126/65 96 PG Care Time/CCT Total # of Minutes Spent Total Time Spent with Patient: Total time spent is greater than 50% in coordination of care (as documented) at patient's floor/unit and/or counseling patient: Coding Level of Care Code 86955 Subseq Hosp Care Lvl 2 Diagnoses Osteomyelitis M86.9 Osteomyelitis location: unspecified site Osteomyelitis type: unspecified type Diabetic ulcer of right foot E11.621; L97.519 CAD (coronary artery disease) I25.10 Type 2 diabetes mellitus E11.9 HTN (hypertension) I10 Hypertension type: unspecified CKD (chronic kidney disease) stage 3, GFR 30-59 ml/min N18.3 Breast cancer C50.919 Depression F32.9 COPD with asthma J44.9 DVT prophylaxis Z29.9 (1) Osteomyelitis Osteomyelitis location: unspecified site Osteomyelitis type: unspecified type Qualified Code(s): M86.9 - Osteomyelitis, unspecified (2) HTN (hypertension) Hypertension type: unspecified Qualified Code(s): I10 - Essential (primary) hypertension
[2020-11-24] MEDS: ceFAZolin 2000MG 2,000 MG/15 ML SYR IV SCH (20:48)
[2020-11-24] MEDS: ATORVASTATIN 40 MG TAB PO SCH (20:49)
--- NOTE | 2020-11-24 22:43 | Magnetic Resonance Report ---
MRI OF THE RIGHT FOREFOOT WITHOUT IV CONTRAST CLINICAL HISTORY: Open wound of the third toe. COMPARISON STUDY: Radiographs of the right toes dated 11/23/2020. MRI of the right forefoot dated 10/06. TECHNIQUE: MRI of the right forefoot is performed utilizing various T1 and T2-weighted sequences in t he axial, sagittal, and coronal planes. IV contrast was not administered for this examination. The ex amination is degraded by motion artifact. FINDINGS: There is marrow edema identified throughout the third distal phalanx with drop in signal on the T1-weighted sequences. Subtle erosive change is seen involving the tuft of the third distal phal anx and the appearance is typical for osteomyelitis. Overlying soft tissue edema is noted and there i s a wound in the third toe. No organized fluid collection is seen to indicate abscess. Nonspecific ma rrow edema is again seen within the first distal phalanx. This is unchanged from 10/06/2020 examinatio n. There is no corresponding bony erosion. No additional similar-appearing foci of marrow abnormality are seen throughout the forefoot. Degenerative change is seen at the first metatarsophalangeal and i nterphalangeal joints, as well as throughout the tarsometatarsal joints. Mild diffuse superficial and deep soft tissue edema throughout the forefoot suggests cellulitis. There is nonspecific myositis of the regional musculature. Again seen is high-grade tearing of the distal flexor hallucis longus tend on. Hammertoe deformities are noted. IMPRESSION: 1. Findings are consistent with osteomyelitis of the third distal phalanx with overlying wound and ce llulitis. This represent a change from the 10/06/2020 examination. 2. Nonspecific marrow edema within the first distal phalanx is unchanged from the 10/06/2020 examinati on. No erosive change is seen to confirm osteomyelitis. 3. High-grade tearing of the distal flexor hallucis longus tendon is unchanged. 4. Diffuse superficial and deep soft tissue is again seen throughout the forefoot. Electronically signed by: Mal Burkett M.D. 11/24/2020 10:41 PM
[2020-11-25] MEDS: ceFAZolin 2000MG 2,000 MG/15 ML SYR IV SCH ×3 (05:02→20:52)
--- NOTE | 2020-11-25 07:46 | Orthopedic Progress Note ---
Date of Service November 25, 2020 Assessment & Plan (1) Osteomyelitis: The MRI does show osteomyelitis of the distal phalanx of the right third toe. This is a new finding when compared to the previous MRI in October. She has some edema in the bone of her first toe, however, it does not appear to be an osteomyelitis. I would like to proceed with an amputation of her right third toe. We will do the case first thing Friday morning. She understands the risks, benefits, and alternatives to the procedures like to proceed. I will make her n.p.o. past midnight tonight. I would still like a vascular consultation to ensure the best blood flow to her right lower extremity, however, it will not delay the amputation. Chato Dee was seen and examined at bedside this morning. Overall her status is unchanged. She did have her MRI last evening. She has not been seen by the vascular team yet. She has no new complaints. . Review of Systems All systems reviewed & are unremarkable except as noted in HPI & below. Physical Exam On physical examination of the right foot, there is a ulceration over the tip of the third toe. She does not have any pain in the area. There is little bit of erythema. The wounds on the great toe seem to be healing.. Constitutional WD/WN, vitals as above Eyes PERRL, conjunctivae normal, anicteric sclerae ENMT external ear and nose normal, oropharynx normal Neck trachea midline, no thyromegaly Respiratory normal respiratory effort Cardiovascular RRR, no murmur, no edema Gastrointestinal (Abdomen) normal bowel sounds, soft, nontender, no hepatosplenomegaly Psychiatric A+Ox3, euthymic affect Results & Data Results & Data Laboratory Results . Diagnostic Findings MRI images reviewed by myself do show signs of erosion and osteomyelitis of the tip of the third toe. There is a little bit of edema in the first toe but no definitive signs of osteomyelitis.. PG Care Time/CCT Total # of Minutes Spent Total Time Spent with Patient: Total time spent is greater than 50% in coordination of care (as documented) at patient's floor/unit and/or counseling patient: Coding Level of Care Code 51245 Subseq Hosp Care Lvl 2 (57 - DECISION FOR SURGERY) Diagnoses Osteomyelitis M86.9 Osteomyelitis location: unspecified site Osteomyelitis type: unspecified type (1) Osteomyelitis Osteomyelitis location: unspecified site Osteomyelitis type: unspecified type Qualified Code(s): M86.9 - Osteomyelitis, unspecified
--- NOTE | 2020-11-25 08:15 | Hospitalist Progress Note ---
Date of Service November 25, 2020 Assessment & Plan (1) Osteomyelitis: Mrs. Parker is a 75 yo woman with a PMHx of type II diabetes mellitus, CAD, and HTN who is being admitted for failed outpatient treatment of a wound on the plantar surface of the R thrid toe, with imaging concerning for osteomyelitis. - recently completed 4 weeks of IV Ertapenem for presumed osteomyelitis of R great toe wound (Culture from 10/06/20 + for ESBL) - Wound culture of R 3rd digit obtained in wound care clinic on 11/16 growing MSSA. Progressive despite 48 hours of cefdinir - XR of R toe showing subtle erosive change at the distal tuft of the third toe, suggestive of osteomyelitis - No leukocytosis - new wound culture obtained from R third toe on arrival to ED Wound culture Staph aureus, sensitivities pending - ID consulted - recommends change to cefazolin, can resume vancomycin if culture shows MRSA. Recommends amputation and then 5-7 days of Keflex 500 mg qid post amputation if residual soft tissue infection is noted post amputation - wound care nurse consulted - Ortho consult - recommending surgery on Friday (2) Diabetic ulcer of right foot: - patient currently following with [facility] clinic and diabetic foot clinic for treatment of 3 wounds on R foot - wears diabetic shoes - currently offloading R foot with CAM boot - has bilateral scratches on the top of her feet due to CAM boot - will need to monitor these wounds (3) CAD (coronary artery disease): - continue home dose atorvastatin and daily baby ASA (4) Type 2 diabetes mellitus: - HbA1c at goal for age at 7.2 (10/06/20) - hold oral home anti-glycemics - Lantus + sliding scale while inpatient - on ARB and statin - carb consistent, heart healthy diet when not NPO (5) HTN (hypertension): - continue home irbesartan - continue home metoprolol tartrate Start amlodipine 2.5 mg daily, 1st dose today secondary to continued elevated blood pressure (6) CKD (chronic kidney disease) stage 3, GFR 30-59 ml/min: - Stable, avoid nephrotoxins where possible (7) Breast cancer: - continue home anastrazole (8) Depression: - continue home escitalopram Code: Full, I discussed with patient (9) COPD with asthma: Not in exacerbation at this time. Continue home albuterol prn PFT's 11/23/2019: Moderate obstructive lung dysfunction. Significant bronchodilator response. Normal DLCO. Normal lung volumes. (10) DVT prophylaxis: Heparin subq , hold after midnight Admission and Anticipated Discharge Date Admission Date: November 23, 2020 Subjective No new complaints Pain is well controlled No fevers or chills nausea vomiting Tolerating diet Review of Systems Review of Systems: All systems reviewed & are unremarkable except as noted in Subjective Physical Exam Physical Exam: Constitutional: WD/WN, vitals as above Respiratory: Effort normal, CTA B/L CV: RRR, no murmur, no edema Abdomen: normal bowel sounds, soft, nontender, no hepatosplenomegaly Results & Data Results & Data ([facility]) Vital Signs (Past 12 Hours) Vital Signs Temp Pulse Resp BP Pulse Ox 11/25/20 08:00 36.6 C 71 15 159/76 H 95 11/24/20 23:03 143/83 H 11/24/20 22:49 37.2 C 64 16 98 Laboratory Results Laboratory Results - last 24 hr 11/24/20 11/24/20 11/24/20 05:42 11:44 16:13 POC Glucose 163 H 122 H Hepatitis C Ab Screen Neg 11/24/20 20:44 POC Glucose 193 H Hepatitis C Ab Screen Medications Administered Current Inpatient Medications Anastrozole (Anastrozole 1 Mg Tab) [facility] [place] Stop: 12/24/20 08:59 Last Admin: 11/24/20 09:28 Dose: 1 mg Documented by: Aspirin (Aspirin 81 Mg Ectab) 81 [facility] [place] Stop: 12/24/20 08:59 Last Admin: 11/24/20 09:28 Dose: 81 mg Documented by: Atorvastatin Calcium (Atorvastatin 40 Mg Tab) 40 mg PO [facility] Stop: 12/23/20 21:08 Last Admin: 11/24/20 20:49 Dose: 40 mg Documented by: Cyanocobalamin (Cyanocobalamin (Vitamin B-12) 2,500 Mcg Tab.Subl) 2,500 mcg SL QAM [facility] Stop: 12/24/20 08:59 Last Admin: 11/24/20 09:28 Dose: 2,500 mcg Documented by: Dextrose (Dextrose 50% 50 Ml Syringe) 25 - 50 ml IV UD PRN; Protocol PRN Reason: Hypoglycemia Protocol Stop: 12/23/20 21:08 Escitalopram Oxalate (Escitalopram Oxalate 10 Mg Tab) 10 mg PO QAM [facility] Stop: 12/24/20 08:59 Last Admin: 11/24/20 09:28 Dose: 10 mg Documented by: Ferrous Sulfate (Ferrous Sulfate 325 Mg Tab) 325 mg PO BID [facility] Stop: 12/23/20 21:08 Last Admin: 11/24/20 20:48 Dose: 325 mg Documented by: Glucagon (Glucagon For Inj 1 Mg Vial) 1 mg SQ UD PRN; Protocol PRN Reason: Hypoglycemia Protocol Stop: 12/23/20 21:08 Glucose (Glucose 10 Tabs/Tube) 4 - 8 tabs PO UD PRN; Protocol PRN Reason: Hypoglycemia Protocol Stop: 12/23/20 21:08 Glucose (Glucose 40% Gel 15 Gm Tube) 15 - 30 gm PO UD PRN; Protocol PRN Reason: Hypoglycemia Protocol Stop: 12/23/20 21:08 Heparin Sodium (Porcine) (Heparin Sod 5,000 Unit/0.5 Ml Vial) 5,000 units SQ Q12 [facility] Stop: 12/23/20 21:59 Last Admin: 11/24/20 20:49 Dose: 5,000 units Documented by: Cefazolin Sodium (Ancef 2000mg) 2,000 mg in 15 mls @ 3.75 mls/min IV Q8 [facility]; Protocol Stop: 01/05/21 18:59 Last Admin: 11/25/20 05:02 Dose: 3.75 mls/min Documented by: Insulin Aspart (Insulin Aspart 100 Units/Ml 3 Ml Pen) 0 units SC ACHS [facility] Stop: 12/24/20 16:29 Last Admin: 11/24/20 20:55 Dose: 2 units Documented by: Insulin Glargine (Insulin Glargine Solostar 100 Units/Ml 3 Ml Pen) 8 units SC BID [facility] Stop: 12/23/20 21:59 Last Admin: 11/24/20 20:52 Dose: 8 units Documented by: Irbesartan (Irbesartan 150 Mg Tab) 300 mg PO QAM [facility] Stop: 12/24/20 08:59 Last Admin: 11/24/20 09:27 Dose: 300 mg Documented by: Magnesium Oxide (Magnesium Oxide 400 Mg Tab) 600 mg PO BID [facility] Stop: 12/23/20 21:59 Last Admin: 11/24/20 20:50 Dose: 600 mg Documented by: Metoprolol Tartrate (Metoprolol Tartrate 25 Mg Tab) 25 mg PO BID [facility] Stop: 12/23/20 21:08 Last Admin: 11/24/20 20:50 Dose: 25 mg Documented by: Miscellaneous (Carbohydrates For Hypoglycemia ) 15 - 30 gm PO UD PRN PRN Reason: Hypoglycemia Protocol Stop: 12/23/20 21:08 Montelukast Sodium (Montelukast Sodium 10 Mg Tablet) 10 mg PO Q2D PRN PRN Reason: asthma Stop: 12/23/20 21:08 Multivitamins/Minerals (Calcium 600mg + Vit D 400 Iu Tab) 1 tab PO QAM [facility] Stop: 12/24/20 08:59 Last Admin: 11/24/20 09:30 Dose: 1 tab Documented by: Ondansetron HCl (Ondansetron Inj 2 Mg/Ml 2 Ml Vial) 4 mg IV Q6H PRN PRN Reason: Nausea Stop: 12/23/20 21:08 Vitamin D (Cholecalciferol 1,000 Units 25 Mcg Tab) 2,000 units PO QAM [facility] Stop: 12/24/20 08:59 Last Admin: 11/24/20 09:30 Dose: 2,000 units Documented by: PG Care Time/CCT Total # of Minutes Spent Total Time Spent with Patient: Total time spent is greater than 50% in coordination of care (as documented) at patient's floor/unit and/or counseling patient: Coding Level of Care Code 47748 Subseq Hosp Care Lvl 2 Diagnoses Osteomyelitis M86.9 Osteomyelitis location: unspecified site Osteomyelitis type: unspecified type Diabetic ulcer of right foot E11.621; L97.519 CAD (coronary artery disease) I25.10 Type 2 diabetes mellitus E11.9 HTN (hypertension) I10 Hypertension type: unspecified CKD (chronic kidney disease) stage 3, GFR 30-59 ml/min N18.3 Breast cancer C50.919 Depression F32.9 COPD with asthma J44.9 DVT prophylaxis Z29.9 (1) Osteomyelitis Osteomyelitis location: unspecified site Osteomyelitis type: unspecified type Qualified Code(s): M86.9 - Osteomyelitis, unspecified (2) HTN (hypertension) Hypertension type: unspecified Qualified Code(s): I10 - Essential (primary) hypertension
[2020-11-25] MEDS: MAGNESIUM OXIDE 400 MG TAB PO SCH ×2 (08:52→20:33)
[2020-11-25] MEDS: METOPROLOL TARTRATE 25 MG TAB PO SCH ×2 (08:52→20:32)
[2020-11-25] MEDS: FERROUS SULFATE 325 MG TAB PO SCH ×2 (08:52→20:27)
[2020-11-25] MEDS: CHOLECALCIFEROL 1,000 UNITS 25 MCG TAB PO SCH (08:52)
[2020-11-25] MEDS: IRBESARTAN 150 MG TAB PO SCH (08:53)
[2020-11-25] MEDS: CYANOCOBALAMIN (VITAMIN B-12) 2,500 MCG TAB.SUBL SL SCH (08:53)
[2020-11-25] MEDS: CALCIUM 600MG + VIT D 400 IU TAB PO SCH (08:53)
[2020-11-25] MEDS: ANASTROZOLE 1 MG TAB PO SCH (08:53)
[2020-11-25] MEDS: ESCITALOPRAM OXALATE 10 MG TAB PO SCH (08:53)
[2020-11-25] MEDS: ASPIRIN 81 MG ECTAB PO SCH (08:53)
[2020-11-25] MEDS: INSULIN GLARGINE SOLOSTAR 100 UNITS/ML 3 ML PEN SC SCH ×2 (08:54→20:30)
[2020-11-25] MEDS: HEPARIN SOD 5,000 UNIT/0.5 ML VIAL SQ SCH ×2 (08:55→20:25)
[2020-11-25] MEDS: INSULIN ASPART 100 UNITS/ML 3 ML PEN SC SCH ×4 (08:55→20:41)
[2020-11-25 09:03] LABS: Basophils # (auto) 0.06 K/uL (0-0.2); Basophils % (auto) 0.8 %; Eosinophils # (auto) 0.42 K/uL (0-0.5); Eosinophils % (auto) 5.9 %; Hematocrit (blood only) 36.4 % (37-47); Hemoglobin 12.1 g/dL (12.0-16.0); Immature Granulocytes # (auto) 0.01 K/uL (0.00-0.02); Immature Granulocytes % (auto) 0.1 %; Lymphocytes # (auto) 2.06 K/uL (1.2-3.4); Lymphocytes % (auto) 28.9 %; Mean Corpuscular Hemoglobin 28.3 pg (25-34); Mean Corpuscular Hgb Conc 33.2 g/dL (32-36); Mean Corpuscular Volume 85.2 fL (80-100); Mean Platelet Volume 9.8 fL (7.4-10.4); Monocytes # (auto) 0.59 K/uL (0.11-0.59); Monocytes % (auto) 8.3 %; Neutrophils # (auto) 3.99 K/uL (1.4-6.5); Platelet Count 279 K/uL (130-400); RDW Coefficient of Variation 13.9 % (11.5-14.5); RDW Standard Deviation 43.1 fL (36.4-46.3); Red Blood Count 4.27 M/uL (4.2-5.4); White Blood Count 7.13 K/uL (4.8-10.8)
[2020-11-25 09:27] LABS: BUN Creatinine Ratio 16.1 (10-20); Calcium 9.7 mg/dl (8.5-10.1); Creatinine Clr Calc Pharmacy 48.3 ml/min; Est GFR (African American) 53.9; Est GFR (Non-African American) 46.5; Potassium 4.3 mmol/L (3.5-5.1)
--- NOTE | 2020-11-25 13:18 | Anesthesiology Consultation ---
Date of Service November 25, 2020 Assessment & Plan (1) Encounter for pre-operative examination: History Surgery Operation Date: 11/26/20 07:30 Proposed Procedures p Amputation right 3rd toe(Right) - Jose Lockhart DO Height/Weight Height: 5 ft 6 in Weight: 92 kg Allergies Allergy/AdvReac Type Severity Reaction Status Date / Time benzonatate Allergy Unknown PATIENT IS Verified 11/23/20 15:43 UNAWARE OF REACTION WAS PLACED ON CHART propoxyphene Allergy Unknown PATIENT IS Verified 11/23/20 15:43 UNAWARE OF REACTION WAS PLACED ON CHART codeine AdvReac Intermediate NAUSEA/VOMI Verified 11/23/20 15:43 TING Medications Home Medications Medication Instructions Recorded Confirmed Last Taken cyanocobalamin (vitamin B-12) 2,500 mcg SL QAM tab 07/29/19 11/23/20 11/23/20 2,500 mcg sublingual tablet ferrous sulfate 325 mg (65 mg 325 mg PO BID tab 07/29/19 11/23/20 11/23/20 iron) tablet atorvastatin 40 mg tablet 40 mg PO HS #90 tab 11/11/19 11/23/20 10/14/20 albuterol sulfate 90 mcg/actuation 1 puffs INH Q6H PRN #8.5 gm 12/14/19 11/23/20 Unknown aerosol inhaler inhalational spacing device #1 ea 12/14/19 11/23/20 Unknown blood sugar diagnostic #300 ea 04/20/20 11/23/20 Unknown anastrozole 1 mg PO QAM 06/21/20 11/23/20 11/23/20 aspirin [Aspirin Low Dose] 81 mg PO QAM 06/21/20 11/23/20 11/23/20 calcium carbonate 600 mg PO QAM 06/21/20 11/23/20 10/14/20 metoprolol tartrate 25 mg tablet 25 mg PO BID #180 tab 06/29/20 11/23/20 11/23/20 repaglinide 1 mg tablet 1 mg PO TID #270 tab 07/06/20 11/23/20 11/23/20 clotrimazole-betamethasone 1 1 applic TOP BID PRN #45 g 08/01/20 11/23/20 10/06/20 %-0.05 % topical cream acetaminophen [Tylenol Extra 1,500 mg PO Q6H PRN 10/06/20 11/23/20 10/05/20 21:00 Strength] 1500 mg escitalopram oxalate 10 mg PO QAM 10/06/20 11/23/20 11/23/20 irbesartan 300 mg PO QAM 10/06/20 11/23/20 11/23/20 montelukast [Singulair] 10 mg PO Q OTHER DAY PRN 10/06/20 11/23/20 10/06/20 cholecalciferol (vitamin D3) 50 2,000 unit PO QAM cap 10/12/20 11/23/20 11/23/20 mcg (2,000 unit) capsule magnesium oxide 600 mg PO BID tab 10/17/20 11/23/20 11/23/20 metformin 1,000 mg tablet 1,000 mg PO .am tab 10/17/20 11/23/20 11/23/20 metformin 500 mg tablet 1,500 mg PO .q pm tab 10/17/20 11/23/20 Unknown sitagliptin 100 mg tablet 100 mg PO QAM #90 tab 11/13/20 11/23/20 11/23/20 cefdinir 300 mg capsule 300 mg PO BID 14 Days #28 cap 11/20/20 11/23/20 11/23/20 Active Medications Generic Name Dose Route Start Last Admin Trade Name Areli PRN Reason Stop Dose Admin Anastrozole 1 mg 11/24/20 09:00 11/25/20 08:53 Anastrozole 1 Mg Tab PO 12/24/20 08:59 1 mg QAM [facility]LEX Administration Aspirin 81 mg 11/24/20 09:00 11/25/20 08:53 Aspirin 81 Mg Ectab PO 12/24/20 08:59 81 mg QAM [facility] Administration Atorvastatin Calcium 40 mg 11/23/20 21:09 11/25/20 20:27 Atorvastatin 40 Mg Tab PO 12/23/20 21:08 40 mg HS ALEX Administration Cyanocobalamin 2,500 mcg 11/24/20 09:00 11/25/20 08:53 Cyanocobalamin (Vitamin B-12) 2,500 Mcg Tab.Subl SL 12/24/20 08:59 2,500 mcg QAM ALEX Administration Escitalopram Oxalate 10 mg 11/24/20 09:00 11/25/20 08:53 Escitalopram Oxalate 10 Mg Tab PO 12/24/20 08:59 10 mg QAM [facility]LEX Administration Ferrous Sulfate 325 mg 11/23/20 21:09 11/25/20 20:27 Ferrous Sulfate 325 Mg Tab PO 12/23/20 21:08 325 mg BID ALEX Administration Heparin Sodium (Porcine) 5,000 units 11/23/20 22:00 11/25/20 20:25 Heparin Sod 5,000 Unit/0.5 Ml Vial SQ 12/23/20 21:59 5,000 units Q12 [facility] Administration Cefazolin Sodium 2,000 mg in 15 mls @ 3.75 mls/min 11/24/20 19:00 11/26/20 06:02 Ancef 2000mg IV 01/05/21 18:59 3.75 mls/min Q8 [facility] Administration Protocol Insulin Aspart 0 units 11/26/20 06:00 11/26/20 06:00 Insulin Aspart 100 Units/Ml 3 Ml Pen SC 12/26/20 05:59 1 units Q6 [facility]LEX Administration Insulin Glargine 8 units 11/23/20 22:00 11/25/20 20:30 Insulin Glargine Solostar 100 Units/Ml 3 Ml Pen SC 12/23/20 21:59 8 units BID ALEX Administration Irbesartan 300 mg 11/24/20 09:00 11/25/20 08:53 Irbesartan 150 Mg Tab PO 12/24/20 08:59 300 mg QAM [facility] Administration Magnesium Oxide 600 mg 11/23/20 22:00 11/25/20 20:33 Magnesium Oxide 400 Mg Tab PO 12/23/20 21:59 600 mg BID ALEX Administration Metoprolol Tartrate 25 mg 11/23/20 21:09 11/25/20 20:32 Metoprolol Tartrate 25 Mg Tab PO 12/23/20 21:08 25 mg BID ALEX Administration Multivitamins/Minerals 1 tab 11/24/20 09:00 11/25/20 08:53 Calcium 600mg + Vit D 400 Iu Tab PO 12/24/20 08:59 1 tab QAM [facility]LEX Administration Vitamin D 2,000 units 11/24/20 09:00 11/25/20 08:52 Cholecalciferol 1,000 Units 25 Mcg Tab PO 12/24/20 08:59 2,000 units QAM [facility]LEX Administration NPO Date Last Intake of Fluids: 11/23/20 Time Last Intake of Fluids: 23:59 Date Last Intake of Solids: 11/23/20 Time Last Intake of Solids: 23:59 Past Medical History Medical History Anemia Breast cancer CAD (coronary artery disease) CKD (chronic kidney disease) stage 3, GFR 30-59 ml/min COPD with asthma Diabetic peripheral neuropathy associated with type 2 diabetes mellitus Dyslipidemia History of asthma History of cough History of diabetic ulcer of foot History of duodenal ulcer History of edema History of impacted cerumen History of psoriasis HTN (hypertension) Non-occlusive coronary artery disease Sleep apnea Type 2 diabetes mellitus Past Family History Family History Unknown Congestive heart failure Mother Congestive heart failure Sister Hypertension Diabetes Hyperlipidemia Past Surgical History Surgical History H/O mastectomy History of colonoscopy History of esophagogastroduodenoscopy History of removal of Port-a-Cath central IV port placement--Dr. Sorto 01/08/2016 removal-04/07/18 S/P foot surgery Social History Smoking Status: Former smoker Hx Alcohol Use: No Alcohol type: wine Hx Substance Use: No substance use type: does not use Physical Exam Vital Signs Last Vital Signs Temp 36.6 C 11/26/20 07:17 Pulse 63 11/26/20 07:17 Resp 21 11/26/20 07:17 BP 183/92 H 11/26/20 07:17 Pulse Ox 98 11/26/20 07:17 Testing Laboratory Results 11/26/20 06:41 11/25/20 08:29 11/26/20 11/25/20 05:59 20:40 POC Glucose 151 H 263 H
[2020-11-25] MEDS ORDERED: amLODIPine BESYLATE 5 MG TAB PO ONE (15:30)
[2020-11-25] MEDS: ATORVASTATIN 40 MG TAB PO SCH (20:27)
[2020-11-26] MEDS ORDERED: Nursing to Pharmacy Communication SCH ×2 (02:30→10:00)
[2020-11-26] MEDS ORDERED: INSULIN ASPART 100 UNITS/ML 3 ML PEN SC SCH (06:00)
[2020-11-26] MEDS: ceFAZolin 2000MG 2,000 MG/15 ML SYR IV SCH ×3 (06:02→21:45)
[2020-11-26 06:57] LABS: Hematocrit (blood only) 35.5 % (37-47); Mean Corpuscular Hgb Conc 33.8 g/dL (32-36); Mean Corpuscular Volume 85.7 fL (80-100); Mean Platelet Volume 9.4 fL (7.4-10.4); Platelet Count 255 K/uL (130-400); RDW Coefficient of Variation 13.8 % (11.5-14.5); RDW Standard Deviation 43.1 fL (36.4-46.3); Red Blood Count 4.14 M/uL (4.2-5.4); White Blood Count 7.72 K/uL (4.8-10.8)
[2020-11-26] MEDS ORDERED: LIDOCAINE HCL 2% 2 ML VIAL/AMP(20MG/ML) INFIL ONE (07:10)
[2020-11-26] MEDS ORDERED: PROPOFOL IV EMULSION 10 MG/ML 20 ML VIAL IV ONE (07:10)
[2020-11-26] MEDS ORDERED: MIDAZOLAM HCL 1 MG/ML 2ML VIAL ONE (07:10)
[2020-11-26] MEDS ORDERED: fentaNYL citrate 100 MCG/2 ML VIAL ONE (07:10)
--- NOTE | 2020-11-26 07:42 | History & Physical Bridge Note ---
Date of Service November 26, 2020 History & Physical Bridge Note I have examined the patient, reviewed the History & Physical and in the interval since the performance of the History & Physical I have noted the following changes of clinical significance: no changes noted
[2020-11-26] MEDS ORDERED: fentaNYL citrate 100 MCG/2 ML VIAL IV PRN (08:12)
[2020-11-26] MEDS ORDERED: HYDROmorphone INJ 1 MG/ML SYRINGE IV PRN (08:12)
[2020-11-26] MEDS ORDERED: ePHEDrine sulfate 50 MG/ML AMP IV PRN (08:12)
[2020-11-26] MEDS ORDERED: ONDANSETRON INJ 2 MG/ML 2 ML VIAL IV PRN (08:12)
[2020-11-26] MEDS ORDERED: ATROPINE SULFATE 0.1 MG/ML 10ML SYR IV PRN (08:12)
[2020-11-26] MEDS ORDERED: ONDANSETRON INJ 2 MG/ML 2 ML VIAL ONE (08:25)
--- NOTE | 2020-11-26 08:39 | Operative Report ---
PG Post Operative Report Pre & Post Diagnosis Operation Date: 11/26/20 07:30 Pre-Op Diagnosis: right third toe osteomyelitis Post-Op Diagnosis: right third toe osteomyelitis I identified the patient and participated in the time-out.: Yes Procedure Operation Date: 11/26/20 07:30 Right third toe amputation Surgeon Jose Lockhart DO Dehydrogenation Operator Head None Estimated Blood Loss 20 Findings Consistent with Post-Op Diagnosis Specimens None Complications none Disposition Disposition: Recovery Room Indications Leila is a pleasant 75-year-old female who has been dealing with a long history of diabetes. She has had multiple diabetic foot ulcers. More recently she developed an ulcer to the tip of her right third toe. He was treated by wound care, unfortunately, it went on to develop osteomyelitis. This was confirmed on MRI. After failing conservative treatment, she elected to proceed with a right third toe amputation. Description of Procedure On November 26, 2020 Leila was brought down from her hospital room to the reoperative holding area. The operative extremity was identified and signed. She was given an ankle block. She was taken back to the operating room and laid on the table in supine position. She was put under basic sedation. The right foot was then prepped and draped in sterile fashion. A timeout was done. The patient and the operative extremity was properly identified. An elliptical incision was made around the base of the right third toe. There was a lot of good bleeding at the surgical site. In fact, a Coleridge had to be used to control some of the bleeding. Dissection was taken down to the MTP joint. The third toe was then disarticulated at the MTP joint. The wound was then irrigated. The skin edges were then closed with 4-0 nylon suture. She was then placed in a soft dressing. She was then transferred to a hospital bed and taken to the postanesthesia care unit in stable condition. She tolerated the procedure well. I attest to the content of the Intraoperative Record and any orders documented therein. Any exceptions are noted below.
--- NOTE | 2020-11-26 08:54 | Anesthesiology Progress Note ---
Date of Service November 26, 2020 Anesthesia Post Procedure Vital Signs Vital Signs: Temp Pulse Pulse Resp BP Pulse Ox 11/26/20 08:45 58 L 12 157/70 H 100 11/26/20 08:39 36.1 C L 62 12 150/72 H 99 11/26/20 07:17 36.6 C 63 21 183/92 H 98 11/25/20 23:18 37.0 C 62 16 124/68 95 11/25/20 15:18 36.7 C 64 17 161/77 H 96 Pain Intensity Right 3rd Digit Toe: Pain Intensity: 0 Transfer of Care Handoff Completed per policy Notes Mental Status: alert / awake / arousable and participated in evaluation Patient Amnestic to Procedure: Yes Nausea / Vomiting: adequately controlled Pain: adequately controlled Airway Patency, RR, SpO2: stable & adequate BP & HR: stable & adequate Hydration State: stable & adequate Anesthetic Complications: no major complications apparent and Pt Satisfied with anesthetic care
[2020-11-26] MEDS: amLODIPine BESYLATE 5 MG TAB PO SCH (09:54)
[2020-11-26] MEDS: METOPROLOL TARTRATE 25 MG TAB PO SCH ×2 (09:55→20:26)
[2020-11-26] MEDS: FERROUS SULFATE 325 MG TAB PO SCH ×2 (09:55→20:25)
[2020-11-26] MEDS: ANASTROZOLE 1 MG TAB PO SCH (09:56)
[2020-11-26] MEDS: CHOLECALCIFEROL 1,000 UNITS 25 MCG TAB PO SCH (09:56)
[2020-11-26] MEDS: ASPIRIN 81 MG ECTAB PO SCH (09:56)
[2020-11-26] MEDS: IRBESARTAN 150 MG TAB PO SCH (09:56)
[2020-11-26] MEDS: CYANOCOBALAMIN (VITAMIN B-12) 2,500 MCG TAB.SUBL SL SCH (09:56)
[2020-11-26] MEDS: ESCITALOPRAM OXALATE 10 MG TAB PO SCH (09:57)
[2020-11-26] MEDS: CALCIUM 600MG + VIT D 400 IU TAB PO SCH (09:57)
[2020-11-26] MEDS: INSULIN GLARGINE SOLOSTAR 100 UNITS/ML 3 ML PEN SC SCH ×2 (09:58→20:27)
[2020-11-26] MEDS: INSULIN ASPART 100 UNITS/ML 3 ML PEN SC SCH ×4 (10:00→20:30)
[2020-11-26] MEDS: SODIUM CHLORIDE 0.9% 1000ML 1,000 ML IV SCH ×2 (12:19→21:44)
[2020-11-26] MEDS: MAGNESIUM OXIDE 400 MG TAB PO SCH ×2 (12:56→20:25)
--- NOTE | 2020-11-26 13:57 | Hospitalist Progress Note ---
Date of Service November 26, 2020 Assessment & Plan (1) Osteomyelitis: Mrs. Parker is a 75 yo woman with a PMHx of type II diabetes mellitus, CAD, and HTN who is being admitted for failed outpatient treatment of a wound on the plantar surface of the R thrid toe, with imaging concerning for osteomyelitis. - recently completed 4 weeks of IV Ertapenem for presumed osteomyelitis of R great toe wound (Culture from 10/06/20 + for ESBL) - Wound culture of R 3rd digit obtained in wound care clinic on 11/16 growing MSSA. Progressive despite 48 hours of cefdinir - XR of R toe showing subtle erosive change at the distal tuft of the third toe, suggestive of osteomyelitis - No leukocytosis - new wound culture obtained from R third toe on arrival to ED Wound culture Staph aureus, sensitivities pending - ID consulted - recommends change to cefazolin, can resume vancomycin if culture shows MRSA. Recommends amputation and then 5-7 days of Keflex 500 mg qid post amputation if residual soft tissue infection is noted post amputation - wound care nurse consulted - s/p amputation on 11/[address] Lockhart (2) Diabetic ulcer of right foot: - patient currently following with [facility] clinic and diabetic foot clinic for treatment of 3 wounds on R foot - wears diabetic shoes - currently offloading R foot with CAM boot - has bilateral scratches on the top of her feet due to CAM boot - will need to monitor these wounds (3) CAD (coronary artery disease): - continue home dose atorvastatin and daily baby ASA (4) Type 2 diabetes mellitus: - HbA1c at goal for age at 7.2 (10/06/20) - hold oral home anti-glycemics - Lantus + sliding scale while inpatient - on ARB and statin - carb consistent, heart healthy diet when not NPO (5) HTN (hypertension): - continue home irbesartan - continue home metoprolol tartrate Start amlodipine 2.5 mg daily, 1st dose today secondary to continued elevated blood pressure (6) CKD (chronic kidney disease) stage 3, GFR 30-59 ml/min: - Stable, avoid nephrotoxins where possible (7) Breast cancer: - continue home anastrazole (8) Depression: - continue home escitalopram Code: Full, I discussed with patient (9) COPD with asthma: Not in exacerbation at this time. Continue home albuterol prn PFT's 11/23/2019: Moderate obstructive lung dysfunction. Significant bronchodilator response. Normal DLCO. Normal lung volumes. (10) DVT prophylaxis: Heparin subq , hold after midnight Admission and Anticipated Discharge Date Admission Date: November 23, 2020 Subjective Pt feels she is doing well post-op. No major pain to toe. Tolerated lunch without issue. Pt denies fever, SOB, chest pain, abd pain, n/v/c/d, LE swelling. Review of Systems Review of Systems: Pertinent positives and negatives reviewed in HPI--all others negative Physical Exam Constitutional: WD/WN, vitals as above Eyes: normal visual haddad by confrontation and + anicteric sclerae Neck: normal visual inspection and trachea midline Respiratory: normal respiratory effort, lungs clear to auscultation Cardiovascular: Rate/Rhythm: regular rate and regular rhythm Gastrointestinal (Abdomen): Inspection/Auscultation: abdomen not distended Percussion/Palpation: abdomen soft; abdomen nontender Musculoskeletal: Head/Neck/Chest: normocephalic and head atraumatic negative for edema, peripheral pulses intact Skin: no rashes, warm and dry Neurologic: awake; not confused Speech / Cognition: normal speech Psychiatric: A+Ox3, euthymic affect Results & Data Results & Data ([facility]) Vital Signs (Past 12 Hours) Vital Signs Temp Pulse Pulse Resp BP Pulse Ox 11/26/20 13:10 36.8 C 67 18 165/72 H 94 11/26/20 11:54 36.8 C 66 18 109/61 95 11/26/20 10:09 68 16 181/83 H 95 11/26/20 09:52 51 L 16 149/75 H 93 11/26/20 09:10 36.7 C 57 L 16 160/77 H 95 11/26/20 08:55 36.3 C L 58 L 14 141/67 H 93 11/26/20 08:45 58 L 12 157/70 H 100 11/26/20 08:39 36.1 C L 62 12 150/72 H 99 11/26/20 07:17 36.6 C 63 21 183/92 H 98 PG Care Time/CCT Total # of Minutes Spent Total Time Spent with Patient: Total time spent is greater than 50% in coordination of care (as documented) at patient's floor/unit and/or counseling patient: Coding Level of Care Code 49935 Subseq Hosp Care Lvl 2 Diagnoses Osteomyelitis M86.9 Osteomyelitis location: unspecified site Osteomyelitis type: unspecified type Diabetic ulcer of right foot E11.621; L97.519 CAD (coronary artery disease) I25.10 Type 2 diabetes mellitus E11.9 HTN (hypertension) I10 Hypertension type: unspecified CKD (chronic kidney disease) stage 3, GFR 30-59 ml/min N18.3 Breast cancer C50.919 Depression F32.9 COPD with asthma J44.9 DVT prophylaxis Z29.9 (1) Osteomyelitis Osteomyelitis location: unspecified site Osteomyelitis type: unspecified type Qualified Code(s): M86.9 - Osteomyelitis, unspecified (2) HTN (hypertension) Hypertension type: unspecified Qualified Code(s): I10 - Essential (primary) hypertension
[2020-11-26] MEDS: HEPARIN SOD 5,000 UNIT/0.5 ML VIAL SQ SCH (20:25)
[2020-11-26] MEDS: ATORVASTATIN 40 MG TAB PO SCH (20:25)
[2020-11-27] MEDS: ceFAZolin 2000MG 2,000 MG/15 ML SYR IV SCH ×2 (05:32→14:13)
--- NOTE | 2020-11-27 06:21 | Orthopedic Progress Note ---
Date of Service November 27, 2020 Assessment & Plan (1) Status post amputation of toe: Overall she is doing very well. She can be weightbearing as tolerated in her cam walker boot. She is orthopedically stable for discharge today if the hospitalist and infectious disease feel safe sending her home on oral antibiotics. There was good bleeding around the surgical site which is a good sign. However, due to her multiple diabetic foot ulcers, it would be nice to have a vascular consultation either in the hospital or as an outpatient in the near future. If she is discharged home today, the dressing can be changed immediately before discharge. She can do daily dry dressing changes. She will likely need to follow-up with wound clinic regarding the other ulcerations on her foot. Full orthopedic discharge instructions were placed in the discharge summary. Chato Dee was seen and examined at bedside this morning. Overall she is doing fairly well. She is not having any pain in her right foot. She had no acute events overnight.. Review of Systems All systems reviewed & are unremarkable except as noted in HPI & below. Physical Exam Physical examination of the right foot, there is a little bit of dried blood on the bandage but overall the bandage looks good. Her surrounding toes look fine.. Results & Data Results & Data Laboratory Results . Diagnostic Findings . PG Care Time/CCT Total # of Minutes Spent Total Time Spent with Patient: Total time spent is greater than 50% in coordination of care (as documented) at patient's floor/unit and/or counseling patient: Coding Level of Care Code 28808 Post Operative Follow-Up Diagnoses Status post amputation of toe Z89.429
[2020-11-27] MEDS: SODIUM CHLORIDE 0.9% 1000ML 1,000 ML IV SCH (08:36)
[2020-11-27] MEDS: IRBESARTAN 150 MG TAB PO SCH (09:01)
[2020-11-27] MEDS: amLODIPine BESYLATE 5 MG TAB PO SCH (09:01)
[2020-11-27] MEDS: ASPIRIN 81 MG ECTAB PO SCH (09:01)
[2020-11-27] MEDS: MAGNESIUM OXIDE 400 MG TAB PO SCH (09:01)
[2020-11-27] MEDS: ANASTROZOLE 1 MG TAB PO SCH (09:02)
[2020-11-27] MEDS: METOPROLOL TARTRATE 25 MG TAB PO SCH (09:02)
[2020-11-27] MEDS: ESCITALOPRAM OXALATE 10 MG TAB PO SCH (09:02)
[2020-11-27] MEDS: CYANOCOBALAMIN (VITAMIN B-12) 2,500 MCG TAB.SUBL SL SCH (09:02)
[2020-11-27] MEDS: FERROUS SULFATE 325 MG TAB PO SCH (09:02)
[2020-11-27] MEDS: CALCIUM 600MG + VIT D 400 IU TAB PO SCH (09:02)
[2020-11-27] MEDS: CHOLECALCIFEROL 1,000 UNITS 25 MCG TAB PO SCH (09:02)
[2020-11-27] MEDS: INSULIN GLARGINE SOLOSTAR 100 UNITS/ML 3 ML PEN SC SCH (09:03)
[2020-11-27] MEDS: INSULIN ASPART 100 UNITS/ML 3 ML PEN SC SCH ×2 (09:05→12:55)
[2020-11-27] MEDS: HEPARIN SOD 5,000 UNIT/0.5 ML VIAL SQ SCH (09:06)
--- NOTE | 2020-11-27 09:35 | Consultation ---
Date of Consultation November 27, 2020 Assessment & Plan (1) Peripheral artery disease: Pt with mild PAD and R toe wound which required 3rd toe amputation. No indications for vascular surgical intervention at this time. Will reeval pt for healing in 4-6 weeks to determine whether further vascular surgical intervention needed. Please call if needed in meantime. Pt agreeable to plan. History of Present Illness Reason for Consultation: RLE PAD, 3rd toe infection Attending Physician: Adriane Matt MD History of Present Illness 75 yo f with hx of COPD, DMII, HALEY, breast ca, CKD, diabetic neuropathy, CAD, dyslipidemia, HTN, admitted with R 3rd toe infection, seen in consultation today for PAD noted on US. Pt underwent amputation of R 3rd toe by Dr Lockhart and according to notes, there was good bleeding during procedure. Pt states she had a wound to her R 1st toe that she has been getting care for, and was cleaning her feet and dislodged a large callous on her R 3rd toe a few weeks ago. Pt states she went to wound clinic and was advised to come to [facility]. Denies any previous claudication or toe discoloration sx. Denies rest pain, but does admit restless legs at night. Denies LOBATO, fever, chest pain, SOB, abd pain, N/V, other complaints. Arterial US demonstrates mild PAD, with biphasic flow to feet. Arteries are calcified. Allergies Allergy/AdvReac Type Severity Reaction Status Date / Time benzonatate Allergy Unknown PATIENT IS Verified 11/23/20 15:43 UNAWARE OF REACTION WAS PLACED ON CHART propoxyphene Allergy Unknown PATIENT IS Verified 11/23/20 15:43 UNAWARE OF REACTION WAS PLACED ON CHART codeine AdvReac Intermediate NAUSEA/VOMI Verified 11/23/20 15:43 TING Home Medications Medication Instructions Recorded Confirmed Type cyanocobalamin (vitamin B-12) 2,500 mcg SL QAM tab 07/29/19 11/23/20 History 2,500 mcg sublingual tablet ferrous sulfate 325 mg (65 mg 325 mg PO BID tab 07/29/19 11/23/20 History iron) tablet atorvastatin 40 mg tablet 40 mg PO HS #90 tab 11/11/19 11/23/20 Rx albuterol sulfate 90 mcg/actuation 1 puffs INH Q6H PRN #8.5 gm 12/14/19 11/23/20 Rx aerosol inhaler inhalational spacing device #1 ea 12/14/19 11/23/20 Rx blood sugar diagnostic #300 ea 04/20/20 11/23/20 Rx anastrozole 1 mg PO QAM 06/21/20 11/23/20 History aspirin [Aspirin Low Dose] 81 mg PO QAM 06/21/20 11/23/20 History calcium carbonate 600 mg PO QAM 06/21/20 11/23/20 History metoprolol tartrate 25 mg tablet 25 mg PO BID #180 tab 06/29/20 11/23/20 Rx repaglinide 1 mg tablet 1 mg PO TID #270 tab 07/06/20 11/23/20 Rx clotrimazole-betamethasone 1 1 applic TOP BID PRN #45 g 08/01/20 11/23/20 Rx %-0.05 % topical cream acetaminophen [Tylenol Extra 1,500 mg PO Q6H PRN 10/06/20 11/23/20 History Strength] escitalopram oxalate 10 mg PO QAM 10/06/20 11/23/20 History irbesartan 300 mg PO QAM 10/06/20 11/23/20 History montelukast [Singulair] 10 mg PO Q OTHER DAY PRN 10/06/20 11/23/20 History cholecalciferol (vitamin D3) 50 2,000 unit PO QAM cap 10/12/20 11/23/20 History mcg (2,000 unit) capsule magnesium oxide 600 mg PO BID tab 10/17/20 11/23/20 History metformin 1,000 mg tablet 1,000 mg PO .am tab 10/17/20 11/23/20 History metformin 500 mg tablet 1,500 mg PO .q pm tab 10/17/20 11/23/20 History sitagliptin 100 mg tablet 100 mg PO QAM #90 tab 11/13/20 11/23/20 Rx cefdinir 300 mg capsule 300 mg PO BID 14 Days #28 cap 11/20/20 11/23/20 Rx Patient History Medical History Anemia Breast cancer CAD (coronary artery disease) CKD (chronic kidney disease) stage 3, GFR 30-59 ml/min COPD with asthma Diabetic peripheral neuropathy associated with type 2 diabetes mellitus Dyslipidemia History of asthma History of cough History of diabetic ulcer of foot History of duodenal ulcer History of edema History of impacted cerumen History of psoriasis HTN (hypertension) Non-occlusive coronary artery disease Sleep apnea Type 2 diabetes mellitus Surgical History H/O mastectomy History of colonoscopy History of esophagogastroduodenoscopy History of removal of Port-a-Cath central IV port placement--Dr. Sorto 01/08/2016 removal-04/07/18 S/P foot surgery Family History Unknown Congestive heart failure Mother Congestive heart failure Sister Hypertension Diabetes Hyperlipidemia Social History Smoking Status: Former smoker Second Hand Exposure: No; Hx Alcohol Use: No Hx Substance Use: No Preferred Language: Urdu Communication Ability: Effective Visual Impairment: Limited Hearing Ability: Normal Merchandise Marker Required: No Beliefs That Will Affect Care: None marital status: Current Living Situation: Alone current occupational status: retired Other Information That Helps Us Care for You: No Feels Safe at Home: Yes Safety Concerns: Feels Safe At This Time Childhood Exposure to Second-Hand Smoke: Yes caffeine: Yes Dental Care, Regularly: Yes Physical Activity Frequency: 3-4 Times per Week Seatbelt Use: always Sunscreen Use: No Assistive Devices: Walker Review of Systems Review of Systems: All systems reviewed & are unremarkable except as noted in HPI & below Physical Exam Constitutional: WD/WN, vitals as above + obese, healthy appearing, cooperative and comfortable; not in distress Eyes: PERRL, conjunctivae normal, anicteric sclerae ENMT: Ears: no hearing impairment Neck: trachea midline Respiratory: normal respiratory effort, lungs clear to auscultation Cardiovascular: Rate/Rhythm: regular rate and regular rhythm Vessels: femoral pulses present, posterior tibial pulses present, dorsalis pedis pulses present and brachial pulses present; + abnormal peripheral pulses Extremities: normal capillary refill and + edema (mild RLE) Gastrointestinal (Abdomen): normal bowel sounds, soft, nontender, no hepatosplenomegaly Musculoskeletal: no cyanosis or clubbing, extremities motor strength 5/5 Skin: no rashes, warm and dry Neurologic: moves all extremities and awake; no focal motor deficits and not confused Psychiatric: A+Ox3, euthymic affect Results & Data ([facility]) Vital Signs (Past 12 Hours) Vital Signs Temp Pulse Resp BP Pulse Ox 11/27/20 07:29 36.8 C 62 16 174/81 H 93 11/26/20 23:30 36.8 C 64 20 181/78 H 94
--- NOTE | 2020-11-27 16:13 | Discharge Summary ---
Date of Service November 27, 2020 Admission HPI Per Admitting Provider Mrs. Parker is a 75 yo woman with a PMHx of type II diabetes mellitus, CAD, and HTN who was referred to the ED by [facility] due to concerns for developing cellulitis and possible osteomyelitis of the right third toe despite treatment with 48 hours of cefdinir. Mrs. Parker follows with wound care clinic and diabetic foot clinic for treatment of 3 R foot ulcers. She does wear diabetic shoes, except in the summer time she wears water shoes around her pool. Of note, she was started on 4 week course of IV Ertapenem (US guided peripheral IV line) in early October 2020 for suspected osteomyelitis of the R great toe (completed 2 weeks ago). MRI of the R foot was obtained during the October hospital stay - although it did not show definitive evidence of bone involvement, a tendon was exposed through the wound, so she was treated for presumed osteomyelitis. Mrs. Parker did have SHERWIN and a bilateral lower extremity duplex study during her October hospital admission, which showed diffuse plaque of the lower legs without arterial occlusion. She has been offloading her R foot with a CAM walker for the past 6 weeks. No allergies to antibiotics. Social Hx: 10 pack year history of cigarette smoking, quit in 1978 In the ED she was afebrile with a normal HR and BP. Her WBC was not elevated. Cr normal. Wound culture was obtained. XR of R foot showed subtle erosive change at the distal tuft of the third toe, suggestive of osteomyelitis. She was given 1 dose of IV meropenem and vancomycin. Principal Diagnosis Toe osteomyelitis, s/p toe amputation Discharge Exam Constitutional WD/WN, vitals as above Eyes + anicteric sclerae Neck trachea midline, no thyromegaly Respiratory normal respiratory effort, lungs clear to auscultation Cardiovascular RRR, no murmur, no edema Chest (Breasts) Chest: normal inspection of chest Gastrointestinal (Abdomen) normal bowel sounds, soft, nontender, no hepatosplenomegaly Musculoskeletal Extremities: no cyanosis and no clubbing right foot with dressing in place not removed Skin no rashes, warm and dry Neurologic moves all extremities and awake; no focal motor deficits Psychiatric A+Ox3, euthymic affect Lymphatic no lymphedema Discharge Data Allergies Allergy/AdvReac Type Severity Reaction Status Date / Time benzonatate Allergy Unknown PATIENT IS Verified 11/23/20 15:43 UNAWARE OF REACTION WAS PLACED ON CHART propoxyphene Allergy Unknown PATIENT IS Verified 11/23/20 15:43 UNAWARE OF REACTION WAS PLACED ON CHART codeine AdvReac Intermediate NAUSEA/VOMI Verified 11/23/20 15:43 TING Consultations 11/23/20 17:23 ED Decision to Admit Stat 11/23/20 21:09 Consult Infectious Diseases Routine Consult Orthopedic Surgery Routine 11/24/20 17:20 Consult Vascular Surgery Routine Procedures Performed Operation Date: 11/26/20 07:30 Actual Procedures p Amputation right 3rd toe(Right) - Jose Lockhart, Ordered Studies 11/24/20 16:38 MR foot RT w/o con Urgent Toe xray Hospital Course (1) Osteomyelitis: Mrs. Parker is a 75 yo woman with a PMHx of type II diabetes mellitus, CAD, and HTN who is being admitted for failed outpatient treatment of a wound on the plantar surface of the R thrid toe, with imaging concerning for osteomyelitis. - recently completed 4 weeks of IV Ertapenem for presumed osteomyelitis of R great toe wound (Culture from 10/06/20 + for ESBL) - Wound culture of R 3rd digit obtained in wound care clinic on 11/16 growing MSSA. Progressive despite 48 hours of cefdinir - XR of R toe showing subtle erosive change at the distal tuft of the third toe, suggestive of osteomyelitis; MRI here confirmed OM of the toe - No leukocytosis - new wound culture obtained from R third toe on arrival to ED with MSSA - ID consulted - recommended change to cefazolin, toe amputation, and then 5-7 days of Keflex 500 mg qid post amputation if residual soft tissue infection is noted post amputation - wound care nurse consulted-will have outpt f/u with Wound Care center - s/p amputation on 11/[address] Lockhart, doing well, stable for dc to home with walking boot, f/u Ortho in 2-3 weeks, continue daily dry dressings (2) Diabetic ulcer of right foot: - patient currently following with [facility] and diabetic foot clinic for treatment of 3 wounds on R foot - wears diabetic shoes - currently offloading R foot with CAM boot - has bilateral scratches on the top of her feet due to CAM boot - will need to monitor these wounds (3) CAD (coronary artery disease): - continue home dose atorvastatin and daily baby ASA (4) Type 2 diabetes mellitus: - HbA1c at goal for age at 7.2 (10/06/20) - held oral home anti-glycemics but can restart on dc - Lantus + sliding scale while inpatient - on ARB and statin - carb consistent, heart healthy diet (5) HTN (hypertension): - continue home irbesartan - continue home metoprolol tartrate Started amlodipine 2.5 mg daily for continued elevated blood pressure (6) CKD (chronic kidney disease) stage 3, GFR 30-59 ml/min: - Stable, avoid nephrotoxins where possible (7) Breast cancer: - continue home anastrazole (8) Depression: - continue home escitalopram (9) COPD with asthma: Not in exacerbation at this time. Continue home albuterol prn PFT's 11/23/2019: Moderate obstructive lung dysfunction. Significant bronchodilator response. Normal DLCO. Normal lung volumes. (10) DVT prophylaxis: Heparin subq Dispo-stable for dc to home, declines home health Total Time Total Time Spent Total Time Spent (In Minutes): 35 min Total Time Includes: Examination of the Patient, Discharge Planning and Medicati on Reconciliation Discharge Plan Discharge Items Patient Disposition: Home - Self-Care Reason For Visit: OSTEOMYELITIS Discharge Diagnosis: Toe osteomyelitis Toe amputation Activity: As commented below Non-emergency contact: Primary Care Provider and Surgeon Call non-emergency contact if: you have any medication questions, your symptoms worsen, your pain is not controlled, your pain is worsening, your pain is unusual for you, you have a fever, your wound has increased redness and your wound has increased drainage Follow-up/Referrals: Abimael Vargas MD [Primary Care Provider] - (Follow up within 1-2 weeks.) Raymond Holt MD [Physician] - (Follow up with Vascular Surgery in 4-6 weeks.) Jose Lockhart DO [Physician] - (Follow up as planned below ) Diet: Carb Consistent or DM2 and Heart Healthy Addtl Attending Provider Instructions: ORTHOPEDIC INSTRUCTIONS Activity Recommendations: Weightbearing as tolerated in the cam walker boot. Medications: Take oral antibiotics as prescribed by the hospitalist. This will be Keflex 500mg by mouth four times a day x 7 days. Dressing Care: Daily dry dressing changes. You may leave the incision open to air if you are not ambulating on it. Showering: Do not get the incision wet in a shower until follow-up in the office in 2 weeks. Things To Watch For: 1. Drainage from the incision site that occurs more than one week after your surgery. 2. Increased redness at the incision site. 3. Fever above 102 degrees Fahrenheit. 4. Unusual chest pain or shortness of breath. 5. Call [facility] at with any of the above problems Follow-Up Visit: Follow-up with Dr. Lockhart's PA (Jose Huizar) 2-3 weeks after your day of surgery. He will remove your di and answer any questions. If you have any additional questions or concerns, Dr Lockhart is usually in the office at the same time and will be available An appointment was probably scheduled when you signed-up for surgery in the office. If you have any questions call Addtl Books Binder Provider Instructions: You were started on amlodipine for your blood pressure at 2.5mg once daily. Please check your blood pressure once daily at home and follow up with your PCP. Pending Studies at Discharge: No Stand-Alone Forms: My [facility] Medications and DC Order Prescriptions: New amlodipine [Norvasc] 5 mg Tablet 2.5 mg PO QAM Qty: 15 RF: 0 cephalexin [Keflex] 500 mg capsule 500 mg PO Q6H 7 Days Qty: 28 RF: 0 Continued (DME) OneTouch Ultra Blue Test Strip Strip See Dose Instructions .ROUTE .MEDSUPPLY Qty: 300 RF: 3 metoprolol tartrate 25 mg tablet 25 mg PO BID Qty: 180 RF: 3 repaglinide 1 mg tablet 1 mg PO TID Qty: 270 RF: 3 clotrimazole-betamethasone 1-0.05 % cream 1 applic TOP BID PRN (Reason: candidal intertrigo) Qty: 45 RF: 1 cholecalciferol (vitamin D3) 50 mcg (2,000 unit) capsule 2,000 unit PO QAM RF: 0 sitagliptin 100 mg tablet 100 mg PO QAM Qty: 90 RF: 3 atorvastatin 40 mg tablet 40 mg PO HS Qty: 90 RF: 3 ferrous sulfate 325 mg (65 mg iron) tablet 325 mg PO BID RF: 0 cyanocobalamin (vitamin B-12) 2,500 mcg tablet, sublingual 2,500 mcg SL QAM RF: 0 albuterol sulfate [Ventolin HFA] 90 mcg/actuation HFA aerosol inhaler 1 puffs INH Q6H PRN (Reason: shortness of breath or wheezing) Qty: 8.5 RF: 0 (DME) Aerochamber Plus Z Stat Spacer See Rx Instructions .ROUTE .MEDSUPPLY Qty: 1 RF: 0 metformin 1,000 mg tablet 1,000 mg PO .am RF: 0 metformin 500 mg tablet 1,500 mg PO .q pm RF: 0 magnesium oxide 400 mg magnesium tablet 600 mg PO BID RF: 0 anastrozole 1 mg tablet 1 mg PO QAM RF: 0 aspirin [Aspirin Low Dose] 81 mg Tablet,Delayed Release (Dr/Ec) 81 mg PO QAM RF: 0 calcium carbonate 600 mg calcium (1,500 mg) Tablet 600 mg PO QAM RF: 0 montelukast [Singulair] 10 mg tablet 10 mg PO Q OTHER DAY PRN (Reason: asthma) RF: 0 irbesartan 300 mg tablet 300 mg PO QAM RF: 0 escitalopram oxalate 10 mg tablet 10 mg PO QAM RF: 0 Changed acetaminophen [Tylenol Extra Strength] 500 mg Tablet 1,000 mg PO Q6H PRN (Reason: Pain) Qty: 0 RF: 0 Discontinued cefdinir 300 mg capsule 300 mg PO BID 14 Days Qty: 28 RF: 0 Discharge Orders: Discharge Order (Routine); Ordered 11/27/20 Ordered By: Adriane Matt Admission Data Admit Date/Time: 11/23/20 19:34 Attending Provider: Adriane Matt Admit Provider: Migdalia Delarosa Primary Care Provider: Abimael Vargas Other Providers: Jose Bess ; Kenny Mansfield ; Scott Phillips ; Dev Mayen ; Angel Bermudez I. ; Pablo Corral II ; Ghislaine Fish ; Simone Cruz ; Jose Lockhart ; Raymond Holt Other Interventions: Discharge Summary Assessment (RN) Last Done: 11/27/20 14:20 Coding Level of Care Code D/C Day Management >30 mins Diagnoses Osteomyelitis M86.9 Osteomyelitis location: unspecified site Osteomyelitis type: unspecified type Diabetic ulcer of right foot E11.621; L97.519 CAD (coronary artery disease) I25.10 Type 2 diabetes mellitus E11.9 HTN (hypertension) I10 Hypertension type: unspecified CKD (chronic kidney disease) stage 3, GFR 30-59 ml/min N18.3 Breast cancer C50.919 Depression F32.9 COPD with asthma J44.9 DVT prophylaxis Z29.9
--- NOTE | 2020-11-28 13:44 | Billing Data ---
Date of Service November 23, 2020 Coding Level of Care Code 93478 Initial Inpt Care Lvl 2
== END 2020-11-27 16:32 | disposition home or self-care (01) | DRG 617 ==
LOC: ED 14:37 → 3N 19:34 → SUATTDRO 19:34 → 3N 20:36